=== PATIENT | female | born 1955 ===

== ENCOUNTER 2020-06-05 16:16 | Inpatient (IN) | payer OTHER ==
[2020-06-05] MEDS ORDERED: ONDANSETRON 4 MG/2 ML INJ ONE (16:28)
[2020-06-05] MEDS ORDERED: SODIUM CHLORIDE 0.9% 1000 ML 1,000 ML ONE (16:28)
[2020-06-05] MEDS ORDERED: SODIUM CHLORIDE 0.9% 1000 ML 1,000 ML IV ONE ×2 (16:31→16:32)
--- NOTE | 2020-06-05 16:33 | Emergency Department Report ---
ED General Adult HPI - General Chief complaint: Weakness Stated complaint: HIGH BLOOD SUGAR/NAUSEA VOMITING PUI?: No Time Seen by Provider: 06/05/20 16:25 Source: patient, EMS (Verbal report received from emergency medical services verbal report received from emergency medical services), RN notes reviewed Mode of arrival: Stretcher Limitations: Physical Limitation - History of Present Illness Initial comments: The patient was evaluated in the emergency department for symptoms described in the history of present illness. He/she was evaluated in the context of the global COVID-19 pandemic, which necessitated consideration that the patient might be at risk for infection with the virus that causes COVID-19. Institutional protocols and algorithms that pertain to the evaluation of patients at risk for COVID-19 are in a state of rapid change based on information released by regulatory bodies including the CDC and federal and state organizations. These policies and algorithms were followed during the patient's care in the emergency department. Please note that these policies, procedures and recommendations changed on a rapid basis. Patient is a 64-year-old female. She is not known to myself previously. She has a history of diabetes. She cannot recall the name of her primary care doctor. Presents to the ER via EMS with a complaint of abdominal cramping, nausea vomiting, malaise and weakness. Patient denies fever, positive dry cough, positive urinary retention, positive dry mouth. Patient indicates symptoms have been present for 1 day, constant, abdominal cramping is diffusely distributed, and symptoms do not have exacerbating or relieving factors that she is aware of. Patient speaks both Maltese and Azerbaijani, and this provider is conversant in Azerbaijani. -: Gradual, hour(s) Location: abdomen Consistency: constant Improves with: none Worsens with: none - Related Data Allergies Allergy/AdvReac Type Severity Reaction Status Date / Time sunflower seed Allergy Anaphylaxis Verified 06/05/20 16:53 ED Review of Systems ROS: Stated complaint: HIGH BLOOD SUGAR/NAUSEA VOMITING Other details as noted in HPI Constitutional: malaise, weakness Eyes: denies: eye discharge ENT: denies: congestion Respiratory: no symptoms reported Cardiovascular: denies: chest pain Gastrointestinal: abdominal pain, nausea Genitourinary: as per HPI, other (Urinary retention) Musculoskeletal: as per HPI Neurological: weakness ED Physical Exam - General Limitations: Physical Limitation General appearance: alert, anxious, in distress, obese - Head Head exam: Present: atraumatic, normocephalic - Eye Eye exam: Present: normal appearance, EOMI. Absent: nystagmus - ENT ENT exam: Present: normal exam, normal orophraynx, mucous membranes dry, normal external ear exam - Neck Neck exam: Present: normal inspection, full ROM. Absent: tenderness, meningismus - Respiratory Respiratory exam: Present: normal lung sounds bilaterally. Absent: respiratory distress, wheezes, rales, rhonchi, stridor, decreased breath sounds - Cardiovascular Cardiovascular Exam: Present: normal rhythm, tachycardia, normal heart sounds. Absent: systolic murmur, diastolic murmur, rubs, gallop - GI/Abdominal GI/Abdominal exam: Present: soft, tenderness, other (Mild diffuse abdominal tenderness). Absent: distended, guarding, rebound, rigid, pulsatile mass - Extremities Exam Extremities exam: Present: normal inspection, full ROM, other (2+ pulses noted in the bilateral upper and lower extremities. There is no palpable cord. negative Homans sign. Muscular compartments are soft. The pelvis is stable.). Absent: pedal edema, calf tenderness - Back Exam Back exam: Present: normal inspection. Absent: tenderness, CVA tenderness (R), CVA tenderness (L), paraspinal tenderness, vertebral tenderness - Neurological Exam Neurological exam: Present: alert, other (No facial droop. Tongue midline. Extraocular movements intact bilaterally. Facial sensation intact to light touch in V1, V2, V3 distribution bilaterally. 5 and a 5 strength in 4 extremities. Sensation intact to light touch in 4 extremities.) - Psychiatric Psychiatric exam: Present: anxious - Skin Skin exam: Present: warm, dry, intact, normal color. Absent: rash ED Course Vital Signs 06/05/20 06/05/20 16:35 17:41 Temperature 97.1 F L Pulse Rate 111 H Respiratory 18 18 Rate Blood Pressure 145/84 O2 Sat by Pulse 99 Oximetry - Reevaluation(s) Reevaluation #1: 06/05/20 17:38 Differential diagnosis, including but not limited to: Diabetic ketoacidosis, pneumonia, urinary tract infection, obstruction, obstructive uropathy, gastroparesis, dehydration, hyperosmolar state Assessment and plan: 64-year-old female with abdominal pain, nausea, vomiting and hyperglycemia. Patient found to have metabolic acidosis, hyperglycemia, pseudohyponatremia, lactic acidosis, and renal insufficiency. She endorsed inability to urinate. Ritchie catheter to be placed. X-ray the chest, CT scan of the abdomen pelvis obtained. Patient will be given fluids, pain medication, high-dose insulin. Reassess after data points have resulted. Anticipate admission for the aforementioned. Reevaluation #2: 06/05/20 18:02 CT scan, x-ray of the chest suggested right lower lobe pneumonia, question bacterial versus viral, and possible small bowel obstruction. Pain medication, antibiotics ordered. Nasogastric tube ordered. Discussed pertinent history, physical, pertinent laboratory studies, physical exam findings and CT scan findings with general surgeon on-call, Dr. Moya. He will follow in consultation. Hospital physician, Dr. Yao Nair to admit ED Medical Decision Making - Lab Data Result diagrams: 06/05/20 16:38 06/05/20 16:38 Vital Signs 06/05/20 16:35 Temperature 97.1 F L Pulse Rate 111 H Respiratory 18 Rate Blood Pressure 145/84 O2 Sat by Pulse 99 Oximetry Lab Results 06/05/20 06/05/20 06/05/20 Range/Units 16:38 16:38 16:38 WBC (4.5-11.0) K/mm3 RBC (3.65-5.03) M/mm3 Hgb (10.1-14.3) gm/dl Hct (30.3-42.9) % MCV (79-97) fl MCH (28-32) pg MCHC (30-34) % RDW (13.2-15.2) % Plt Count (140-440) K/mm3 Lymph % (Auto) (13.4-35.0) % Hall % (Auto) (0.0-7.3) % Eos % (Auto) (0.0-4.3) % Baso % (Auto) (0.0-1.8) % Lymph # (Auto) (1.2-5.4) K/mm3 Hall # (Auto) (0.0-0.8) K/mm3 Eos # (Auto) (0.0-0.4) K/mm3 Baso # (Auto) (0.0-0.1) K/mm3 Seg Neutrophils % (40.0-70.0) % Seg Neutrophils # (1.8-7.7) K/mm3 PT (12.2-14.9) Sec. INR (0.87-1.13) VBG pH 7.227 L (7.320-7.420) Sodium (137-145) mmol/L Potassium (3.6-5.0) mmol/L Chloride (98-107) mmol/L Carbon Dioxide (22-30) mmol/L Anion Gap mmol/L BUN (7-17) mg/dL Creatinine (0.6-1.2) mg/dL Estimated GFR ml/min BUN/Creatinine Ratio % Glucose (65-100) mg/dL Lactic Acid 2.60 H* (0.7-2.0) mmol/L Calcium (8.4-10.2) mg/dL Magnesium 2.00 (1.7-2.3) mg/dL Total Bilirubin (0.1-1.2) mg/dL Direct Bilirubin (0-0.2) mg/dL AST (5-40) units/L ALT (7-56) units/L Alkaline Phosphatase (35-129) units/L Total Creatine Kinase 437 H (30-135) units/L Total Protein (6.3-8.2) g/dL Albumin (3.9-5) g/dL Albumin/Globulin Ratio % Lipase (13-60) units/L 06/05/20 06/05/20 06/05/20 Range/Units 16:38 16:38 16:38 WBC 12.2 H (4.5-11.0) K/mm3 RBC 4.98 (3.65-5.03) M/mm3 Hgb 14.2 (10.1-14.3) gm/dl Hct 44.5 H (30.3-42.9) % MCV 89 (79-97) fl MCH 29 (28-32) pg MCHC 32 (30-34) % RDW 13.8 (13.2-15.2) % Plt Count 208 (140-440) K/mm3 Lymph % (Auto) 10.0 L (13.4-35.0) % Hall % (Auto) 4.1 (0.0-7.3) % Eos % (Auto) 0.2 (0.0-4.3) % Baso % (Auto) 0.5 (0.0-1.8) % Lymph # (Auto) 1.2 (1.2-5.4) K/mm3 Hall # (Auto) 0.5 (0.0-0.8) K/mm3 Eos # (Auto) 0.0 (0.0-0.4) K/mm3 Baso # (Auto) 0.1 (0.0-0.1) K/mm3 Seg Neutrophils % 85.2 H (40.0-70.0) % Seg Neutrophils # 10.4 H (1.8-7.7) K/mm3 PT 12.1 L (12.2-14.9) Sec. INR 0.91 (0.87-1.13) VBG pH (7.320-7.420) Sodium 129 L (137-145) mmol/L Potassium 4.7 (3.6-5.0) mmol/L Chloride 97.5 L (98-107) mmol/L Carbon Dioxide 18 L (22-30) mmol/L Anion Gap 18 mmol/L BUN 36 H (7-17) mg/dL Creatinine 1.7 H (0.6-1.2) mg/dL Estimated GFR 30 ml/min BUN/Creatinine Ratio 21 % Glucose 521 H* (65-100) mg/dL Lactic Acid (0.7-2.0) mmol/L Calcium 8.9 (8.4-10.2) mg/dL Magnesium (1.7-2.3) mg/dL Total Bilirubin 0.40 (0.1-1.2) mg/dL Direct Bilirubin < 0.2 (0-0.2) mg/dL AST 33 (5-40) units/L ALT 21 (7-56) units/L Alkaline Phosphatase 163 H (35-129) units/L Total Creatine Kinase (30-135) units/L Total Protein 7.5 (6.3-8.2) g/dL Albumin 4.0 (3.9-5) g/dL Albumin/Globulin Ratio 1.1 % Lipase 49 (13-60) units/L - EKG Data -: EKG Interpreted by Me Rate: tachycardia - EKG Data When compared to previous EKG there are: previous EKG unavailable 06/05/20 17:38 Sinus rhythm, tachycardia, 109 bpm. Left axis deviation, left anterior fascicular block. PVC. Abnormal EKG. Not a STEMI. - Radiology Data Radiology results: pending, report reviewed, image reviewed CT ABDOMEN AND PELVIS WITHOUT CONTRAST INDICATION / CLINICAL INFORMATION: acute abd pain n/v, urinary retention. TECHNIQUE: Axial CT images were obtained through the abdomen and pelvis without IV contrast. All CT scans at this location are performed using CT dose reduction for ALARA by means of automated exposure control. COMPARISON: None available. FINDINGS: LOWER CHEST: Groundglass and nodular opacities in the right lung base with mild groundglass opacity of the left lung base. LIVER: Deniz's configuration versus mild hepatomegaly, measuring 19.0 cm. No focal lesion. GALLBLADDER/BILIARY TREE: Cholecystectomy. PANCREAS: No significant abnormality SPLEEN: No significant abnormality ADRENALS: No significant abnormality KIDNEYS / URETER: Lower pole right renal cyst. No hydronephrosis. URINARY BLADDER: There is mild trabeculation of the bladder, which may be related to partial decompression. No significant wall thickening or perivesicular stranding. REPRODUCTIVE ORGANS: Uterus is absent. No significant adnexal abnormality. STOMACH / SMALL BOWEL: Borderline dilated fluid-filled small bowel demonstrated throughout the abdomen and pelvis. There is relatively focal narrowing of the distal small bowel (series 2 image 143). The terminal ileum is decompressed. No pneumatosis. COLON: The colon is unremarkable. The appendix is normal in caliber. LYMPH NODES: No significant adenopathy. VASCULATURE: Mild atherosclerotic calcification without acute abnormality. OTHER: No free air, free fluid, or focal fluid collection is identified. SKELETAL SYSTEM: No significant findings. IMPRESSION: 1. Fluid-f illed, borderline dilated small bowel with area of mild focal narrowing of the distal small bowel, favoring low-grade partial small bowel obstruction. 2. Mild groundglass and nodular opacities in the right greater than left lung bases, suspicious for atypical infectious or inflammatory process. 3. Mild trabeculation of the bladder, which is likely related to partial decompression. No significant wall thickening or perivesicular stranding. 4. Other findings as above. Signer Name: Dustin Jacobs MD Signed: 06/05/2020 4:36 PM CHEST 1 VIEW INDICATION: n/v weak COMPARISON: None FINDINGS: Support devices: None Heart: Normal Lungs/Pleura: There is an ill-defined area of parenchymal density in the right lower lung, worrisome for focal pneumonia or, less likely, abnormal mass. Left lung is clear. IMPRESSION: 1. Right lower lung disease, most likely focal pneumonia. Suggest follow-up to document clearing and exclude lung mass. Signer Name: Odilon Berkowitz MD Signed: 06/05/2020 4:33 PM Workstation Name: [id number] Critical Care Time: Yes Critical care time in (mins) excluding proc time.: 35 Critical care attestation.: If time is entered above; I have spent that time in minutes in the direct care of this critically ill patient, excluding procedure time. ED Disposition Clinical Impression: Hyperglycemia, Metabolic acidosis, Renal insufficiency, Urinary retention, Lactic acidosis, Acute abdominal pain, Suspected 2019 novel coronavirus infection, UTI (urinary tract infection) Disposition: 09 OP ADMIT IP TO THIS HOSP Is pt being admited?: Yes Does the pt Need Aspirin: No Condition: Serious Referrals: PRIMARY CARE, [Primary Care Provider] - 3-5 Days
[2020-06-05 17:08] LABS: Basophils # (Auto) 0.1 K/mm3 (0.0-0.1); Basophils % (Auto) 0.5 % (0.0-1.8); Eosinophils % (Auto) 0.2 % (0.0-4.3); Hematocrit 44.5 % (30.3-42.9); Hemoglobin 14.2 gm/dl (10.1-14.3); Lymphocytes # (Auto) 1.2 K/mm3 (1.2-5.4); Mean Corpuscular HGB Conc 32 % (30-34); Mean Corpuscular Volume 89 fl (79-97); Monocytes # (Auto) 0.5 K/mm3 (0.0-0.8); Monocytes % (Auto) 4.1 % (0.0-7.3); Platelet Count 208 K/mm3 (140-440); Red Blood Count 4.98 M/mm3 (3.65-5.03); Red Cell Distribution Width 13.8 % (13.2-15.2)
[2020-06-05 17:18] LABS: INR 0.91 (0.87-1.13)
[2020-06-05 17:32] LABS: Alanine Aminotransferase 21 units/L (7-56); BUN/Creatinine Ratio 21; Blood Urea Nitrogen 36 mg/dL (7-17); Calcium 8.9 mg/dL (8.4-10.2); Hemolysis Index 58
[2020-06-05 17:34] LABS: Bilirubin,Direct < 0.2 mg/dL (0-0.2)
[2020-06-05] MEDS ORDERED: INSULIN REGULAR, HUMAN 100 UNITS/1 ML IV ONE (17:35)
[2020-06-05] MEDS ORDERED: METOCLOPRAMIDE 10 MG/2 ML INJ IV ONE (17:36)
--- NOTE | 2020-06-05 17:37 | XRay Report ---
CHEST 1 VIEW INDICATION: n/v weak COMPARISON: None FINDINGS: Support devices: None Heart: Normal Lungs/Pleura: There is an ill-defined area of parenchymal density in the right lower lung, worrisome for focal pneumonia or, less likely, abnormal mass. Left lung is clear. IMPRESSION: 1. Right lower lung disease, most likely focal pneumonia. Suggest follow-up to document clearing and exclude lung mass. Signer Name: Odilon Berkowitz MD Signed: 06/05/2020 5:33 PM Workstation Name: [id number]
--- NOTE | 2020-06-05 17:41 | Cat Scan Report ---
CT ABDOMEN AND PELVIS WITHOUT CONTRAST INDICATION / CLINICAL INFORMATION: acute abd pain n/v, urinary retention. TECHNIQUE: Axial CT images were obtained through the abdomen and pelvis without IV contrast. All CT scans at this location are performed using CT dose reduction for ALARA by means of automated exposure control. COMPARISON: None available. FINDINGS: LOWER CHEST: Groundglass and nodular opacities in the right lung base with mild groundglass opacity o f the left lung base. LIVER: Deniz's configuration versus mild hepatomegaly, measuring 19.0 cm. No focal lesion. GALLBLADDER/BILIARY TREE: Cholecystectomy. PANCREAS: No significant abnormality SPLEEN: No significant abnormality ADRENALS: No significant abnormality KIDNEYS / URETER: Lower pole right renal cyst. No hydronephrosis. URINARY BLADDER: There is mild trabeculation of the bladder, which may be related to partial decompre ssion. No significant wall thickening or perivesicular stranding. REPRODUCTIVE ORGANS: Uterus is absent. No significant adnexal abnormality. STOMACH / SMALL BOWEL: Borderline dilated fluid-filled small bowel demonstrated throughout the abdome n and pelvis. There is relatively focal narrowing of the distal small bowel (series 2 image 143). The terminal ileum is decompressed. No pneumatosis. COLON: The colon is unremarkable. The appendix is normal in caliber. LYMPH NODES: No significant adenopathy. VASCULATURE: Mild atherosclerotic calcification without acute abnormality. OTHER: No free air, free fluid, or focal fluid collection is identified. SKELETAL SYSTEM: No significant findings. IMPRESSION: 1. Fluid-filled, borderline dilated small bowel with area of mild focal narrowing of the distal small bowel, favoring low-grade partial small bowel obstruction. 2. Mild groundglass and nodular opacities in the right greater than left lung bases, suspicious for a typical infectious or inflammatory process. 3. Mild trabeculation of the bladder, which is likely related to partial decompression. No significan t wall thickening or perivesicular stranding. 4. Other findings as above. Signer Name: Dustin Jacobs MD Signed: 06/05/2020 5:36 PM Workstation Name: [id number]
[2020-06-05] MEDS ORDERED: cefTRIAXone/NS 1 GM/50 ML 1 GM/50 ML BAG IV ONE (17:55)
[2020-06-05] MEDS ORDERED: AZITHROMYCIN/NS 500 MG/250 ML 500 MG/250 ML BAG IV ONE (17:55)
[2020-06-05] MEDS ORDERED: SODIUM CHLORIDE 0.9% 500 ML 500 ML IV ONE (17:56)
[2020-06-05] MEDS ORDERED: MORPHINE 4 MG/1 ML INJ IV ONE (18:01)
[2020-06-05 18:23] LABS: Bacteria,Urine 3+ /HPF (Negative); Bilirubin,Urine NEG (Negative); Blood,Urine SM (Negative); Color,Urine Yellow (Yellow); Mucus,Urine FEW /HPF; Urobilinogen,Urine < 2.0 mg/dL (<2.0)
[2020-06-05 18:24] LABS: Protein,Urine >500 mg/dL (Negative)
[2020-06-05] MEDS ORDERED: DEXTROSE 50% IN WATER (25GM) 50 ML SYRINGE IV PRN (18:34)
[2020-06-05] MEDS ORDERED: MORPHINE 2 MG/1 ML INJ IV PRN (18:34)
[2020-06-05] MEDS ORDERED: ACETAMINOPHEN 325 MG TAB PO PRN (18:34)
[2020-06-05] MEDS ORDERED: ONDANSETRON 4 MG/2 ML INJ IV PRN (18:34)
--- NOTE | 2020-06-05 18:47 | History and Physical Report ---
History of Present Illness Date of examination: 06/05/20 Date of admission: 06/05/2020 Chief complaint: Nausea and vomiting Abdominal pain Elevated blood glucose History of present illness: 64-year-old female with known history of diabetes mellitus presenting to the e mergency room today complaining of nausea and vomiting and associated abdominal pain. She has also been having generalized weakness and malaise. She denies any fever or chills, no chest pain or shortness of breath, no hematuria or dysuria, no headaches or dizziness. Denies diarrhea or constipation. Patient denies any sick contacts and no recent travel. Denies contact with anyone with COVID-19. She also indicates that her blood glucose has not been well controlled. Patient indicates that symptoms has been ongoing for the past 24 hours. Abdominal pain has been crampy and diffuse. No known relieving or exacerbating factor. Work-up in the emergency room reveals elevated lactic acid level, hyperglycemia, hyponatremia and elevated BUN and creatinine. CT of the abdomen and pelvis reveals: 1. Fluid-filled, borderline dilated small bowel with area of mild focal narrowing of the distal small bowel, favoring low-grade partial small bowel obstruction. 2. Mild groundglass and nodular opacities in the right greater than left lung bases, suspicious for atypical infectious or inflammatory process. Urinalysis also reveals UTI. Patient has been admitted for small bowel obstruction, pneumonia with possible COVID-19 and lactic acidosis. General surgeon Dr. Moya has been consulted by the ER physician for the bowel obstruction. Past History Past Medical History: diabetes Past Surgical History: No surgical history Social history: no significant social history Family history: no significant family history Medications and Allergies Allergies Allergy/AdvReac Type Severity Reaction Status Date / Time sunflower seed Allergy Anaphylaxis Verified 06/05/20 16:53 Active Meds: Active Medications Azithromycin (Zithromax/Ns) 500 mg in 250 mls @ 250 mls/hr IV ONCE ONE; Protocol Stop: 06/05/20 18:54 Review of Systems Constitutional: no fever, no chills Ears, nose, mouth and throat: no nasal congestion, no sore throat Respiratory: no cough, no shortness of breath Gastrointestinal: abdominal pain, nausea, vomiting, no diarrhea, no hematemesis, no coffee ground emesis, no melena Genitourinary Female: no flank pain, no dysuria, no hematuria Musculoskeletal: no neck pain, no low back pain Integumentary: no rash, no pruritis Neurological: no headaches, no change in speech Psychiatric: no anxiety, no depression Endocrine: no polyphagia, no polydipsia, no polyuria, no nocturia Exam - Constitutional Vitals: Temp Pulse Resp BP Pulse Ox 97.1 F L 110 H 16 119/65 97 06/05/20 16:35 06/05/20 18:37 06/05/20 18:37 06/05/20 18:37 06/05/20 18:37 General appearance: Present: no acute distress, well-nourished, other (Ill- looking) - EENT Eyes: Present: PERRL, EOM intact. Absent: scleral icterus ENT: hearing intact, clear oral mucosa, dentition normal - Neck Neck: Present: supple, normal ROM - Respiratory Respiratory effort: normal Respiratory: bilateral: diminished - Cardiovascular Rhythm: regular Heart Sounds: Present: S1 & S2. Absent: gallop, systolic murmur, diastolic mu rmur, rub - Extremities Extremities: no ischemia, pulses intact, pulses symmetrical, No edema, normal temperature, normal color, Full ROM Peripheral Pulses: within normal limits - Abdominal General gastrointestinal: Present: soft, tender (Mild epigastric tenderness, no rebound tenderness, no guarding), non-distended, normal bowel sounds. Absent: mass - Integumentary Integumentary: Present: clear, warm, dry. Absent: rash - Musculoskeletal Musculoskeletal: strength equal bilaterally - Psychiatric Psychiatric: appropriate mood/affect, intact judgment & insight, memory intact, cooperative - Neurologic Neurologic: CNII-XII intact, no focal deficits, moves all extremities Results - Labs CBC & Chem 7: 06/05/20 16:38 06/05/20 18:20 Labs: Abnormal lab results 06/05/20 06/05/20 06/05/20 Range/Units 16:38 16:38 16:38 WBC (4.5-11.0) K/mm3 Hct (30.3-42.9) % Lymph % (Auto) (13.4-35.0) % Seg Neutrophils % (40.0-70.0) % Seg Neutrophils # (1.8-7.7) K/mm3 PT (12.2-14.9) Sec. VBG pH 7.227 L (7.320-7.420) Sodium (137-145) mmol/L Chloride (98-107) mmol/L Carbon Dioxide (22-30) mmol/L BUN (7-17) mg/dL Creatinine (0.6-1.2) mg/dL Glucose (65-100) mg/dL POC Glucose (70-105) mg/dL Lactic Acid 2.60 H* (0.7-2.0) mmol/L Alkaline Phosphatase (35-129) units/L Total Creatine Kinase 437 H (30-135) units/L Urine WBC (Auto) (0.0-6.0) /HPF 06/05/20 06/05/20 06/05/20 Range/Units 16:38 16:38 16:38 WBC 12.2 H (4.5-11.0) K/mm3 Hct 44.5 H (30.3-42.9) % Lymph % (Auto) 10.0 L (13.4-35.0) % Seg Neutrophils % 85.2 H (40.0-70.0) % Seg Neutrophils # 10.4 H (1.8-7.7) K/mm3 PT 12.1 L (12.2-14.9) Sec. VBG pH (7.320-7.420) Sodium 129 L (137-145) mmol/L Chloride 97.5 L (98-107) mmol/L Carbon Dioxide 18 L (22-30) mmol/L BUN 36 H (7-17) mg/dL Creatinine 1.7 H (0.6-1.2) mg/dL Glucose 521 H* (65-100) mg/dL POC Glucose (70-105) mg/dL Lactic Acid (0.7-2.0) mmol/L Alkaline Phosphatase 163 H (35-129) units/L Total Creatine Kinase (30-135) units/L Urine WBC (Auto) (0.0-6.0) /HPF 06/05/20 06/05/20 Range/Units 17:27 17:48 WBC (4.5-11.0) K/mm3 Hct (30.3-42.9) % Lymph % (Auto) (13.4-35.0) % Seg Neutrophils % (40.0-70.0) % Seg Neutrophils # (1.8-7.7) K/mm3 PT (12.2-14.9) Sec. VBG pH (7.320-7.420) Sodium (137-145) mmol/L Chloride (98-107) mmol/L Carbon Dioxide (22-30) mmol/L BUN (7-17) mg/dL Creatinine (0.6-1.2) mg/dL Glucose (65-100) mg/dL POC Glucose 448 H (70-105) mg/dL Lactic Acid (0.7-2.0) mmol/L Alkaline Phosphatase (35-129) units/L Total Creatine Kinase (30-135) units/L Urine WBC (Auto) 42.0 H (0.0-6.0) /HPF Assessment and Plan - Patient Problems (1) Small bowel obstruction Current Visit: Yes Status: Acute Plan to address problem: Patient has been made n.p.o. and NG tube has also been placed. Consult placed to general surgeon -Dr. Moya for evaluation. (2) Hyperglycemia Current Visit: Yes Status: Acute Plan to address problem: We will monitor Accu-Cheks for good glycemic control. Will check hemoglobin A1c. Dietary consult placed. (3) Metabolic acidosis Current Visit: Yes Status: Acute Plan to address problem: Possibly secondary to the intractable nausea and vomiting with accompanying hypoglycemia. We will continue on IV fluid and monitor chemistry. (4) Renal insufficiency Current Visit: Yes Status: Acute Plan to address problem: Possibly secondary to volume loss. We will continue IV fluid hydration. Baseline creatinine unknown. We will place consult to nephrology for evaluation and recommendation. (5) Suspected 2019 novel coronavirus infection Current Visit: Yes Status: Acute Plan to address problem: Patient placed on isolation precautions. Consult placed to infectious disease for evaluation. We will await COVID-19 testing. (6) UTI (urinary tract infection) Current Visit: Yes Status: Acute Plan to address problem: We will continue on empiric IV antibiotics. We will await urine culture result. (7) DVT prophylaxis Current Visit: Yes Status: Acute Plan to address problem: Patient placed on sequential compression device. We will hold anticoagulation in view of possible surgical intervention-for small bowel obstruction. (8) Full code status Current Visit: Yes Status: Acute Plan to address problem: Patient is a full code.
[2020-06-05] MEDS ORDERED: AZITHROMYCIN/NS 500 MG/250 ML 500 MG/250 ML BAG IV SCH (19:00)
[2020-06-05 19:01] LABS: C-Reactive Protein 4.9 mg/dL (0.00-1.30)
--- NOTE | 2020-06-05 19:17 | XRay Report ---
ABDOMEN ONE VIEW INDICATION / CLINICAL INFORMATION: s/p ng tube placement. COMPARISON: None available. FINDINGS: A nasogastric tube is present with the tip superimposed over the expected position of the gastric ant rum Signer Name: Woo Milner MD FACR Signed: 06/05/2020 7:13 PM Workstation Name: [id number]
[2020-06-05] MEDS: INSULIN LISPRO 100 UNIT/ML SUB-Q SCH (22:27)
[2020-06-06] MEDS: cefTRIAXone/NS 2 GM/100 ML 2 GM/100 ML BAG IV SCH (05:00)
[2020-06-06 05:54] LABS: Basophils % (Auto) 0.1 % (0.0-1.8); Eosinophils # (Auto) 0.1 K/mm3 (0.0-0.4); Eosinophils % (Auto) 0.6 % (0.0-4.3); Hematocrit 34.1 % (30.3-42.9); Hemoglobin 11.5 gm/dl (10.1-14.3); Lymphocytes % (Auto) 9.4 % (13.4-35.0); Mean Corpuscular HGB Conc 34 % (30-34); Mean Corpuscular Volume 87 fl (79-97); Monocytes # (Auto) 0.8 K/mm3 (0.0-0.8); Monocytes % (Auto) 7.2 % (0.0-7.3); Platelet Count 179 K/mm3 (140-440); Red Blood Count 3.93 M/mm3 (3.65-5.03); Red Cell Distribution Width 13.9 % (13.2-15.2)
[2020-06-06 06:06] LABS: Calcium 7.7 mg/dL (8.4-10.2); INR 1.07 (0.87-1.13)
[2020-06-06] MEDS: SODIUM CHLORIDE 0.9% 1000 ML 1,000 ML IV SCH ×4 (06:23→21:33)
[2020-06-06] MEDS: INSULIN GLARGINE 100 UNITS/ML SUB-Q SCH ×2 (07:20→08:00)
--- NOTE | 2020-06-06 07:26 | Progress Note ---
Assessment and Plan Assessment and plan: (1) Small bowel obstruction Current Visit: Yes Status: Acute Plan to address problem: Patient has been made n.p.o. and NG tube has also been placed. We will follow general surgery recommendation (2) Hyperglycemia Current Visit: Yes Status: Acute Plan to address problem: We will monitor Accu-Cheks for good glycemic control. Will check hemoglobin A1c. Dietary consult placed. (3) Metabolic acidosis Current Visit: Yes Status: Acute Plan to address problem: Possibly secondary to the intractable nausea and vomiting with accompanying hypoglycemia. We will continue on IV fluid and monitor chemistry. (4) Renal insufficiency Current Visit: Yes Status: Acute Plan to address problem: Possibly secondary to volume loss. We will continue IV fluid hydration. Baseline creatinine unknown. We will place consult to nephrology for evaluation and recommendation. (5) Suspected 2019 novel coronavirus infection Current Visit: Yes Status: Acute Plan to address problem: Patient placed on isolation precautions. Consult placed to infectious disease for evaluation. We will await COVID-19 testing. (6) UTI (urinary tract infection) Current Visit: Yes Status: Acute Plan to address problem: We will continue on empiric IV antibiotics. We will await urine culture result. (7) DVT prophylaxis Current Visit: Yes Status: Acute Plan to address problem: Patient placed on sequential compression device. We will hold anticoagulation in view of possible surgical intervention-for small bowel obstruction. (8) Full code status Current Visit: Yes Status: Acute Plan to address problem: Patient is a full code. 06/06/2020 -Patient has NG tube in place, Dr. Moya consulted and follow recommendation for removal of NG tube. Minimal output from the NG tube, no abdominal pain. Continue with IV fluids. Chest x-ray ordered. -Patient's hemoglobin A1c is 13.2, I added Lantus 20 units every morning, 10 units at bedtime Humalog, continue sliding scale insulin. Monitor blood sugar and adjust insulin as needed. Recent blood sugar is 349. Metabolic acidosis resolved. -BUN/creatinine is improving -COVID-19 test is pending -Patient is on IV antibiotics for UTI, urine culture Disposition; per clinical Course History Interval history: Patient was seen and evaluated this morning Patient has NG tube in place, minimal dark output Patient said abdominal pain is getting better Hospitalist Physical - Physical exam Narrative exam: Not in cardiopulmonary distress. The patient appeared well nourished and normally developed. Vital signs as documented. Head exam is unremarkable. No scleral icterus . Neck is without jugular venous distension, thyromegaly, or carotid bruits. Lungs are clear to auscultation. Cardiac exam reveals regular rate and Rhythm. Abdominal exam reveals normal bowel sounds, nontender, no organomegaly. Extremities are nonedematous and both femoral and pedal pulses are normal. 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 No focal weakness. - Constitutional Vitals: Temp Pulse Resp BP Pulse Ox 99.0 F 108 H 22 126/60 92 06/06/20 04:46 06/06/20 04:46 06/06/20 04:46 06/06/20 04:46 06/06/20 04:46 General appearance: Present: no acute distress, well-nourished, other (Ill- looking) Results - Labs CBC & Chem 7: 06/06/20 04:26 06/06/20 04:26 Labs: Laboratory Last Values WBC 10.6 K/mm3 (4.5-11.0) 06/06/20 04:26 RBC 3.93 M/mm3 (3.65-5.03) 06/06/20 04:26 Hgb 11.5 gm/dl (10.1-14.3) 06/06/20 04:26 Hct 34.1 % (30.3-42.9) D 06/06/20 04:26 MCV 87 fl (79-97) 06/06/20 04:26 MCH 29 pg (28-32) 06/06/20 04:26 MCHC 34 % (30-34) 06/06/20 04:26 RDW 13.9 % (13.2-15.2) 06/06/20 04:26 Plt Count 179 K/mm3 (140-440) 06/06/20 04:26 Lymph % (Auto) 9.4 % (13.4-35.0) L 06/06/20 04:26 [place] % (Auto) 7.2 % (0.0-7.3) 06/06/20 04:26 Eos % (Auto) 0.6 % (0.0-4.3) 06/06/20 04:26 Baso % (Auto) 0.1 % (0.0-1.8) 06/06/20 04:26 Lymph # (Auto) 1.0 K/mm3 (1.2-5.4) L 06/06/20 04:26 [place] # (Auto) 0.8 K/mm3 (0.0-0.8) 06/06/20 04:26 Eos # (Auto) 0.1 K/mm3 (0.0-0.4) 06/06/20 04:26 Baso # (Auto) 0.0 K/mm3 (0.0-0.1) 06/06/20 04:26 Seg Neutrophils % 82.7 % (40.0-70.0) H 06/06/20 04:26 Seg Neutrophils # 8.8 K/mm3 (1.8-7.7) H 06/06/20 04:26 PT 13.7 Sec. (12.2-14.9) 06/06/20 04:26 INR 1.07 (0.87-1.13) 06/06/20 04:26 D-Dimer 1205.57 ng/mlDDU (0-234) H 06/05/20 18:20 VBG pH 7.227 (7.320-7.420) L 06/05/20 16:38 Sodium 139 mmol/L (137-145) D 06/06/20 04:26 Potassium 4.4 mmol/L (3.6-5.0) 06/06/20 04:26 Chloride 110.5 mmol/L (98-107) H 06/06/20 04:26 Carbon Dioxide 20 mmol/L (22-30) L 06/06/20 04:26 Anion Gap 13 mmol/L 06/06/20 04:26 BUN 35 mg/dL (7-17) H 06/06/20 04:26 Creatinine 1.3 mg/dL (0.6-1.2) H 06/06/20 04:26 Estimated GFR 42 ml/min 06/06/20 04:26 BUN/Creatinine Ratio 27 % 06/06/20 04:26 Glucose 340 mg/dL (65-100) H 06/06/20 04:26 POC Glucose 426 mg/dL (70-105) H 06/05/20 21:25 Hemoglobin A1c 13.4 % (4-6) H 06/05/20 16:38 Lactic Acid 2.60 mmol/L (0.7-2.0) H* 06/05/20 16:38 Calcium 7.7 mg/dL (8.4-10.2) L 06/06/20 04:26 Magnesium 2.00 mg/dL (1.7-2.3) 06/05/20 16:38 Ferritin 255.9 ng/mL (10.0-200.0) H 06/05/20 18:20 Total Bilirubin 0.40 mg/dL (0.1-1.2) 06/05/20 16:38 Direct Bilirubin < 0.2 mg/dL (0-0.2) 06/05/20 16:38 AST 33 units/L (5-40) 06/05/20 16:38 ALT 21 units/L (7-56) 06/05/20 16:38 Alkaline Phosphatase 163 units/L (35-129) H 06/05/20 16:38 Lactate Dehydrogenase 336 units/L (91-180) H 06/05/20 18:20 Total Creatine Kinase 437 units/L (30-135) H 06/05/20 16:38 C-Reactive Protein 4.90 mg/dL (0.00-1.30) H 06/05/20 18:20 Total Protein 7.5 g/dL (6.3-8.2) 06/05/20 16:38 Albumin 4.0 g/dL (3.9-5) 06/05/20 16:38 Albumin/Globulin Ratio 1.1 % 06/05/20 16:38 Lipase 49 units/L (13-60) 06/05/20 16:38 Urine Color Yellow (Yellow) 06/05/20 17:27 Urine Turbidity Cloudy (Clear) 06/05/20 17:27 Urine pH 5.0 (5.0-7.0) 06/05/20 17:27 Ur Specific [place] 1.016 (1.003-1.030) 06/05/20 17:27 Urine Protein >500 mg/dL (Negative) 06/05/20 17:27 Urine Glucose (UA) >=500 mg/dL (Negative) 06/05/20 17:27 Urine Ketones Neg mg/dL (Negative) 06/05/20 17:27 Urine Blood Sm (Negative) 06/05/20 17:27 Urine Nitrite Neg (Negative) 01/29/21 17:27 Urine Bilirubin Neg (Negative) 06/05/20 17:27 Urine Urobilinogen < 2.0 mg/dL (<2.0) 06/05/20 17:27 Ur Leukocyte Esterase Sm (Negative) 06/05/20 17:27 Urine WBC (Auto) 42.0 /HPF (0.0-6.0) H 06/05/20 17:27 Urine RBC (Auto) 5.0 /HPF (0.0-6.0) 06/05/20 17:27 U Epithel Cells (Auto) 1.0 /HPF (0-13.0) 06/05/20 17:27 Urine Bacteria (Auto) 3+ /HPF (Negative) 06/05/20 17:27 Urine WBC Clumps 2+ /HPF 06/05/20 17:27 Urine Mucus Few /HPF 06/05/20 17:27 Urine Yeast (Budding) 3+ /HPF 06/05/20 17:27 Microbiology: Microbiology 06/05/20 18:20 Peripheral/Venous Blood Culture - Preliminary Culture in Progress 06/05/20 18:31 Peripheral/Venous Blood Culture - Preliminary Culture in Progress Ritchie/IV: Voiding Method Indwelling Catheter IV Catheter Type [Right INT / Saline Lock Antecubital] Active Medications - Current Medications Current Medications: Generic Name Dose Route Start Last Admin Trade Name Freq PRN Reason Stop Dose Admin Acetaminophen 650 mg 06/05/20 18:34 Acetaminophen 325 Mg Tab PO Q4H PRN Pain MILD(1-3)/Fever >100.5/AHN Dextrose 50 ml 06/05/20 18:34 Dextrose 50% In Water (25gm) 50 Ml Syringe IV Q30MIN PRN Hypoglycemia Protocol Sodium Chloride 1,000 mls @ 150 mls/hr 06/05/20 18:45 06/06/20 06:23 Nacl 0.9% 1000 Ml IV 150 mls/hr DIRECT BRIAN Administration Ceftriaxone Sodium 2 gm in 100 mls @ 200 mls/hr 06/06/20 06:00 06/06/20 05:00 Rocephin/Ns 2 Gm/100 Ml IV 200 mls/hr Q24H BRIAN Administration Protocol Azithromycin 500 mg in 250 mls @ 250 mls/hr 06/05/20 19:00 06/05/20 19:53 Zithromax/Ns IV 250 mls/hr Q24H [facility] Administration Protocol Insulin Glargine 20 units 06/06/20 07:18 Insulin Glargine 100 Units/Ml SUB-Q QAMDIAB [facility] Insulin Human Lispro 0 unit 06/05/20 22:00 06/05/20 22:27 Insulin Lispro 100 Unit/Ml SUB-Q 8 unit ACHS [facility] Administration Protocol Insulin Human Lispro 10 unit 06/06/20 07:30 Insulin Lispro 100 Unit/Ml SUB-Q AC [facility] Morphine Sulfate 2 mg 06/05/20 18:34 Morphine 2 Mg/1 Ml Inj IV Q4H PRN Pain, Moderate (4-6) Ondansetron HCl 4 mg 06/05/20 18:34 Ondansetron 4 Mg/2 Ml Inj IV Q8H PRN Nausea And Vomiting Sodium Chloride 10 ml 06/05/20 22:00 06/05/20 22:27 Sodium Chloride 0.9% 10 Ml Flush Syringe IV 10 ml BID BRIAN Administration Sodium Chloride 10 ml 06/05/20 18:34 Sodium Chloride 0.9% 10 Ml Flush Syringe IV PRN PRN LINE FLUSH
[2020-06-06] MEDS: INSULIN LISPRO 100 UNIT/ML SUB-Q SCH ×7 (07:30→21:32)
--- NOTE | 2020-06-06 09:09 | Consultation ---
History of Present Illness - Reason for Consult Consult date: 06/06/20 acute renal failure - History of Present Illness The patient is a 64 year old female was admitted yesterday for worsening we akness and abdominal pain, CT was significant for partial small bowel obstruction, she was alsoted to have UTI. creatinine was elvated and renal consult was requested Past History Past Medical History: diabetes Past Surgical History: No surgical history Social history: no significant social history Family history: no significant family history Medications and Allergies Allergies Allergy/AdvReac Type Severity Reaction Status Date / Time sunflower seed Allergy Anaphylaxis Verified 06/05/20 16:53 Home Medications Medication Instructions Recorded Confirmed Last Taken Type No Known Home Medications [No 06/06/20 06/06/20 Unknown History Reported Home Medications] Active Meds: Active Medications Acetaminophen (Acetaminophen 325 Mg Tab) 650 mg PO Q4H PRN PRN Reason: Pain MILD(1-3)/Fever >100.5/AHN Dextrose (Dextrose 50% In Water (25gm) 50 Ml Syringe) 50 ml IV Q30MIN PRN; Protocol PRN Reason: Hypoglycemia Sodium Chloride (Nacl 0.9% 1000 Ml) 1,000 mls @ 150 mls/hr IV DIRECT BRIAN Last Admin: 06/06/20 06:23 Dose: 150 mls/hr Documented by: Ceftriaxone Sodium (Rocephin/Ns 2 Gm/100 Ml) 2 gm in 100 mls @ 200 mls/hr IV Q24H BRIAN; Protocol Last Admin: 06/06/20 05:00 Dose: 200 mls/hr Documented by: Azithromycin (Zithromax/Ns) 500 mg in 250 mls @ 250 mls/hr IV Q24H BRIAN; Protocol Stop: 06/09/20 19:59 Last Admin: 06/05/20 19:53 Dose: 250 mls/hr Documented by: Insulin Glargine (Insulin Glargine 100 Units/Ml) 20 units SUB-Q QAMDIAB BRIAN Insulin Human Lispro (Insulin Lispro 100 Unit/Ml) 0 unit SUB-Q ACHS BRIAN; Protocol Last Admin: 06/06/20 07:30 Dose: 6 unit Documented by: Insulin Human Lispro (Insulin Lispro 100 Unit/Ml) 10 unit SUB-Q AC BRIAN Last Admin: 06/06/20 07:30 Dose: 10 unit Documented by: Morphine Sulfate (Morphine 2 Mg/1 Ml Inj) 2 mg IV Q4H PRN PRN Reason: Pain, Moderate (4-6) Ondansetron HCl (Ondansetron 4 Mg/2 Ml Inj) 4 mg IV Q8H PRN PRN Reason: Nausea And Vomiting Sodium Chloride (Sodium Chloride 0.9% 10 Ml Flush Syringe) 10 ml IV BID BRIAN Last Admin: 06/05/20 22:27 Dose: 10 ml Documented by: Sodium Chloride (Sodium Chloride 0.9% 10 Ml Flush Syringe) 10 ml IV PRN PRN PRN Reason: LINE FLUSH Review of Systems All systems: negative Exam - Vital Signs Vital signs: Vital Signs Temp Pulse Resp BP Pulse Ox 97.1 F L 111 H 18 145/84 99 06/05/20 16:35 06/05/20 16:35 06/05/20 16:35 06/05/20 16:35 06/05/20 16:35 - General Appearance General appearance: well-developed, well-nourished EENT: mucous membranes dry Neck: Present: neck supple Respiratory: Clear to Ascultation Heart: regular, S1S2 Neurologic: no focal deficit, no asterixis Musculoskeletal: Present: other (no edema in BLE) Results - Lab Results 06/06/20 04:26 06/06/20 04:26 Most recent lab results Calcium 7.7 mg/dL (8.4-10.2) L 06/06/20 04:26 Magnesium 2.00 mg/dL (1.7-2.3) 06/05/20 16:38 Assessment and Plan (1) Small bowel obstruction (2) Hyperglycemia (3) Metabolic acidosis (4) Renal insufficiency (5) Suspected 2019 novel coronavirus infection (6) UTI (urinary tract infection) Started on IVF and creatinine is trending down no hydronephrosis on CT AP cont NS, no pulm edema on CXR renally dose meds strict I&O daily weights
--- NOTE | 2020-06-06 09:48 | XRay Report ---
ABDOMEN 1 VIEW INDICATION / CLINICAL INFORMATION: f/u SBO. COMPARISON: None available. FINDINGS: Nasogastric tube remains in place. The bowel gas pattern is nonspecific in appearance. No definite ev idence of obstruction on this exam. Signer Name: Woo Milner MD FACR Signed: 06/06/2020 9:43 AM Workstation Name: [id number]
--- NOTE | 2020-06-06 11:15 | Consultation ---
History of Present Illness Consult date: 06/06/20 Reason for consult: abdominal pain - History of present illness History of present illness: 64 yo diabetic female with one day h/o diffuse, crampy abdominal pain with nausea and vomiting. Last BM was 2 days ago. No melena, hematochezia or hematemesis. She has had a prior laparoscopic cholecystectomy. She is feeling better after 12 hours of NG suctioning. Past History Past Medical History: diabetes Past Surgical History: cholecystectomy Social history: no significant social history Family history: no significant family history Medications and Allergies Allergies Allergy/AdvReac Type Severity Reaction Status Date / Time sunflower seed Allergy Anaphylaxis Verified 06/05/20 16:53 Home Medications Medication Instructions Recorded Confirmed Last Taken Type No Known Home Medications [No 06/06/20 06/06/20 Unknown History Reported Home Medications] Active Meds: Active Medications Acetaminophen (Acetaminophen 325 Mg Tab) 650 mg PO Q4H PRN PRN Reason: Pain MILD(1-3)/Fever >100.5/AHN Dextrose (Dextrose 50% In Water (25gm) 50 Ml Syringe) 50 ml IV Q30MIN PRN; Protocol PRN Reason: Hypoglycemia Sodium Chloride (Nacl 0.9% 1000 Ml) 1,000 mls @ 150 mls/hr IV DIRECT BRIAN Last Admin: 06/06/20 06:23 Dose: 150 mls/hr Documented by: Ceftriaxone Sodium (Rocephin/Ns 2 Gm/100 Ml) 2 gm in 100 mls @ 200 mls/hr IV Q24H BRIAN; Protocol Last Admin: 06/06/20 05:00 Dose: 200 mls/hr Documented by: Azithromycin (Zithromax/Ns) 500 mg in 250 mls @ 250 mls/hr IV Q24H BRIAN; Protocol Stop: 06/09/20 19:59 Last Admin: 06/05/20 19:53 Dose: 250 mls/hr Documented by: Insulin Glargine (Insulin Glargine 100 Units/Ml) 20 units SUB-Q QAMDIAB BRIAN Last Admin: 06/06/20 08:00 Dose: Not Given Documented by: Insulin Human Lispro (Insulin Lispro 100 Unit/Ml) 0 unit SUB-Q ACHS BRIAN; Protocol Last Admin: 06/06/20 07:30 Dose: 6 unit Documented by: Insulin Human Lispro (Insulin Lispro 100 Unit/Ml) 10 unit SUB-Q AC [facility] Last Admin: 06/06/20 07:30 Dose: 10 unit Documented by: Morphine Sulfate (Morphine 2 Mg/1 Ml Inj) 2 mg IV Q4H PRN PRN Reason: Pain, Moderate (4-6) Ondansetron HCl (Ondansetron 4 Mg/2 Ml Inj) 4 mg IV Q8H PRN PRN Reason: Nausea And Vomiting Sodium Chloride (Sodium Chloride 0.9% 10 Ml Flush Syringe) 10 ml IV BID [facility] Last Admin: 06/06/20 10:05 Dose: 10 ml Documented by: Sodium Chloride (Sodium Chloride 0.9% 10 Ml Flush Syringe) 10 ml IV PRN PRN PRN Reason: LINE FLUSH Review of Systems All systems: negative (none) Exam Vital Signs Temp Pulse Resp BP Pulse Ox 97.1 F L 111 H 18 145/84 99 06/05/20 16:35 06/05/20 16:35 06/05/20 16:35 06/05/20 16:35 06/05/20 16:35 - General physical appearance Positive: well developed, well nourished, no distress - Eyes Positive: PERRL, normal occular movement - ENT Positive: normal pinna, normal nares, normal mucosa, no hearing loss, no congestion - Neck Positive: no masses, no bruits, trachea midline, no venous distension - Respiratory Positive: normal expansion, normal respiratory effort, clear to auscultation - Cardiovascular Rhythm: regular Heart Sounds: Present: S1 & S2. Absent: rub, click - Extremities Extremities: no ischemia, pulses symmetrical, No edema - Breasts Breasts: normal, no mass, no skin changes - Abdomen Abdomen: Present: soft, bowel sounds normal. Absent: tender, distended Hernia: none - Genitourinary Male Genitourinary: normal Female Genitourinary: normal - Integumentary no rash, no growths, no abnormal pigmentation - Neurologic Neurologic: alert and oriented to time, place and person, motor strength and sensation are grossly intact - Musculoskeletal normal gait, normal posture - Psychiatric Psychiatric: appropriate mood/affect, intact judgment & insight Results - Labs 06/06/20 04:26 06/06/20 04:26 Abnormal lab results 06/05/20 06/05/20 06/05/20 Range/Units 16:38 16:38 16:38 WBC (4.5-11.0) K/mm3 Hct (30.3-42.9) % Lymph % (Auto) (13.4-35.0) % Lymph # (Auto) (1.2-5.4) K/mm3 Seg Neutrophils % (40.0-70.0) % Seg Neutrophils # (1.8-7.7) K/mm3 PT (12.2-14.9) Sec. D-Dimer (0-234) ng/mlDDU VBG pH 7.227 L (7.320-7.420) Sodium (137-145) mmol/L Chloride (98-107) mmol/L Carbon Dioxide (22-30) mmol/L BUN (7-17) mg/dL Creatinine (0.6-1.2) mg/dL Glucose (65-100) mg/dL POC Glucose (70-105) mg/dL Hemoglobin A1c (4-6) % Lactic Acid 2.60 H* (0.7-2.0) mmol/L Calcium (8.4-10.2) mg/dL Ferritin (10.0-200.0) ng/mL Alkaline Phosphatase (35-129) units/L Lactate Dehydrogenase (91-180) units/L Total Creatine Kinase 437 H (30-135) units/L C-Reactive Protein (0.00-1.30) mg/dL Urine WBC (Auto) (0.0-6.0) /HPF 06/05/20 06/05/20 06/05/20 Range/Units 16:38 16:38 16:38 WBC 12.2 H (4.5-11.0) K/mm3 Hct 44.5 H (30.3-42.9) % Lymph % (Auto) 10.0 L (13.4-35.0) % Lymph # (Auto) (1.2-5.4) K/mm3 Seg Neutrophils % 85.2 H (40.0-70.0) % Seg Neutrophils # 10.4 H (1.8-7.7) K/mm3 PT 12.1 L (12.2-14.9) Sec. D-Dimer (0-234) ng/mlDDU VBG pH (7.320-7.420) Sodium 129 L (137-145) mmol/L Chloride 97.5 L (98-107) mmol/L Carbon Dioxide 18 L (22-30) mmol/L BUN 36 H (7-17) mg/dL Creatinine 1.7 H (0.6-1.2) mg/dL Glucose 521 H* (65-100) mg/dL POC Glucose (70-105) mg/dL Hemoglobin A1c (4-6) % Lactic Acid (0.7-2.0) mmol/L Calcium (8.4-10.2) mg/dL Ferritin (10.0-200.0) ng/mL Alkaline Phosphatase 163 H (35-129) units/L Lactate Dehydrogenase (91-180) units/L Total Creatine Kinase (30-135) units/L C-Reactive Protein (0.00-1.30) mg/dL Urine WBC (Auto) (0.0-6.0) /HPF 06/05/20 06/05/20 06/05/20 Range/Units 16:38 17:27 17:48 WBC (4.5-11.0) K/mm3 Hct (30.3-42.9) % Lymph % (Auto) (13.4-35.0) % Lymph # (Auto) (1.2-5.4) K/mm3 Seg Neutrophils % (40.0-70.0) % Seg Neutrophils # (1.8-7.7) K/mm3 PT (12.2-14.9) Sec. D-Dimer (0-234) ng/mlDDU VBG pH (7.320-7.420) Sodium (137-145) mmol/L Chloride (98-107) mmol/L Carbon Dioxide (22-30) mmol/L BUN (7-17) mg/dL Creatinine (0.6-1.2) mg/dL Glucose (65-100) mg/dL POC Glucose 448 H (70-105) mg/dL Hemoglobin A1c 13.4 H (4-6) % Lactic Acid (0.7-2.0) mmol/L Calcium (8.4-10.2) mg/dL Ferritin (10.0-200.0) ng/mL Alkaline Phosphatase (35-129) units/L Lactate Dehydrogenase (91-180) units/L Total Creatine Kinase (30-135) units/L C-Reactive Protein (0.00-1.30) mg/dL Urine WBC (Auto) 42.0 H (0.0-6.0) /HPF 06/05/20 06/05/20 06/05/20 Range/Units 18:20 18:20 18:20 WBC (4.5-11.0) K/mm3 Hct (30.3-42.9) % Lymph % (Auto) (13.4-35.0) % Lymph # (Auto) (1.2-5.4) K/mm3 Seg Neutrophils % (40.0-70.0) % Seg Neutrophils # (1.8-7.7) K/mm3 PT (12.2-14.9) Sec. D-Dimer 1205.57 H (0-234) ng/mlDDU VBG pH (7.320-7.420) Sodium (137-145) mmol/L Chloride (98-107) mmol/L Carbon Dioxide (22-30) mmol/L BUN (7-17) mg/dL Creatinine (0.6-1.2) mg/dL Glucose 516 H* (65-100) mg/dL POC Glucose (70-105) mg/dL Hemoglobin A1c (4-6) % Lactic Acid (0.7-2.0) mmol/L Calcium (8.4-10.2) mg/dL Ferritin 255.9 H (10.0-200.0) ng/mL Alkaline Phosphatase (35-129) units/L Lactate Dehydrogenase 336 H (91-180) units/L Total Creatine Kinase (30-135) units/L C-Reactive Protein 4.90 H (0.00-1.30) mg/dL Urine WBC (Auto) (0.0-6.0) /HPF 06/05/20 06/05/20 06/06/20 Range/Units 19:09 21:25 04:26 WBC (4.5-11.0) K/mm3 Hct (30.3-42.9) % Lymph % (Auto) 9.4 L (13.4-35.0) % Lymph # (Auto) 1.0 L (1.2-5.4) K/mm3 Seg Neutrophils % 82.7 H (40.0-70.0) % Seg Neutrophils # 8.8 H (1.8-7.7) K/mm3 PT (12.2-14.9) Sec. D-Dimer (0-234) ng/mlDDU VBG pH (7.320-7.420) Sodium (137-145) mmol/L Chloride (98-107) mmol/L Carbon Dioxide (22-30) mmol/L BUN (7-17) mg/dL Creatinine (0.6-1.2) mg/dL Glucose (65-100) mg/dL POC Glucose 397 H 426 H (70-105) mg/dL Hemoglobin A1c (4-6) % Lactic Acid (0.7-2.0) mmol/L Calcium (8.4-10.2) mg/dL Ferritin (10.0-200.0) ng/mL Alkaline Phosphatase (35-129) units/L Lactate Dehydrogenase (91-180) units/L Total Creatine Kinase (30-135) units/L C-Reactive Protein (0.00-1.30) mg/dL Urine WBC (Auto) (0.0-6.0) /HPF 06/06/20 Range/Units 04:26 WBC (4.5-11.0) K/mm3 Hct (30.3-42.9) % Lymph % (Auto) (13.4-35.0) % Lymph # (Auto) (1.2-5.4) K/mm3 Seg Neutrophils % (40.0-70.0) % Seg Neutrophils # (1.8-7.7) K/mm3 PT (12.2-14.9) Sec. D-Dimer (0-234) ng/mlDDU VBG pH (7.320-7.420) Sodium (137-145) mmol/L Chloride 110.5 H (98-107) mmol/L Carbon Dioxide 20 L (22-30) mmol/L BUN 35 H (7-17) mg/dL Creatinine 1.3 H (0.6-1.2) mg/dL Glucose 340 H (65-100) mg/dL POC Glucose (70-105) mg/dL Hemoglobin A1c (4-6) % Lactic Acid (0.7-2.0) mmol/L Calcium 7.7 L (8.4-10.2) mg/dL Ferritin (10.0-200.0) ng/mL Alkaline Phosphatase (35-129) units/L Lactate Dehydrogenase (91-180) units/L Total Creatine Kinase (30-135) units/L C-Reactive Protein (0.00-1.30) mg/dL Urine WBC (Auto) (0.0-6.0) /HPF Diabetes panel 06/05/20 06/05/20 06/05/20 Range/Units 16:38 16:38 18:20 Sodium 129 L (137-145) mmol/L Potassium 4.7 (3.6-5.0) mmol/L Chloride 97.5 L (98-107) mmol/L Carbon Dioxide 18 L (22-30) mmol/L BUN 36 H (7-17) mg/dL Creatinine 1.7 H (0.6-1.2) mg/dL Glucose 521 H* 516 H* (65-100) mg/dL Hemoglobin A1c 13.4 H (4-6) % Calcium 8.9 (8.4-10.2) mg/dL AST 33 (5-40) units/L ALT 21 (7-56) units/L Alkaline Phosphatase 163 H (35-129) units/L Total Protein 7.5 (6.3-8.2) g/dL Albumin 4.0 (3.9-5) g/dL 06/06/20 Range/Units 04:26 Sodium 139 D (137-145) mmol/L Potassium 4.4 (3.6-5.0) mmol/L Chloride 110.5 H (98-107) mmol/L Carbon Dioxide 20 L (22-30) mmol/L BUN 35 H (7-17) mg/dL Creatinine 1.3 H (0.6-1.2) mg/dL Glucose 340 H (65-100) mg/dL Hemoglobin A1c (4-6) % Calcium 7.7 L (8.4-10.2) mg/dL AST (5-40) units/L ALT (7-56) units/L Alkaline Phosphatase (35-129) units/L Total Protein (6.3-8.2) g/dL Albumin (3.9-5) g/dL Calcium panel 06/05/20 06/06/20 Range/Units 16:38 04:26 Calcium 8.9 7.7 L (8.4-10.2) mg/dL Albumin 4.0 (3.9-5) g/dL Pituitary panel 06/05/20 06/05/20 06/06/20 Range/Units 16:38 18:20 04:26 Sodium 129 L 139 D (137-145) mmol/L Potassium 4.7 4.4 (3.6-5.0) mmol/L Chloride 97.5 L 110.5 H (98-107) mmol/L Carbon Dioxide 18 L 20 L (22-30) mmol/L BUN 36 H 35 H (7-17) mg/dL Creatinine 1.7 H 1.3 H (0.6-1.2) mg/dL Glucose 521 H* 516 H* 340 H (65-100) mg/dL Calcium 8.9 7.7 L (8.4-10.2) mg/dL Adrenal panel 06/05/20 06/05/20 06/06/20 Range/Units 16:38 18:20 04:26 Sodium 129 L 139 D (137-145) mmol/L Potassium 4.7 4.4 (3.6-5.0) mmol/L Chloride 97.5 L 110.5 H (98-107) mmol/L Carbon Dioxide 18 L 20 L (22-30) mmol/L BUN 36 H 35 H (7-17) mg/dL Creatinine 1.7 H 1.3 H (0.6-1.2) mg/dL Glucose 521 H* 516 H* 340 H (65-100) mg/dL Calcium 8.9 7.7 L (8.4-10.2) mg/dL Total Bilirubin 0.40 (0.1-1.2) mg/dL AST 33 (5-40) units/L ALT 21 (7-56) units/L Alkaline Phosphatase 163 H (35-129) units/L Total Protein 7.5 (6.3-8.2) g/dL Albumin 4.0 (3.9-5) g/dL - Imaging CT scan - abdomen: report reviewed CT scan - pelvis: report reviewed Additional studies: Today's AXR was also reviewed. NG output was 1,000 ml yesterday./ Assessment and Plan - Patient Problems (1) Small bowel obstruction Current Visit: Yes Status: Acute Plan to address problem: 1) Continue NG suction 2) AXR in the am 3) Strict management of DM
[2020-06-06] MEDS ORDERED: REMDESIVIR 200 MG in SODIUM CHLORIDE 0.9% 250ML 250 ML IV ONE (13:28)
[2020-06-06] MEDS ORDERED: REMDESIVIR 100 MG VIAL IV ONE (13:30)
--- NOTE | 2020-06-06 13:31 | Consultation ---
History of Present Illness - Reason for Consult Consult date: 06/06/20 COVID-19 Requesting physician: JOHN GROSS - History of Present Illness 64-year-old female with diabetes mellitus admitted to the hospital with nausea, vomiting and abdominal pain. Upon evaluation in the ER, she was noted to have elevated lactate, hyperglycemia and acute kidney injury. CT abdomen and pelvis revealed low-grade partial small bowel obstruction. Patient tested positive for COVID-19. Infectious diseases was consulted for additional evaluation. She has been seen by general surgery and is being managed conservatively with NG suction. She is otherwise afebrile. She is saturating 92% on supplemental oxygen. Review of Systems: reviewed in the chart, unable to obtain, minimize risk of transmission Past History Past Medical History: diabetes Past Surgical History: cholecystectomy Social history: no significant social history Family history: no significant family history Medications and Allergies Allergies Allergy/AdvReac Type Severity Reaction Status Date / Time sunflower seed Allergy Anaphylaxis Verified 06/05/20 16:53 Home Medications Medication Instructions Recorded Confirmed Last Taken Type No Known Home Medications [No 06/06/20 06/06/20 Unknown History Reported Home Medications] Active Meds: Active Medications Acetaminophen (Acetaminophen 325 Mg Tab) 650 mg PO Q4H PRN PRN Reason: Pain MILD(1-3)/Fever >100.5/AHN Dexamethasone (Dexamethasone 4 Mg/Ml Vial) 6 mg IV DAILY BRIAN Stop: 06/16/20 13:59 Dextrose (Dextrose 50% In Water (25gm) 50 Ml Syringe) 50 ml IV Q30MIN PRN; Protocol PRN Reason: Hypoglycemia Sodium Chloride (Nacl 0.9% 1000 Ml) 1,000 mls @ 150 mls/hr IV DIRECT BRIAN Last Admin: 06/06/20 12:47 Dose: 150 mls/hr Documented by: Ceftriaxone Sodium (Rocephin/Ns 2 Gm/100 Ml) 2 gm in 100 mls @ 200 mls/hr IV Q24H BRIAN; Protocol Last Admin: 06/06/20 05:00 Dose: 200 mls/hr Documented by: REMDESIVIR 200 mg/ Sodium (Chloride) 250 mls @ 500 mls/hr IV ONCE ONE Stop: 06/06/20 13:57 REMDESIVIR 100 mg/ Sodium (Chloride) 250 mls @ 500 mls/hr IV Q24HR@2100 BRIAN Stop: 06/10/20 21:29 Insulin Glargine (Insulin Glargine 100 Units/Ml) 20 units SUB-Q QAMDIAB [facility] Last Admin: 06/06/20 08:00 Dose: Not Given Documented by: Insulin Human Lispro (Insulin Lispro 100 Unit/Ml) 0 unit SUB-Q ACHS [facility]; Protocol Last Admin: 06/06/20 11:30 Dose: 3 unit Documented by: Insulin Human Lispro (Insulin Lispro 100 Unit/Ml) 10 unit SUB-Q AC [facility] Last Admin: 06/06/20 11:30 Dose: 10 unit Documented by: Morphine Sulfate (Morphine 2 Mg/1 Ml Inj) 2 mg IV Q4H PRN PRN Reason: Pain, Moderate (4-6) Ondansetron HCl (Ondansetron 4 Mg/2 Ml Inj) 4 mg IV Q8H PRN PRN Reason: Nausea And Vomiting Sodium Chloride (Sodium Chloride 0.9% 10 Ml Flush Syringe) 10 ml IV BID [facility] Last Admin: 06/06/20 10:05 Dose: 10 ml Documented by: Sodium Chloride (Sodium Chloride 0.9% 10 Ml Flush Syringe) 10 ml IV PRN PRN PRN Reason: LINE FLUSH Sodium Chloride (Sodium Chloride 0.9% 50 Ml Ivpb) 50 ml IV Q24HR@2100 [facility] Stop: 06/10/20 21:01 Physical Examination - Physical Exam Narrative exam: Physical Exam (reviewed in chart to minimize risk of transmission) Constitutional: deferred Head, Ears, Nose: deferred Eyes: deferred Neck: deferred Oral: deferred Cardiovascular: deferred Respiratory: deferred GI: deferred Musculoskeletal: deferred Skin: deferred Hem/Lymphatic: deferred Psych: deferred Neurological: deferred - Constitutional Vitals: Vital Signs Temp Pulse Resp BP Pulse Ox 99.0 F 108 H 22 126/60 92 06/06/20 04:46 06/06/20 04:46 06/06/20 04:46 06/06/20 04:46 06/06/20 04:46 Temperature -Last 24 Hours Temperature 99.0 F Temperature 97.1 F Results - Labs CBC & Chem 7: 06/06/20 04:26 06/06/20 04:26 Labs: Abnormal lab results 06/05/20 06/05/20 06/05/20 Range/Units 16:38 16:38 16:38 WBC (4.5-11.0) K/mm3 Hct (30.3-42.9) % Lymph % (Auto) (13.4-35.0) % Lymph # (Auto) (1.2-5.4) K/mm3 Seg Neutrophils % (40.0-70.0) % Seg Neutrophils # (1.8-7.7) K/mm3 PT (12.2-14.9) Sec. D-Dimer (0-234) ng/mlDDU VBG pH 7.227 L (7.320-7.420) Sodium (137-145) mmol/L Chloride (98-107) mmol/L Carbon Dioxide (22-30) mmol/L BUN (7-17) mg/dL Creatinine (0.6-1.2) mg/dL Glucose (65-100) mg/dL POC Glucose (70-105) mg/dL Hemoglobin A1c (4-6) % Lactic Acid 2.60 H* (0.7-2.0) mmol/L Calcium (8.4-10.2) mg/dL Ferritin (10.0-200.0) ng/mL Alkaline Phosphatase (35-129) units/L Lactate Dehydrogenase (91-180) units/L Total Creatine Kinase 437 H (30-135) units/L C-Reactive Protein (0.00-1.30) mg/dL Urine WBC (Auto) (0.0-6.0) /HPF Coronavirus (PCR) (Negative) 06/05/20 06/05/20 06/05/20 Range/Units 16:38 16:38 16:38 WBC 12.2 H (4.5-11.0) K/mm3 Hct 44.5 H (30.3-42.9) % Lymph % (Auto) 10.0 L (13.4-35.0) % Lymph # (Auto) (1.2-5.4) K/mm3 Seg Neutrophils % 85.2 H (40.0-70.0) % Seg Neutrophils # 10.4 H (1.8-7.7) K/mm3 PT 12.1 L (12.2-14.9) Sec. D-Dimer (0-234) ng/mlDDU VBG pH (7.320-7.420) Sodium 129 L (137-145) mmol/L Chloride 97.5 L (98-107) mmol/L Carbon Dioxide 18 L (22-30) mmol/L BUN 36 H (7-17) mg/dL Creatinine 1.7 H (0.6-1.2) mg/dL Glucose 521 H* (65-100) mg/dL POC Glucose (70-105) mg/dL Hemoglobin A1c (4-6) % Lactic Acid (0.7-2.0) mmol/L Calcium (8.4-10.2) mg/dL Ferritin (10.0-200.0) ng/mL Alkaline Phosphatase 163 H (35-129) units/L Lactate Dehydrogenase (91-180) units/L Total Creatine Kinase (30-135) units/L C-Reactive Protein (0.00-1.30) mg/dL Urine WBC (Auto) (0.0-6.0) /HPF Coronavirus (PCR) (Negative) 06/05/20 06/05/20 06/05/20 Range/Units 16:38 17:27 17:48 WBC (4.5-11.0) K/mm3 Hct (30.3-42.9) % Lymph % (Auto) (13.4-35.0) % Lymph # (Auto) (1.2-5.4) K/mm3 Seg Neutrophils % (40.0-70.0) % Seg Neutrophils # (1.8-7.7) K/mm3 PT (12.2-14.9) Sec. D-Dimer (0-234) ng/mlDDU VBG pH (7.320-7.420) Sodium (137-145) mmol/L Chloride (98-107) mmol/L Carbon Dioxide (22-30) mmol/L BUN (7-17) mg/dL Creatinine (0.6-1.2) mg/dL Glucose (65-100) mg/dL POC Glucose 448 H (70-105) mg/dL Hemoglobin A1c 13.4 H (4-6) % Lactic Acid (0.7-2.0) mmol/L Calcium (8.4-10.2) mg/dL Ferritin (10.0-200.0) ng/mL Alkaline Phosphatase (35-129) units/L Lactate Dehydrogenase (91-180) units/L Total Creatine Kinase (30-135) units/L C-Reactive Protein (0.00-1.30) mg/dL Urine WBC (Auto) 42.0 H (0.0-6.0) /HPF Coronavirus (PCR) (Negative) 06/05/20 06/05/20 06/05/20 Range/Units 18:20 18:20 18:20 WBC (4.5-11.0) K/mm3 Hct (30.3-42.9) % Lymph % (Auto) (13.4-35.0) % Lymph # (Auto) (1.2-5.4) K/mm3 Seg Neutrophils % (40.0-70.0) % Seg Neutrophils # (1.8-7.7) K/mm3 PT (12.2-14.9) Sec. D-Dimer 1205.57 H (0-234) ng/mlDDU VBG pH (7.320-7.420) Sodium (137-145) mmol/L Chloride (98-107) mmol/L Carbon Dioxide (22-30) mmol/L BUN (7-17) mg/dL Creatinine (0.6-1.2) mg/dL Glucose 516 H* (65-100) mg/dL POC Glucose (70-105) mg/dL Hemoglobin A1c (4-6) % Lactic Acid (0.7-2.0) mmol/L Calcium (8.4-10.2) mg/dL Ferritin 255.9 H (10.0-200.0) ng/mL Alkaline Phosphatase (35-129) units/L Lactate Dehydrogenase 336 H (91-180) units/L Total Creatine Kinase (30-135) units/L C-Reactive Protein 4.90 H (0.00-1.30) mg/dL Urine WBC (Auto) (0.0-6.0) /HPF Coronavirus (PCR) (Negative) 06/05/20 06/05/20 06/06/20 Range/Units 19:09 21:25 04:26 WBC (4.5-11.0) K/mm3 Hct (30.3-42.9) % Lymph % (Auto) 9.4 L (13.4-35.0) % Lymph # (Auto) 1.0 L (1.2-5.4) K/mm3 Seg Neutrophils % 82.7 H (40.0-70.0) % Seg Neutrophils # 8.8 H (1.8-7.7) K/mm3 PT (12.2-14.9) Sec. D-Dimer (0-234) ng/mlDDU VBG pH (7.320-7.420) Sodium (137-145) mmol/L Chloride (98-107) mmol/L Carbon Dioxide (22-30) mmol/L BUN (7-17) mg/dL Creatinine (0.6-1.2) mg/dL Glucose (65-100) mg/dL POC Glucose 397 H 426 H (70-105) mg/dL Hemoglobin A1c (4-6) % Lactic Acid (0.7-2.0) mmol/L Calcium (8.4-10.2) mg/dL Ferritin (10.0-200.0) ng/mL Alkaline Phosphatase (35-129) units/L Lactate Dehydrogenase (91-180) units/L Total Creatine Kinase (30-135) units/L C-Reactive Protein (0.00-1.30) mg/dL Urine WBC (Auto) (0.0-6.0) /HPF Coronavirus (PCR) (Negative) 06/06/20 06/06/20 06/06/20 Range/Units 04:26 11:13 Unknown WBC (4.5-11.0) K/mm3 Hct (30.3-42.9) % Lymph % (Auto) (13.4-35.0) % Lymph # (Auto) (1.2-5.4) K/mm3 Seg Neutrophils % (40.0-70.0) % Seg Neutrophils # (1.8-7.7) K/mm3 PT (12.2-14.9) Sec. D-Dimer (0-234) ng/mlDDU VBG pH (7.320-7.420) Sodium (137-145) mmol/L Chloride 110.5 H (98-107) mmol/L Carbon Dioxide 20 L (22-30) mmol/L BUN 35 H (7-17) mg/dL Creatinine 1.3 H (0.6-1.2) mg/dL Glucose 340 H (65-100) mg/dL POC Glucose 217 H (70-105) mg/dL Hemoglobin A1c (4-6) % Lactic Acid (0.7-2.0) mmol/L Calcium 7.7 L (8.4-10.2) mg/dL Ferritin (10.0-200.0) ng/mL Alkaline Phosphatase (35-129) units/L Lactate Dehydrogenase (91-180) units/L Total Creatine Kinase (30-135) units/L C-Reactive Protein (0.00-1.30) mg/dL Urine WBC (Auto) (0.0-6.0) /HPF Coronavirus (PCR) Positive A (Negative) - Imaging and Cardiology Chest x-ray: report reviewed, image reviewed CT scan - abdomen: report reviewed, image reviewed (patchy airspace disease) Assessment and Plan Cultures: SARS CoV2 PCR: Positive 06/05/2020 blood culture: No growth thus far A/P: 64/F with DM admitted with: #Bilateral pneumonia: Secondary to COVID-19. #Acute hypoxic respiratory failure: On supplemental oxygen, saturating 92% on 3 L by nasal cannula. #DM, uncontrolled #Partial SBO: On NG suction. General surgery following. #Acute kidney injury: Creatinine improving #Possible UTI Recs: -IV/PO Dexamethasone 6 mg daily x 10 days -IV remdesivir for 5 days -Continue empiric ceftriaxone for 3 days -prophylactic anticoagulation based on d-dimer per hospital protocol -trend ferritin, LDH, d-dimer, CRP every 2-3 days for risk stratification and to assess disease progression Jessica Silva MD, FACP [facility] ([facility] O: [phone] F: [phone]
[2020-06-06] MEDS: dexAMETHasone 4 MG/ML VIAL IV SCH (14:00)
[2020-06-06] MEDS: SODIUM CHLORIDE 0.9% 50 ML IVPB IV SCH ×2 (15:05→21:31)
[2020-06-07] MEDS: cefTRIAXone/NS 2 GM/100 ML 2 GM/100 ML BAG IV SCH (05:07)
[2020-06-07 06:54] LABS: Alanine Aminotransferase 12 units/L (7-56); Albumin 2.9 g/dL (3.9-5); BUN/Creatinine Ratio 32; Blood Urea Nitrogen 32 mg/dL (7-17); Calcium 8.2 mg/dL (8.4-10.2); Hemolysis Index 37
--- NOTE | 2020-06-07 07:42 | Progress Note ---
Assessment and Plan Assessment and plan: (1) Small bowel obstruction Current Visit: Yes Status: Acute Plan to address problem: Patient has been made n.p.o. and NG tube has also been placed. We will follow general surgery recommendation (2) Hyperglycemia Current Visit: Yes Status: Acute Plan to address problem: We will monitor Accu-Cheks for good glycemic control. Will check hemoglobin A1c. Dietary consult placed. (3) Metabolic acidosis Current Visit: Yes Status: Acute Plan to address problem: Possibly secondary to the intractable nausea and vomiting with accompanying hypoglycemia. We will continue on IV fluid and monitor chemistry. (4) Renal insufficiency Current Visit: Yes Status: Acute Plan to address problem: Possibly secondary to volume loss. We will continue IV fluid hydration. Baseline creatinine unknown. We will place consult to nephrology for evaluation and recommendation. (5) Suspected 2019 novel coronavirus infection Current Visit: Yes Status: Acute Plan to address problem: Patient placed on isolation precautions. Consult placed to infectious disease for evaluation. We will await COVID-19 testing. (6) UTI (urinary tract infection) Current Visit: Yes Status: Acute Plan to address problem: We will continue on empiric IV antibiotics. We will await urine culture result. (7) DVT prophylaxis Current Visit: Yes Status: Acute Plan to address problem: Patient placed on sequential compression device. We will hold anticoagulation in view of possible surgical intervention-for small bowel obstruction. (8) Full code status Current Visit: Yes Status: Acute Plan to address problem: Patient is a full code. 06/06/2020 -Patient has NG tube in place, Dr. Moya consulted and follow recommendation for removal of NG tube. Minimal output from the NG tube, no abdominal pain. Continue with IV fluids. Chest x-ray ordered. -Patient's hemoglobin A1c is 13.2, I added Lantus 20 units every morning, 10 units at bedtime Humalog, continue sliding scale insulin. Monitor blood sugar and adjust insulin as needed. Recent blood sugar is 349. Metabolic acidosis resolved. -BUN/creatinine is improving -COVID-19 test is pending -Patient is on IV antibiotics for UTI, urine culture Disposition; per clinical Course 06/07/2020 -Patient has NG tube in place, Dr. Moya consulted and follow recommendation for removal of NG tube. Minimal output from the NG tube, no abdominal pain. Continue with IV fluids. Discussed with Dr. Moya and his stated he will repe at [facility] today and if there is improvement he will take out the NG tube -Patient's hemoglobin A1c is 13.2, blood sugar is uncontrolled and I increased Lantus to 30 units and Humalog AC to 12 units. -BUN/creatinine is improving -COVID-19 test is positive; ID consulted and put the patient on Decadron and remdesivir. Inflammatory markers ordered we will follow -Patient is on IV antibiotics for UTI, urine culture Disposition; per clinical Course Management plan was discussed with her Sister Asia over the phone. [phone]. History Interval history: Patient was seen and evaluated this morning Patient has NG tube in place, minimal output Patient said abdominal pain is getting better Hospitalist Physical - Physical exam Narrative exam: Not in cardiopulmonary distress. The patient appeared well nourished and normally developed. Vital signs as documented. Head exam is unremarkable. No scleral icterus . Neck is without jugular venous distension, thyromegaly, or carotid bruits. Lungs are clear to auscultation. Cardiac exam reveals regular rate and Rhythm. Abdominal exam reveals normal bowel sounds, nontender, no organomegaly. Extremities are nonedematous and both femoral and pedal pulses are normal. WAREHOUSE SPECIALIST: Alert and oriented 3. No focal weakness. - Constitutional Vitals: Temp Pulse Resp BP Pulse Ox 99.3 F 109 H 20 158/89 94 06/07/20 04:40 06/07/20 04:40 06/07/20 04:40 06/07/20 04:40 06/07/20 04:40 General appearance: Present: no acute distress, well-nourished, other (Ill- looking) Results - Labs CBC & Chem 7: 06/06/20 04:26 06/07/20 04:18 Labs: Laboratory Last Values WBC 10.6 K/mm3 (4.5-11.0) 06/06/20 04:26 RBC 3.93 M/mm3 (3.65-5.03) 06/06/20 04:26 Hgb 11.5 gm/dl (10.1-14.3) 06/06/20 04:26 Hct 34.1 % (30.3-42.9) D 06/06/20 04:26 MCV 87 fl (79-97) 06/06/20 04:26 MCH 29 pg (28-32) 06/06/20 04:26 MCHC 34 % (30-34) 06/06/20 04:26 RDW 13.9 % (13.2-15.2) 06/06/20 04:26 Plt Count 179 K/mm3 (140-440) 06/06/20 04:26 Lymph % (Auto) 9.4 % (13.4-35.0) L 06/06/20 04:26 Person % (Auto) 7.2 % (0.0-7.3) 06/06/20 04:26 Eos % (Auto) 0.6 % (0.0-4.3) 06/06/20 04:26 Baso % (Auto) 0.1 % (0.0-1.8) 06/06/20 04:26 Lymph # (Auto) 1.0 K/mm3 (1.2-5.4) L 06/06/20 04:26 Person # (Auto) 0.8 K/mm3 (0.0-0.8) 06/06/20 04:26 Eos # (Auto) 0.1 K/mm3 (0.0-0.4) 06/06/20 04:26 Baso # (Auto) 0.0 K/mm3 (0.0-0.1) 06/06/20 04:26 Seg Neutrophils % 82.7 % (40.0-70.0) H 06/06/20 04:26 Seg Neutrophils # 8.8 K/mm3 (1.8-7.7) H 06/06/20 04:26 PT 13.7 Sec. (12.2-14.9) 06/06/20 04:26 INR 1.07 (0.87-1.13) 06/06/20 04:26 D-Dimer 1205.57 ng/mlDDU (0-234) H 06/05/20 18:20 VBG pH 7.227 (7.320-7.420) L 06/05/20 16:38 Sodium 144 mmol/L (137-145) 06/07/20 04:18 Potassium 4.6 mmol/L (3.6-5.0) 06/07/20 04:18 Chloride 115.8 mmol/L (98-107) H 06/07/20 04:18 Carbon Dioxide 15 mmol/L (22-30) L 06/07/20 04:18 Anion Gap 18 mmol/L 06/07/20 04:18 BUN 32 mg/dL (7-17) H 06/07/20 04:18 Creatinine 1.0 mg/dL (0.6-1.2) 06/07/20 04:18 Estimated GFR 56 ml/min 06/07/20 04:18 BUN/Creatinine Ratio 32 % 06/07/20 04:18 Glucose 242 mg/dL (65-100) H 06/07/20 04:18 POC Glucose 255 mg/dL (70-105) H 06/06/20 21:21 Hemoglobin A1c 13.4 % (4-6) H 06/05/20 16:38 Lactic Acid 2.60 mmol/L (0.7-2.0) H* 06/05/20 16:38 Calcium 8.2 mg/dL (8.4-10.2) L 06/07/20 04:18 Magnesium 2.00 mg/dL (1.7-2.3) 06/05/20 16:38 Ferritin 255.9 ng/mL (10.0-200.0) H 06/05/20 18:20 Total Bilirubin < 0.20 mg/dL (0.1-1.2) 06/07/20 04:18 Direct Bilirubin < 0.2 mg/dL (0-0.2) 06/05/20 16:38 AST 19 units/L (5-40) 06/07/20 04:18 ALT 12 units/L (7-56) 06/07/20 04:18 Alkaline Phosphatase 109 units/L (35-129) 06/07/20 04:18 Lactate Dehydrogenase 336 units/L (91-180) H 06/05/20 18:20 Total Creatine Kinase 437 units/L (30-135) H 06/05/20 16:38 C-Reactive Protein 4.90 mg/dL (0.00-1.30) H 06/05/20 18:20 Total Protein 6.5 g/dL (6.3-8.2) 06/07/20 04:18 Albumin 2.9 g/dL (3.9-5) L 06/07/20 04:18 Albumin/Globulin Ratio 0.8 % 06/07/20 04:18 Lipase 49 units/L (13-60) 06/05/20 16:38 Procalcitonin 0.30 ng/mL (<0.15) 06/05/20 18:20 Urine Color Yellow (Yellow) 06/05/20 17:27 Urine Turbidity Cloudy (Clear) 06/05/20 17:27 Urine pH 5.0 (5.0-7.0) 06/05/20 17:27 Ur Specific [place] 1.016 (1.003-1.030) 06/05/20 17:27 Urine Protein >500 mg/dL (Negative) 06/05/20 17:27 Urine Glucose (UA) >=500 mg/dL (Negative) 06/05/20 17:27 Urine Ketones Neg mg/dL (Negative) 06/05/20 17:27 Urine Blood Sm (Negative) 06/05/20 17:27 Urine Nitrite Neg (Negative) 06/05/20 17:27 Urine Bilirubin Neg (Negative) 06/05/20 17:27 Urine Urobilinogen < 2.0 mg/dL (<2.0) 06/05/20 17:27 Ur Leukocyte Esterase Sm (Negative) 06/05/20 17:27 Urine WBC (Auto) 42.0 /HPF (0.0-6.0) H 06/05/20 17:27 Urine RBC (Auto) 5.0 /HPF (0.0-6.0) 06/05/20 17:27 U Epithel Cells (Auto) 1.0 /HPF (0-13.0) 06/05/20 17:27 Urine Bacteria (Auto) 3+ /HPF (Negative) 06/05/20 17:27 Urine WBC Clumps 2+ /HPF 06/05/20 17:27 Urine Mucus Few /HPF 06/05/20 17:27 Urine Yeast (Budding) 3+ /HPF 06/05/20 17:27 Coronavirus (PCR) Positive (Negative) A 06/06/20 Unknown Microbiology: Microbiology 06/05/20 18:20 Peripheral/Venous Blood Culture - Preliminary NO GROWTH AFTER 24 HOURS 06/05/20 18:31 Peripheral/Venous Blood Culture - Preliminary NO GROWTH AFTER 24 HOURS Ritchie/IV: Voiding Method Indwelling Catheter IV Catheter Type [Right INT / Saline Lock Antecubital] Active Medications - Current Medications Current Medications: Generic Name Dose Route Start Last Admin Trade Name Freq PRN Reason Stop Dose Admin Acetaminophen 650 mg 06/05/20 18:34 Acetaminophen 325 Mg Tab PO Q4H PRN Pain MILD(1-3)/Fever >100.5/AHN Dexamethasone 6 mg 06/06/20 14:00 06/06/20 14:00 Dexamethasone 4 Mg/Ml Vial IV 06/16/20 13:59 6 mg DAILY BRIAN Administration Dextrose 50 ml 06/05/20 18:34 Dextrose 50% In Water (25gm) 50 Ml Syringe IV Q30MIN PRN Hypoglycemia Protocol Sodium Chloride 1,000 mls @ 150 mls/hr 06/05/20 18:45 06/06/20 21:33 Nacl 0.9% 1000 Ml IV 150 mls/hr DIRECT BRIAN Administration Ceftriaxone Sodium 2 gm in 100 mls @ 200 mls/hr 06/06/20 06:00 06/07/20 05:07 Rocephin/Ns 2 Gm/100 Ml IV 200 mls/hr Q24H BRIAN Administration Protocol REMDESIVIR 100 mg/ Sodium 250 mls @ 500 mls/hr 06/07/20 21:00 Chloride IV 06/10/20 21:29 Q24HR@2100 [facility] Insulin Glargine 30 units 06/07/20 07:38 Insulin Glargine 100 Units/Ml SUB-Q QAMDIAB [facility] Insulin Human Lispro 0 unit 06/05/20 22:00 06/06/20 21:32 Insulin Lispro 100 Unit/Ml SUB-Q 3 unit ACHS BRIAN Administration Protocol Insulin Human Lispro 12 unit 06/07/20 07:39 Insulin Lispro 100 Unit/Ml SUB-Q AC [facility] Morphine Sulfate 2 mg 06/05/20 18:34 Morphine 2 Mg/1 Ml Inj IV Q4H PRN Pain, Moderate (4-6) Ondansetron HCl 4 mg 06/05/20 18:34 Ondansetron 4 Mg/2 Ml Inj IV Q8H PRN Nausea And Vomiting Sodium Chloride 10 ml 06/05/20 22:00 06/06/20 21:32 Sodium Chloride 0.9% 10 Ml Flush Syringe IV 10 ml BID BRIAN Administration Sodium Chloride 10 ml 06/05/20 18:34 Sodium Chloride 0.9% 10 Ml Flush Syringe IV PRN PRN LINE FLUSH Sodium Chloride 50 ml 06/06/20 21:00 06/06/20 21:31 Sodium Chloride 0.9% 50 Ml Ivpb IV 06/10/20 21:01 Not Given Q24HR@2100 [facility] Nutrition/Malnutrition Assess - Dietary Evaluation Nutrition/Malnutrition Findings: Nutrition Notes Start: 06/06/20 11:21 Freq: Status: Active Protocol: Document 06/06/20 11:22 LM (Rec: 06/06/20 11:34 LM [id number]) Nutrition Notes Need for Assessment generated from: MD Order,Education Initial or Follow up Assessment Current Diagnosis Small Bowel Obstruction Other Pertinent Diagnosis Suspected COVID-19, UTI, Abdominal pain, renal insufficiency Current Diet NPO Labs/Tests BUN 35 Cr 1.3 BG 340 Pertinent Medications Humalog NS at 150ml/hr Height 5 ft Weight 78 kg [place] Body Weight (kg) 45.45 BMI 33.5 Weight Status Obese Subjective/Other Information MD consult for DM diet education. Pt is on contact precaution for COVID-19 and speaks Burkinan. Spoke with pt' s daughter over the phone and sent education materials to daughter. Daughter states pt has not had DM education in the past. Pt has NGT to LIS. Burn Absent Trauma Absent GI Symptoms Other Current % PO Negligible Minimum of two criteria No physical signs of malnutrition #2 Nutrition Diagnosis Food and nutrition-related knowledge deficit Etiology No prior DM diet education As Evidenced by Signs and Symptoms BG 340 #1 Nutrition Diagnosis Inadequate oral intake Etiology SBO As Evidenced by Signs and Symptoms Pt NPO Is patient on ventilator? No Is Patient Ambulatory and/or Out of Bed No REE-([facility]-confined to bed) [phone] Calculation Used for Recommendations [facility] Additional Notes Protein: 50-74g (0.8-1.2g/kg using AdjBW of 62 kg) Fluid: 1ml/kcal or per MD Nutrition Intervention Change Diet Order: Diet advancement when medically feasible Teaching Recipient Family Learning Readiness Fair Teaching Methods Handout Education Handouts Provided Carbohydrate Counting for People with DM Barriers to Learning Cognitive/Verbal,Language RD phone number provided Yes Patient aware of follow up options Yes Goal #1 Diet advancement Anticipated Discharge Needs: Unable to determine at this time Follow-Up By: 06/09/20 Additional Comments F/U for diet advancement, POC, BG
[2020-06-07] MEDS: INSULIN LISPRO 100 UNIT/ML SUB-Q SCH ×7 (08:20→21:27)
--- NOTE | 2020-06-07 08:54 | Progress Note ---
Assessment and Plan (1) Small bowel obstruction (2) Hyperglycemia (3) Metabolic acidosis (4) Renal insufficiency (5) Suspected 2019 novel coronavirus infection (6) UTI (urinary tract infection) ANDRE resolved no hydronephrosis on CT AP cont NS, no pulm edema on CXR renally dose meds strict I&O daily weights will sign off. Please reconsult if needed Subjective Date of service: 06/07/20 Principal diagnosis: ANDRE Interval history: more comfortable this AM Objective - Vital Signs Vital signs: Vital Signs - 12hr 06/06/20 06/07/20 21:48 04:40 Temperature 98.9 F 99.3 F Pulse Rate 111 H 109 H Respiratory 16 20 Rate Blood Pressure 160/84 158/89 O2 Sat by Pulse 93 94 Oximetry - Lab 06/06/20 04:26 06/07/20 04:18 Most recent lab results Calcium 8.2 mg/dL (8.4-10.2) L 06/07/20 04:18 Magnesium 2.00 mg/dL (1.7-2.3) 06/05/20 16:38 Medications & Allergies - Medications Allergies/Adverse Reactions: Allergies sunflower seed Allergy (Verified 06/05/20 16:53) Anaphylaxis Home Medications: Home Medications Medication Instructions Recorded Confirmed Last Taken Type No Known Home Medications [No 06/06/20 06/06/20 Unknown History Reported Home Medications] Active Medications: Generic Name Dose Route Start Last Admin Trade Name Freq PRN Reason Stop Dose Admin Acetaminophen 650 mg 06/05/20 18:34 Acetaminophen 325 Mg Tab PO Q4H PRN Pain MILD(1-3)/Fever >100.5/AHN Dexamethasone 6 mg 06/06/20 14:00 06/06/20 14:00 Dexamethasone 4 Mg/Ml Vial IV 06/16/20 13:59 6 mg DAILY BRIAN Administration Dextrose 50 ml 06/05/20 18:34 Dextrose 50% In Water (25gm) 50 Ml Syringe IV Q30MIN PRN Hypoglycemia Protocol Sodium Chloride 1,000 mls @ 150 mls/hr 06/05/20 18:45 06/06/20 21:33 Nacl 0.9% 1000 Ml IV 150 mls/hr DIRECT BRIAN Administration Ceftriaxone Sodium 2 gm in 100 mls @ 200 mls/hr 06/06/20 06:00 06/07/20 05:07 Rocephin/Ns 2 Gm/100 Ml IV 200 mls/hr Q24H [facility] Administration Protocol REMDESIVIR 100 mg/ Sodium 250 mls @ 500 mls/hr 06/07/20 21:00 Chloride IV 06/10/20 21:29 Q24HR@2100 [facility] Insulin Glargine 30 units 06/07/20 08:00 Insulin Glargine 100 Units/Ml SUB-Q QAMDIAB [facility] Insulin Human Lispro 0 unit 06/05/20 22:00 06/07/20 08:20 Insulin Lispro 100 Unit/Ml SUB-Q 3 unit ACHS [facility] Administration Protocol Insulin Human Lispro 12 unit 06/07/20 07:39 Insulin Lispro 100 Unit/Ml SUB-Q AC [facility] Morphine Sulfate 2 mg 06/05/20 18:34 Morphine 2 Mg/1 Ml Inj IV Q4H PRN Pain, Moderate (4-6) Ondansetron HCl 4 mg 06/05/20 18:34 Ondansetron 4 Mg/2 Ml Inj IV Q8H PRN Nausea And Vomiting Sodium Chloride 10 ml 06/05/20 22:00 06/06/20 21:32 Sodium Chloride 0.9% 10 Ml Flush Syringe IV 10 ml BID BRIAN Administration Sodium Chloride 10 ml 06/05/20 18:34 Sodium Chloride 0.9% 10 Ml Flush Syringe IV PRN PRN LINE FLUSH Sodium Chloride 50 ml 06/06/20 21:00 06/06/20 21:31 Sodium Chloride 0.9% 50 Ml Ivpb IV 06/10/20 21:01 Not Given Q24HR@2100 [facility]
--- NOTE | 2020-06-07 08:56 | XRay Report ---
ABDOMEN 1 VIEW INDICATION / CLINICAL INFORMATION: PSBO. COMPARISON: 06/06/2020. FINDINGS: TUBES / LINES: Unchanged. BOWEL GAS PATTERN: No significant abnormality. FREE AIR / EXTRALUMINAL GAS: None seen. ADDITIONAL FINDINGS: No significant additional findings. IMPRESSION: 1. No significant abnormality. Nonobstructive bowel gas pattern. Signer Name: Tobi Milner MD Signed: 06/07/2020 8:52 AM Workstation Name: [id number]
[2020-06-07] MEDS: INSULIN GLARGINE 100 UNITS/ML SUB-Q SCH (10:38)
[2020-06-07] MEDS: dexAMETHasone 4 MG/ML VIAL IV SCH (10:57)
[2020-06-07] MEDS: ENOXAPARIN 40 MG/0.4 ML INJ SUB-Q SCH ×2 (15:01→21:27)
--- NOTE | 2020-06-07 16:05 | Cat Scan Report ---
CT angio chest INDICATION / CLINICAL INFORMATION: covid, elevated d-dimer. TECHNIQUE: Axial CT images were obtained after injection of 100 cc of Omnipaque 350 IV contrast using CTA protoc ol. 3 plane MIP / 3D reconstructions were produced. All CT scans at this location are performed using CT dose reduction for ALARA by means of automated exposure control. COMPARISON: None available. FINDINGS: Following the injection of intravenous contrast, no filling defects are seen in the main pulmonary ar teries or their branches. Patchy peripheral airspace disease is seen in both lower lungs. No enlarged mediastinal or hilar lymph nodes are identified. No significant skeletal abnormality is seen. IMPRESSION: 1. No evidence of pulmonary embolus 2. Patchy peripheral airspace disease in both lower lungs consistent with atypical or viral pneumonia Signer Name: Woo Milner MD FACR Signed: 06/07/2020 4:01 PM Workstation Name: [id number]
--- NOTE | 2020-06-07 17:18 | Progress Note ---
Assessment and Plan - Patient Problems (1) Small bowel obstruction Current Visit: Yes Status: Acute Plan to address problem: 1) DC NG 2) Diabetic CLD 3) AXR in the am Subjective Date of service: 06/07/20 Patient Reports: Positive: no new complaints, feels better, flatus Objective - Abdomen PM_46_EXABD1 4, PM_46_EXABD1 6, PM_46_EXABD1 8 Hernia: none - Labs 06/06/20 04:26 06/07/20 04:18 Diabetes panel 06/07/20 Range/Units 04:18 Sodium 144 (137-145) mmol/L Potassium 4.6 (3.6-5.0) mmol/L Chloride 115.8 H (98-107) mmol/L Carbon Dioxide 15 L (22-30) mmol/L BUN 32 H (7-17) mg/dL Creatinine 1.0 (0.6-1.2) mg/dL Glucose 242 H (65-100) mg/dL Calcium 8.2 L (8.4-10.2) mg/dL AST 19 (5-40) units/L ALT 12 (7-56) units/L Alkaline Phosphatase 109 (35-129) units/L Total Protein 6.5 (6.3-8.2) g/dL Albumin 2.9 L (3.9-5) g/dL Calcium panel 06/07/20 Range/Units 04:18 Calcium 8.2 L (8.4-10.2) mg/dL Albumin 2.9 L (3.9-5) g/dL Pituitary panel 06/07/20 Range/Units 04:18 Sodium 144 (137-145) mmol/L Potassium 4.6 (3.6-5.0) mmol/L Chloride 115.8 H (98-107) mmol/L Carbon Dioxide 15 L (22-30) mmol/L BUN 32 H (7-17) mg/dL Creatinine 1.0 (0.6-1.2) mg/dL Glucose 242 H (65-100) mg/dL Calcium 8.2 L (8.4-10.2) mg/dL Adrenal panel 06/07/20 Range/Units 04:18 Sodium 144 (137-145) mmol/L Potassium 4.6 (3.6-5.0) mmol/L Chloride 115.8 H (98-107) mmol/L Carbon Dioxide 15 L (22-30) mmol/L BUN 32 H (7-17) mg/dL Creatinine 1.0 (0.6-1.2) mg/dL Glucose 242 H (65-100) mg/dL Calcium 8.2 L (8.4-10.2) mg/dL Total Bilirubin < 0.20 (0.1-1.2) mg/dL AST 19 (5-40) units/L ALT 12 (7-56) units/L Alkaline Phosphatase 109 (35-129) units/L Total Protein 6.5 (6.3-8.2) g/dL Albumin 2.9 L (3.9-5) g/dL - Imaging Additional Studies: AXR of today reviewed. NG output 50 ml/24 h
--- NOTE | 2020-06-07 19:19 | XRay Report ---
ABDOMEN 3 VIEW(S) INDICATION / CLINICAL INFORMATION: sbo. COMPARISON: None available. FINDINGS: TUBES / LINES: Esophagogastric tube tip and sidehole project over the left upper quadrant of the abdo men. BOWEL GAS PATTERN: No significant abnormality. FREE AIR / EXTRALUMINAL GAS: None seen. ADDITIONAL FINDINGS: No significant additional findings. CHEST: Visualized chest shows no significant abnormality. IMPRESSION: 1. No significant abnormality. Signer Name: Tobi Milner MD Signed: 06/07/2020 7:15 PM Workstation Name: [id number]
[2020-06-07] MEDS: SODIUM CHLORIDE 0.9% 1000 ML 1,000 ML IV SCH (21:27)
[2020-06-07] MEDS: REMDESIVIR 100 MG in SODIUM CHLORIDE 0.9% 250ML 250 ML IV SCH (21:27)
[2020-06-07] MEDS: SODIUM CHLORIDE 0.9% 50 ML IVPB IV SCH (21:28)
[2020-06-07] MEDS: hydrALAZINE 20 MG/1 ML INJ IV PRN (21:28)
[2020-06-08 05:37] LABS: Alanine Aminotransferase 10 units/L (7-56); BUN/Creatinine Ratio 33; Blood Urea Nitrogen 30 mg/dL (7-17); Calcium 8.6 mg/dL (8.4-10.2); Hemolysis Index 2
[2020-06-08] MEDS: INSULIN LISPRO 100 UNIT/ML SUB-Q SCH ×7 (08:05→21:54)
[2020-06-08] MEDS: ENOXAPARIN 40 MG/0.4 ML INJ SUB-Q SCH ×2 (11:06→21:53)
[2020-06-08] MEDS: dexAMETHasone 4 MG/ML VIAL IV SCH (11:06)
[2020-06-08] MEDS: INSULIN GLARGINE 100 UNITS/ML SUB-Q SCH (11:06)
--- NOTE | 2020-06-08 11:43 | XRay Report ---
ABDOMEN 1 VIEW INDICATION / CLINICAL INFORMATION: SBO. COMPARISON: 06/07/2020 FINDINGS: TUBES / LINES: Enteric catheter has been removed. BOWEL GAS PATTERN: Bowel gas pattern remains nonspecific with relative paucity of small bowel gas. No evidence to suggest new or worsening obstruction. FREE AIR / EXTRALUMINAL GAS: None. ADDITIONAL FINDINGS: No significant additional findings. IMPRESSION: Interval removal of enteric catheter. Otherwise stable radiographic appearance of the abdomen with no nspecific bowel gas pattern. Signer Name: Dustin Jacobs MD Signed: 06/08/2020 11:39 AM Workstation Name: [id number]
--- NOTE | 2020-06-08 12:02 | Progress Note ---
Assessment and Plan Assessment and plan: (1) Small bowel obstruction Current Visit: Yes Status: Acute Plan to address problem: Status post NG tube placement. NG tube removed yesterday Abdominal x-ray this morning shows no SBO Patient is on clear liquid diet-plan to advance to full diet today Surgery following (2) Hyperglycemia Current Visit: Yes Status: Acute Plan to address problem: Hemoglobin A1c 13 Continue Lantus and lispro as ordered Adjust insulin as indicated (3) Metabolic acidosis Current Visit: Yes Status: Acute Plan to address problem: Improved (4) Renal insufficiency Current Visit: Yes Status: Acute Plan to address problem: Possibly secondary to volume loss. We will continue IV fluid hydration. Baseline creatinine unknown. We will place consult to nephrology for evaluation and recommendation. (5) COVID-19 pneumonia Current Visit: Yes Status: Acute Plan to address problem: Continue dexamethasone and remdesivir ID on board (6) UTI (urinary tract infection) Current Visit: Yes Status: Acute Plan to address problem: We will continue on empiric IV antibiotics. We will await urine culture result. (7) DVT prophylaxis Current Visit: Yes Status: Acute Plan to address problem: Patient placed on sequential compression device. We will hold anticoagulation in view of possible surgical intervention-for small bowel obstruction. (8) Full code status Current Visit: Yes Status: Acute Plan to address problem: Patient is a full code. Hospital course 06/06/2020 -Patient has NG tube in place, Dr. Moya consulted and follow recommendation for removal of NG tube. Minimal output from the NG tube, no abdominal pain. Continue with IV fluids. Chest x-ray ordered. -Patient's hemoglobin A1c is 13.2, I added Lantus 20 units every morning, 10 units at bedtime Humalog, continue sliding scale insulin. Monitor blood sugar and adjust insulin as needed. Recent blood sugar is 349. Metabolic acidosis resolved. -BUN/creatinine is improving -COVID-19 test is pending -Patient is on IV antibiotics for UTI, urine culture Disposition; per clinical Course 06/07/2020 -Patient has NG tube in place, Dr. Moya consulted and follow recommendation for removal of NG tube. Minimal output from the NG tube, no abdominal pain. Continue with IV fluids. Discussed with Dr. Moya and his stated he will repeat KUB today and if there is improvement he will take out the NG tube -Patient's hemoglobin A1c is 13.2, blood sugar is uncontrolled and I increased Lantus to 30 units and Humalog AC to 12 units. -BUN/creatinine is improving -COVID-19 test is positive; ID consulted and put the patient on Decadron and remdesivir. Inflammatory markers ordered we will follow -Patient is on IV antibiotics for UTI, urine culture Disposition; per clinical Course Management plan was discussed with her Sister Asia over the phone. [phone]. 06/08/2020. NG tube discontinued. Abdominal xray ordered to reevaluate SBO. Now on clear liquid diet. Surgery on board On dexamethasone and remdesivir Labs reviewed-blood glucose better. Adjusted Lantus Renal function improving History Interval history: No acute events noted overnight Hospitalist Physical - Physical exam Narrative exam: VITAL SIGNS: Reviewed. GENERAL: Awake HEAD: No signs of head trauma. EYES: Pupils are equal. Extraocular motions intact. MOUTH: Oropharynx is normal. NECK: No adenopathy, no JVD. CHEST: Chest with diminished breath sounds bilaterally. No wheezes, rales, or rhonchi. CARDIAC: normal S1 and S2, without murmurs, gallops, or rubs. ABDOMEN: Soft, non tender and non distended. No rebound or guarding, and no masses palpated. Bowel Sounds normal. MUSCULOSKELETAL: No edema NEUROLOGIC EXAM: Alert and oriented x3. No focal neurologic deficits SKIN: No obvious lesions - Constitutional Vitals: Temp Pulse Resp BP Pulse Ox 97.2 F L 90 16 149/73 94 06/08/20 04:13 06/08/20 04:13 06/08/20 04:13 06/08/20 04:13 06/08/20 04:13 Results - Labs CBC & Chem 7: 06/06/20 04:26 06/08/20 04:46 Labs: Laboratory Last Values WBC 10.6 K/mm3 (4.5-11.0) 06/06/20 04:26 RBC 3.93 M/mm3 (3.65-5.03) 06/06/20 04:26 Hgb 11.5 gm/dl (10.1-14.3) 06/06/20 04:26 Hct 34.1 % (30.3-42.9) D 06/06/20 04:26 MCV 87 fl (79-97) 06/06/20 04:26 MCH 29 pg (28-32) 06/06/20 04:26 MCHC 34 % (30-34) 06/06/20 04:26 RDW 13.9 % (13.2-15.2) 06/06/20 04:26 Plt Count 179 K/mm3 (140-440) 06/06/20 04:26 Lymph % (Auto) 9.4 % (13.4-35.0) L 06/06/20 04:26 [place] % (Auto) 7.2 % (0.0-7.3) 06/06/20 04:26 Eos % (Auto) 0.6 % (0.0-4.3) 06/06/20 04:26 Baso % (Auto) 0.1 % (0.0-1.8) 06/06/20 04:26 Lymph # (Auto) 1.0 K/mm3 (1.2-5.4) L 06/06/20 04:26 [place] # (Auto) 0.8 K/mm3 (0.0-0.8) 06/06/20 04:26 Eos # (Auto) 0.1 K/mm3 (0.0-0.4) 06/06/20 04:26 Baso # (Auto) 0.0 K/mm3 (0.0-0.1) 06/06/20 04:26 Seg Neutrophils % 82.7 % (40.0-70.0) H 06/06/20 04:26 Seg Neutrophils # 8.8 K/mm3 (1.8-7.7) H 06/06/20 04:26 PT 13.7 Sec. (12.2-14.9) 06/06/20 04:26 INR 1.07 (0.87-1.13) 06/06/20 04:26 D-Dimer 2017.03 ng/mlDDU (0-234) H 06/07/20 09:30 VBG pH 7.227 (7.320-7.420) L 06/05/20 16:38 Sodium 146 mmol/L (137-145) H 06/08/20 04:46 Potassium 3.7 mmol/L (3.6-5.0) 06/08/20 04:46 Chloride 115.4 mmol/L (98-107) H 06/08/20 04:46 Carbon Dioxide 18 mmol/L (22-30) L 06/08/20 04:46 Anion Gap 16 mmol/L 06/08/20 04:46 BUN 30 mg/dL (7-17) H 06/08/20 04:46 Creatinine 0.9 mg/dL (0.6-1.2) 06/08/20 04:46 Estimated GFR > 60 ml/min 06/08/20 04:46 BUN/Creatinine Ratio 33 % 06/08/20 04:46 Glucose 120 mg/dL (65-100) H 06/08/20 04:46 POC Glucose 106 mg/dL (70-105) H 06/08/20 08:22 Hemoglobin A1c 13.4 % (4-6) H 06/05/20 16:38 Lactic Acid 2.60 mmol/L (0.7-2.0) H* 06/05/20 16:38 Calcium 8.6 mg/dL (8.4-10.2) 06/08/20 04:46 Magnesium 2.00 mg/dL (1.7-2.3) 06/05/20 16:38 Ferritin 215.0 ng/mL (10.0-200.0) H 06/07/20 09:30 Total Bilirubin < 0.20 mg/dL (0.1-1.2) 06/08/20 04:46 Direct Bilirubin < 0.2 mg/dL (0-0.2) 06/05/20 16:38 AST 14 units/L (5-40) 06/08/20 04:46 ALT 10 units/L (7-56) 06/08/20 04:46 Alkaline Phosphatase 101 units/L (35-129) 06/08/20 04:46 Lactate Dehydrogenase 336 units/L (91-180) H 06/05/20 18:20 Total Creatine Kinase 437 units/L (30-135) H 06/05/20 16:38 C-Reactive Protein 4.90 mg/dL (0.00-1.30) H 06/05/20 18:20 Total Protein 6.3 g/dL (6.3-8.2) 06/08/20 04:46 Albumin 3.0 g/dL (3.9-5) L 06/08/20 04:46 Albumin/Globulin Ratio 0.9 % 06/08/20 04:46 Lipase 49 units/L (13-60) 06/05/20 16:38 Procalcitonin 1.50 ng/mL (<0.15) 06/07/20 09:30 Urine Color Yellow (Yellow) 06/05/20 17:27 Urine Turbidity Cloudy (Clear) 06/05/20 17:27 Urine pH 5.0 (5.0-7.0) 06/05/20 17:27 Ur Specific [place] 1.016 (1.003-1.030) 06/05/20 17:27 Urine Protein >500 mg/dL (Negative) 06/05/20 17:27 Urine Glucose (UA) >=500 mg/dL (Negative) 06/05/20 17: Urine Ketones Neg mg/dL (Negative) 06/05/20 17:27 Urine Blood Sm (Negative) 06/05/20 17:27 Urine Nitrite Neg (Negative) 06/05/20 17:27 Urine Bilirubin Neg (Negative) 06/05/20 17:27 Urine Urobilinogen < 2.0 mg/dL (<2.0) 06/05/20 17:27 Ur Leukocyte Esterase Sm (Negative) 06/05/20 17:27 Urine WBC (Auto) 42.0 /HPF (0.0-6.0) H 06/05/20 17:27 Urine RBC (Auto) 5.0 /HPF (0.0-6.0) 06/05/20 17:27 U Epithel Cells (Auto) 1.0 /HPF (0-13.0) 06/05/20 17:27 Urine Bacteria (Auto) 3+ /HPF (Negative) 06/05/20 17:27 Urine WBC Clumps 2+ /HPF 06/05/20 17:27 Urine Mucus Few /HPF 06/05/20 17:27 Urine Yeast (Budding) 3+ /HPF 06/05/20 17:27 Coronavirus (PCR) Positive (Negative) A 06/06/20 Unknown Microbiology: Microbiology 06/05/20 18:20 Peripheral/Venous Blood Culture - Preliminary NO GROWTH AFTER 48 HOURS 06/05/20 18:31 Peripheral/Venous Blood Culture - Preliminary NO GROWTH AFTER 48 HOURS 06/05/20 17:27 Urine,Catheterized - Indwelling Catheter Urine Culture - Preliminary Ritchie/IV: Voiding Method Toilet IV Catheter Type [Right INT / Saline Lock Antecubital] Active Medications - Current Medications Current Medications: Generic Name Dose Route Start Last Admin Trade Name Freq PRN Reason Stop Dose Admin Acetaminophen 650 mg 06/05/20 18:34 Acetaminophen 325 Mg Tab PO Q4H PRN Pain MILD(1-3)/Fever >100.5/AHN Dexamethasone 6 mg 06/06/20 14:00 06/08/20 11:06 Dexamethasone 4 Mg/Ml Vial IV 06/15/20 10:01 6 mg DAILY BRIAN Administration Dextrose 50 ml 06/05/20 18:34 Dextrose 50% In Water (25gm) 50 Ml Syringe IV Q30MIN PRN Hypoglycemia Protocol Enoxaparin Sodium 40 mg 06/07/20 12:00 06/08/20 11:06 Enoxaparin 40 Mg/0.4 Ml Inj SUB-Q 40 mg BID BRIAN Administration Protocol Hydralazine HCl 10 mg 06/07/20 21:14 06/07/20 21:28 Hydralazine 20 Mg/1 Ml Inj IV 10 mg Q6HR PRN Administration Blood Pressure Sodium Chloride 1,000 mls @ 150 mls/hr 06/05/20 18:45 06/07/20 21:27 Nacl 0.9% 1000 Ml IV 150 mls/hr DIRECT BRIAN Administration REMDESIVIR 100 mg/ Sodium 250 mls @ 500 mls/hr 06/07/20 21:00 06/07/20 21:27 Chloride IV 06/10/20 21:29 500 mls/hr Q24HR@2100 BRIAN Administration Insulin Glargine 30 units 06/07/20 08:00 06/08/20 11:06 Insulin Glargine 100 Units/Ml SUB-Q 30 units QAMDIAB BRIAN Administration Insulin Human Lispro 0 unit 06/05/20 22:00 06/08/20 08:05 Insulin Lispro 100 Unit/Ml SUB-Q Not Given ACHS [facility] Protocol Insulin Human Lispro 12 unit 06/07/20 07:39 06/08/20 08:05 Insulin Lispro 100 Unit/Ml SUB-Q Not Given AC [facility] Morphine Sulfate 2 mg 06/05/20 18:34 Morphine 2 Mg/1 Ml Inj IV Q4H PRN Pain, Moderate (4-6) Ondansetron HCl 4 mg 06/05/20 18:34 Ondansetron 4 Mg/2 Ml Inj IV Q8H PRN Nausea And Vomiting Sodium Chloride 10 ml 06/05/20 22:00 06/08/20 11:12 Sodium Chloride 0.9% 10 Ml Flush Syringe IV 10 ml BID BRIAN Administration Sodium Chloride 10 ml 06/05/20 18:34 Sodium Chloride 0.9% 10 Ml Flush Syringe IV PRN PRN LINE FLUSH Sodium Chloride 50 ml 06/06/20 21:00 06/07/20 21:28 Sodium Chloride 0.9% 50 Ml Ivpb IV 06/10/20 21:01 Not Given Q24HR@2100 [facility] Nutrition/Malnutrition Assess - Dietary Evaluation Nutrition/Malnutrition Findings: Nutrition Notes Start: 06/06/20 11:21 Freq: Status: Active Protocol: Document 06/06/20 11:22 LM (Rec: 06/06/20 11:34 LM [id number]) Nutrition Notes Need for Assessment generated from: MD Order,Education Initial or Follow up Assessment Current Diagnosis Small Bowel Obstruction Other Pertinent Diagnosis Suspected COVID-19, UTI, Abdominal pain, renal insufficiency Current Diet NPO Labs/Tests BUN 35 Cr 1.3 BG 340 Pertinent Medications Humalog NS at 150ml/hr Height 5 ft Weight 78 kg [place] Body Weight (kg) 45.45 BMI 33.5 Weight Status Obese Subjective/Other Information MD consult for DM diet education. Pt is on contact precaution for COVID-19 and speaks Dutch. Spoke with pt' s daughter over the phone and sent education materials to daughter. Daughter states pt has not had DM education in the past. Pt has NGT to LIS. Burn Absent Trauma Absent GI Symptoms Other Current % PO Negligible Minimum of two criteria No physical signs of malnutrition #2 Nutrition Diagnosis Food and nutrition-related knowledge deficit Etiology No prior DM diet education As Evidenced by Signs and Symptoms BG 340 #1 Nutrition Diagnosis Inadequate oral intake Etiology SBO As Evidenced by Signs and Symptoms Pt NPO Is patient on ventilator? No Is Patient Ambulatory and/or Out of Bed No [facility] [phone] Calculation Used for Recommendations [facility] Additional Notes Protein: 50-74g (0.8-1.2g/kg using AdjBW of 62 kg) Fluid: 1ml/kcal or per MD Nutrition Intervention Change Diet Order: Diet advancement when medically feasible Teaching Recipient Family Learning Readiness Fair Teaching Methods Handout Education Handouts Provided Carbohydrate Counting for People with DM Barriers to Learning Cognitive/Verbal,Language RD phone number provided Yes Patient aware of follow up options Yes Goal #1 Diet advancement Anticipated Discharge Needs: Unable to determine at this time Follow-Up By: 06/09/20 Additional Comments F/U for diet advancement, POC, BG
--- NOTE | 2020-06-08 13:03 | Progress Note ---
Assessment and Plan Cultures: SARS CoV2 PCR: Positive 06/05/2020 blood culture: No growth thus far A/P: 64/F with DM admitted with: #Bilateral pneumonia: Secondary to COVID-19. #Acute hypoxic respiratory failure: On supplemental oxygen, saturating 92% on 3 L by nasal cannula. #DM, uncontrolled #Partial SBO: On NG suction. General surgery following. #Acute kidney injury: Creatinine improving #Possible UTI Recs: -continue IV/PO Dexamethasone 6 mg daily x 10 days -continue IV remdesivir, D3 -abx completed -prophylactic anticoagulation based on d-dimer per hospital protocol -trend ferritin, LDH, d-dimer, CRP every 2-3 days for risk stratification and to assess disease progression -get ambulatory sats in AM, if stable on room air, can discontinue Remdesivir early Jessica Silva MD, FACP [facility], [facility] ([facility] O: [phone] F: [phone] Subjective Date of service: 06/08/20 Principal diagnosis: ANDRE Interval history: No fever. Remains on oxygen per RN note. Objective - Exam Narrative Exam: Physical Exam (reviewed in chart to minimize risk of transmission) Constitutional: deferred Head, Ears, Nose: deferred Eyes: deferred Neck: deferred Oral: deferred Cardiovascular: deferred Respiratory: deferred GI: deferred Musculoskeletal: deferred Skin: deferred Hem/Lymphatic: deferred Psych: deferred Neurological: deferred - Constitutional Vitals: Vital Signs Temp Pulse Resp BP Pulse Ox 99.8 F H 90 20 156/70 96 06/08/20 10:50 06/08/20 10:50 06/08/20 10:50 06/08/20 10:50 06/08/20 10:50 Temperature -Last 24 Hours Temperature 99.8 F Temperature 97.2 F Temperature 98.4 F Temperature 97.7 F - Labs CBC & Chem 7: 06/06/20 04:26 06/08/20 04:46 Labs: Abnormal lab results 06/07/20 06/07/20 06/07/20 Range/Units 07:47 11:32 16:00 Sodium (137-145) mmol/L Chloride (98-107) mmol/L Carbon Dioxide (22-30) mmol/L BUN (7-17) mg/dL Glucose (65-100) mg/dL POC Glucose 227 H 182 H 280 H (70-105) mg/dL Albumin (3.9-5) g/dL 06/07/20 06/08/20 06/08/20 Range/Units 21:03 04:46 08:22 Sodium 146 H (137-145) mmol/L Chloride 115.4 H (98-107) mmol/L Carbon Dioxide 18 L (22-30) mmol/L BUN 30 H (7-17) mg/dL Glucose 120 H (65-100) mg/dL POC Glucose 225 H 106 H (70-105) mg/dL Albumin 3.0 L (3.9-5) g/dL 06/08/20 Range/Units 12:04 Sodium (137-145) mmol/L Chloride (98-107) mmol/L Carbon Dioxide (22-30) mmol/L BUN (7-17) mg/dL Glucose (65-100) mg/dL POC Glucose 174 H (70-105) mg/dL Albumin (3.9-5) g/dL
--- NOTE | 2020-06-08 13:48 | Progress Note ---
Assessment and Plan - Patient Problems (1) Small bowel obstruction Current Visit: Yes Status: Acute Plan to address problem: 1) FLD 2) AXR in the am. If okay, pt can be discharged from my perspective. Subjective Date of service: 06/08/20 Patient Reports: Positive: no new complaints, feels better, tolerating liquids well, flatus Objective Vital Signs - 12hr 06/08/20 06/08/20 04:13 10:50 Temperature 97.2 F L 99.8 F H Pulse Rate 90 90 Respiratory 16 20 Rate Blood Pressure 149/73 156/70 O2 Sat by Pulse 94 96 Oximetry - Abdomen PM_46_EXABD1 4, PM_46_EXABD1 6, PM_46_EXABD1 8 Hernia: none - Labs 06/06/20 04:26 06/08/20 04:46 Diabetes panel 06/08/20 Range/Units 04:46 Sodium 146 H (137-145) mmol/L Potassium 3.7 (3.6-5.0) mmol/L Chloride 115.4 H (98-107) mmol/L Carbon Dioxide 18 L (22-30) mmol/L BUN 30 H (7-17) mg/dL Creatinine 0.9 (0.6-1.2) mg/dL Glucose 120 H (65-100) mg/dL Calcium 8.6 (8.4-10.2) mg/dL AST 14 (5-40) units/L ALT 10 (7-56) units/L Alkaline Phosphatase 101 (35-129) units/L Total Protein 6.3 (6.3-8.2) g/dL Albumin 3.0 L (3.9-5) g/dL Calcium panel 06/08/20 Range/Units 04:46 Calcium 8.6 (8.4-10.2) mg/dL Albumin 3.0 L (3.9-5) g/dL Pituitary panel 06/08/20 Range/Units 04:46 Sodium 146 H (137-145) mmol/L Potassium 3.7 (3.6-5.0) mmol/L Chloride 115.4 H (98-107) mmol/L Carbon Dioxide 18 L (22-30) mmol/L BUN 30 H (7-17) mg/dL Creatinine 0.9 (0.6-1.2) mg/dL Glucose 120 H (65-100) mg/dL Calcium 8.6 (8.4-10.2) mg/dL Adrenal panel 06/08/20 Range/Units 04:46 Sodium 146 H (137-145) mmol/L Potassium 3.7 (3.6-5.0) mmol/L Chloride 115.4 H (98-107) mmol/L Carbon Dioxide 18 L (22-30) mmol/L BUN 30 H (7-17) mg/dL Creatinine 0.9 (0.6-1.2) mg/dL Glucose 120 H (65-100) mg/dL Calcium 8.6 (8.4-10.2) mg/dL Total Bilirubin < 0.20 (0.1-1.2) mg/dL AST 14 (5-40) units/L ALT 10 (7-56) units/L Alkaline Phosphatase 101 (35-129) units/L Total Protein 6.3 (6.3-8.2) g/dL Albumin 3.0 L (3.9-5) g/dL - Imaging Additional Studies: AXR with NSBGP.
--- NOTE | 2020-06-08 19:40 | Vascular Lab Report ---
DUPLEX DOPPLER LOWER EXTREMITY VEINS, BILATERAL INDICATION / CLINICAL INFORMATION: elevated d-dimer, covid infection. TECHNIQUE: Duplex doppler imaging was performed through the veins of both lower extremities using venous reina addis and other maneuvers. COMPARISON: None available. FINDINGS: RIGHT COMMON FEMORAL VEIN: Negative. RIGHT FEMORAL VEIN: Negative. RIGHT POPLITEAL VEIN: Negative. RIGHT CALF VEINS: Negative. LEFT COMMON FEMORAL VEIN: Negative. LEFT FEMORAL VEIN: Negative. LEFT POPLITEAL VEIN: Negative. LEFT CALF VEINS: Negative. ADDITIONAL FINDINGS: None. IMPRESSION: 1. No sonographic evidence for DVT in either lower extremity. Signer Name: Santiago Raya MD Signed: 06/08/2020 7:35 PM Workstation Name: [id number]
[2020-06-08] MEDS: REMDESIVIR 100 MG in SODIUM CHLORIDE 0.9% 250ML 250 ML IV SCH (21:53)
[2020-06-08] MEDS: SODIUM CHLORIDE 0.9% 50 ML IVPB IV SCH (21:53)
[2020-06-09] MEDS: SODIUM CHLORIDE 0.9% 1000 ML 1,000 ML IV SCH ×2 (00:51→09:07)
[2020-06-09] MEDS: hydrALAZINE 20 MG/1 ML INJ IV PRN (06:04)
[2020-06-09 06:29] LABS: Alanine Aminotransferase 10 units/L (7-56); Albumin 3.1 g/dL (3.9-5); Blood Urea Nitrogen 18 mg/dL (7-17); Calcium 8.4 mg/dL (8.4-10.2); Hemolysis Index 4
[2020-06-09 06:41] LABS: BUN/Creatinine Ratio 26
[2020-06-09] MEDS: INSULIN LISPRO 100 UNIT/ML SUB-Q SCH ×7 (09:02→22:08)
[2020-06-09] MEDS: ENOXAPARIN 40 MG/0.4 ML INJ SUB-Q SCH ×2 (09:06→21:28)
[2020-06-09] MEDS: INSULIN GLARGINE 100 UNITS/ML SUB-Q SCH (09:06)
[2020-06-09] MEDS: dexAMETHasone 4 MG/ML VIAL IV SCH (09:06)
--- NOTE | 2020-06-09 09:36 | XRay Report ---
ABDOMEN 2 VIEWS INDICATION / CLINICAL INFORMATION: sbo. COMPARISON: None available. FINDINGS: BOWEL: No dilated bowel. FREE AIR / EXTRALUMINAL GAS: None seen. CALCIFICATIONS: No significant abnormal calcifications. ADDITIONAL FINDINGS: Previous cholecystectomy LUNGS: Visualized lungs show no significant abnormality. SKELETAL STRUCTURES: No significant abnormality. IMPRESSION: 1. No significant abnormality. Signer Name: Craig Parker MD Signed: 06/09/2020 9:31 AM Workstation Name: [id number]
[2020-06-09] MEDS ORDERED: POTASSIUM CHLORIDE ER 20 MEQ TAB PO NR ×2 (10:30→15:00)
--- NOTE | 2020-06-09 13:56 | Progress Note ---
Assessment and Plan Cultures: SARS CoV2 PCR: Positive 06/05/2020 blood culture: No growth thus far A/P: 64/F with DM admitted with: #Bilateral pneumonia: Secondary to COVID-19. #Acute hypoxic respiratory failure: weaned to room air. #DM, uncontrolled #Partial SBO: conservatively managed. General surgery following. #Acute kidney injury: Creatinine improved #Possible UTI Recs: -continue IV/PO Dexamethasone 6 mg daily x 10 days -weaned to room air, Remdesivir stopped -abx completed -ambulatory sats and discharge planning Jessica Silva MD, FACP [facility] O: [phone] F: [phone] Subjective Date of service: 06/09/20 Principal diagnosis: ANDRE Interval history: Low-grade temperature. Weaned to room air. Objective - Exam Narrative Exam: Physical Exam (reviewed in chart to minimize risk of transmission) Constitutional: deferred Head, Ears, Nose: deferred Eyes: deferred Neck: deferred Oral: deferred Cardiovascular: deferred Respiratory: deferred GI: deferred Musculoskeletal: deferred Skin: deferred Hem/Lymphatic: deferred Psych: deferred Neurological: deferred - Constitutional Vitals: Vital Signs Temp Pulse Resp BP Pulse Ox 98.4 F 77 20 194/90 93 06/09/20 05:25 06/09/20 05:25 06/09/20 05:25 06/09/20 05:25 06/09/20 05:25 Temperature -Last 24 Hours Temperature 98.4 F Temperature 99.1 F Temperature 99.4 F - Labs CBC & Chem 7: 06/06/20 04:26 06/09/20 04:59 Labs: Abnormal lab results 06/08/20 06/08/20 06/09/20 Range/Units 16:30 21:41 04:59 Potassium 3.4 L (3.6-5.0) mmol/L Chloride 111.2 H (98-107) mmol/L BUN 18 H (7-17) mg/dL Glucose 134 H (65-100) mg/dL POC Glucose 253 H 182 H (70-105) mg/dL Total Protein 5.7 L (6.3-8.2) g/dL Albumin 3.1 L (3.9-5) g/dL 06/09/20 06/09/20 Range/Units 07:35 12:04 Potassium (3.6-5.0) mmol/L Chloride (98-107) mmol/L BUN (7-17) mg/dL Glucose (65-100) mg/dL POC Glucose 111 H 219 H (70-105) mg/dL Total Protein (6.3-8.2) g/dL Albumin (3.9-5) g/dL
--- NOTE | 2020-06-09 15:00 | Progress Note ---
Assessment and Plan -- Small bowel obstruction Status post NG tube placement. NG tube now removed repeat Abdominal x-ray shows no SBO Patient advanced to full liquid diet Surgery following -- Hyperglycemia Hemoglobin A1c 13 Continue Lantus and lispro as ordered Adjust insulin as indicated -- Metabolic acidosis, Improved -- ANDRE, vasomotor nephropathy Possibly secondary to volume loss. We will continue IV fluid hydration. Baseline creatinine unknown. consulted to nephrology for evaluation and recommendation. -- COVID-19 pneumonia Continue dexamethasone and s/p remdesivir x2 dose ID on board -- UTI (urinary tract infection) We will continue on empiric IV antibiotics. We will await urine culture result. -- DVT prophylaxis Patient placed on sequential compression device. We will hold anticoagulation in view of possible surgical intervention-for small bowel obstruction. -- Full code status Hospital course 06/06/2020 -Patient has NG tube in place, Dr. Moya consulted and follow recommendation for removal of NG tube. Minimal output from the NG tube, no abdominal pain. Continue with IV fluids. Chest x-ray ordered. -Patient's hemoglobin A1c is 13.2, I added Lantus 20 units every morning, 10 units at bedtime Humalog, continue sliding scale insulin. Monitor blood sugar and adjust insulin as needed. Recent blood sugar is 349. Metabolic acidosis resolved. -BUN/creatinine is improving -COVID-19 test is pending -Patient is on IV antibiotics for UTI, urine culture Disposition; per clinical Course 06/07/2020 -Patient has NG tube in place, Dr. Moya consulted and follow recommendation for removal of NG tube. Minimal output from the NG tube, no abdominal pain. Continue with IV fluids. Discussed with Dr. Moya and his stated he will repeat KUB today and if there is improvement he will take out the NG tube -Patient's hemoglobin A1c is 13.2, blood sugar is uncontrolled and I increased Lantus to 30 units and Humalog AC to 12 units. -BUN/creatinine is improving -COVID-19 test is positive; ID consulted and put the patient on Decadron and remdesivir. Inflammatory markers ordered we will follow -Patient is on IV antibiotics for UTI, urine culture Disposition; per clinical Course Management plan was discussed with her Sister Asia over the phone. [phone]. 06/08/2020. NG tube discontinued. Abdominal xray ordered to reevaluate SBO. Now on clear liquid diet. Surgery on board On dexamethasone and remdesivir Labs reviewed-blood glucose better. Adjusted Lantus Renal function improving 06/09/2020: Patient tolerating full liquid diet, remains on RA. Stopped remdesivir today. Cont to follow inflammatory markers. if inflammatory markers are stable and tolerates advance diet possible d/c tomorrow. Assess for home O2 requirement Subjective Date of service: 06/09/20 Principal diagnosis: ANDRE Interval history: Patient seen and examined. Medical records and medication list reviewed. No acute event overnight noted by the RN. Patient denies any chest pain or difficulty breathing. Patient is tolerating full liquid diet. Discussed plan of care at bedside with patient. Objective - Exam Narrative Exam: Limited physical exam due to COVID-19 pandemic to minimize transmission of the disease and to preserve PPE. Vital reviewed and stable. GENERAL: well-developed well-nourished female lying on bed appeared to be in no discomfort. HEENT: Normocephalic. Atraumatic. NECK: Supple. CHEST/LUNGS: breathing nonlabored. HEART/CARDIOVASCULAR: HR stable per recorded vitals ABDOMEN: Visibly not distended SKIN: There is no rash NEURO: No focal motor deficit. Follows command. MUSCULOSKELETAL: No joint effusion EXTRIMITY: No swelling, no cyanosis or clubbing. PSYCH: Cooperative. - Constitutional Vitals: Vital Signs - 12hr 06/09/20 06/09/20 05:25 12:01 Temperature 98.4 F 99.8 F H Pulse Rate 77 87 Respiratory 20 22 Rate Blood Pressure 194/90 161/72 O2 Sat by Pulse 93 97 Oximetry - Labs CBC & Chem 7: 06/06/20 04:26 06/09/20 04:59 Labs: Abnormal lab results 06/08/20 06/08/20 06/09/20 Range/Units 16:30 21:41 04:59 Potassium 3.4 L (3.6-5.0) mmol/L Chloride 111.2 H (98-107) mmol/L BUN 18 H (7-17) mg/dL Glucose 134 H (65-100) mg/dL POC Glucose 253 H 182 H (70-105) mg/dL Total Protein 5.7 L (6.3-8.2) g/dL Albumin 3.1 L (3.9-5) g/dL 06/09/20 06/09/20 Range/Units 07:35 12:04 Potassium (3.6-5.0) mmol/L Chloride (98-107) mmol/L BUN (7-17) mg/dL Glucose (65-100) mg/dL POC Glucose 111 H 219 H (70-105) mg/dL Total Protein (6.3-8.2) g/dL Albumin (3.9-5) g/dL
[2020-06-09] MEDS: PANTOPRAZOLE 20 MG TAB PO SCH (21:28)
[2020-06-09] MEDS: SODIUM CHLORIDE 0.9% 50 ML IVPB IV SCH (22:09)
[2020-06-10] MEDS: INSULIN LISPRO 100 UNIT/ML SUB-Q SCH ×4 (07:52→12:34)
[2020-06-10] MEDS: PANTOPRAZOLE 20 MG TAB PO SCH (08:09)
--- NOTE | 2020-06-10 08:46 | Progress Note ---
Assessment and Plan - Patient Problems (1) Small bowel obstruction Current Visit: Yes Status: Acute Plan to address problem: 1) SBO resolved. 2) Regular diet 3) Can be discharged from my perspective. Subjective Date of service: 06/10/20 Patient Reports: Positive: no new complaints, flatus Objective Vital Signs - 12hr 06/09/20 06/09/20 06/10/20 21:52 22:00 05:16 Temperature 98.7 F 98.3 F Pulse Rate 90 75 Pulse Rate [ 90 Right Radial] Respiratory 20 20 16 Rate Blood Pressure 145/115 164/71 O2 Sat by Pulse 91 91 97 Oximetry - Abdomen PM_46_EXABD1 4, PM_46_EXABD1 6, PM_46_EXABD1 8 Hernia: none - Labs 06/06/20 04:26 06/09/20 04:59
[2020-06-10] MEDS: ENOXAPARIN 40 MG/0.4 ML INJ SUB-Q SCH (09:29)
[2020-06-10] MEDS: dexAMETHasone 4 MG/ML VIAL IV SCH (09:29)
[2020-06-10] MEDS: INSULIN GLARGINE 100 UNITS/ML SUB-Q SCH (09:35)
[2020-06-10] MEDS ORDERED: DEXAMETHASONE 4 MG TAB PO SCH (10:00)
[2020-06-10] MEDS ORDERED: METOPROLOL TARTRATE 25 MG TAB PO SCH (12:26)
--- NOTE | 2020-06-10 12:29 | Discharge Summary ---
Providers - Providers Date of Admission: 06/06/20 08:09 Date of discharge: 06/10/20 Attending physician: HAI ADAIR 06/05/20 17:55 Consult to Physician [CONS] Urgent Comment: Consulting Provider: SADA MOYA Physician Instructions: Reason For Exam: sbo 06/05/20 18:34 Consult to Dietitian/Nutrition [CONS] Routine Physician Instructions: Reason For Exam: Reason for Consult: Diet education 06/05/20 18:41 Consult to Physician [CONS] Routine Comment: Consulting Provider: BIJU SÁNCHEZ Physician Instructions: Reason For Exam: Pneumonia- R/O COVID -19 06/05/20 18:53 Consult to Physician [CONS] Routine Comment: Consulting Provider: IVONNE SINGER Physician Instructions: Reason For Exam: Renal insufficiency Primary care physician: [employer] Hospitalization Condition: Serious Pertinent studies: CT abdomen pelvis CTA chest Chest x-rays Abdominal x-rays Lower extremity venous Doppler Hospital course: Hospital course 06/06/2020 -Patient has NG tube in place, Dr. Moya consulted and follow recommendation for removal of NG tube. Minimal output from the NG tube, no abdominal pain. Continue with IV fluids. Chest x-ray ordered. -Patient's hemoglobin A1c is 13.2, I added Lantus 20 units every morning, 10 units at bedtime Humalog, continue sliding scale insulin. Monitor blood sugar and adjust insulin as needed. Recent blood sugar is 349. Metabolic acidosis resolved. -BUN/creatinine is improving -COVID-19 test is pending -Patient is on IV antibiotics for UTI, urine culture Disposition; per clinical Course 06/07/2020 -Patient has NG tube in place, Dr. Moya consulted and follow recommendation for removal of NG tube. Minimal output from the NG tube, no abdominal pain. Continue with IV fluids. Discussed with Dr. Moya and his stated he will repeat KUB today and if there is improvement he will take out the NG tube -Patient's hemoglobin A1c is 13.2, blood sugar is uncontrolled and I increased Lantus to 30 units and Humalog AC to 12 units. -BUN/creatinine is improving -COVID-19 test is positive; ID consulted and put the patient on Decadron and remdesivir. Inflammatory markers ordered we will follow -Patient is on IV antibiotics for UTI, urine culture Disposition; per clinical Course Management plan was discussed with her Sister Aisa over the phone. [phone]. 06/08/2020. NG tube discontinued. Abdominal xray ordered to reevaluate SBO. Now on clear liquid diet. Surgery on board On dexamethasone and remdesivir Labs reviewed-blood glucose better. Adjusted Lantus Renal function improving 06/09/2020: Patient tolerating full liquid diet, remains on RA. Stopped remdesivir today. Cont to follow inflammatory markers. if inflammatory markers are stable and tolerates advance diet possible d/c tomorrow. Assess for home O2 requirement 06/09: Patient placed on consistent carb diet and she tolerated well. Maintains oxygenation in room air. Plan to DC home if ambulatory O2 sat normal. Discharge diagnosis: -- Small bowel obstruction Status post NG tube placement. NG tube now removed repeat Abdominal x-ray shows no SBO Patient advanced to full liquid diet Surgery following -- Hyperglycemia Hemoglobin A1c 13 Continue Lantus and lispro as ordered Adjust insulin as indicated -- Metabolic acidosis, Improved -- ANDRE, vasomotor nephropathy Possibly secondary to volume loss. We will continue IV fluid hydration. Baseline creatinine unknown. consulted to nephrology for evaluation and recommendation. -- COVID-19 pneumonia Continue dexamethasone and s/p remdesivir x2 dose ID on board --Elevated D-dimer, due to COVID-19 infection CTA showed no PE and lower extremity venous Doppler showed no DVT patient was placed on prophylactic Anticoagulation -- UTI (urinary tract infection) Urine culture grew group B Streptococcus Treated with Rocephin for 3 days --HTN, placed on metoprolol 12.5 BID -- DVT prophylaxis Patient placed on sequential compression device. We will hold anticoagulation in view of possible surgical intervention-for small bowel obstruction. -- Full code status Disposition: DC-01 TO HOME OR SELFCARE Time spent for discharge: 34 minutes Core Measure Documentation - Palliative Care Palliative Care/ Comfort Measures: Not Applicable - Core Measures Any of the following diagnoses?: none Exam - Physical Exam Narrative exam: Limited physical exam due to COVID-19 pandemic to minimize transmission of the disease and to preserve PPE. Vital reviewed and stable. GENERAL: well-developed well-nourished female lying on bed appeared to be in no discomfort. HEENT: Normocephalic. Atraumatic. NECK: Supple. CHEST/LUNGS: breathing nonlabored. HEART/CARDIOVASCULAR: HR stable per recorded vitals ABDOMEN: Visibly not distended SKIN: There is no rash NEURO: No focal motor deficit. Follows command. MUSCULOSKELETAL: No joint effusion EXTRIMITY: No swelling, no cyanosis or clubbing. PSYCH: Cooperative. - Constitutional Vitals: Temp Pulse Resp BP Pulse Ox 98.3 F 75 16 164/71 97 06/10/20 05:16 06/10/20 05:16 06/10/20 05:16 06/10/20 05:16 06/10/20 05:16 Plan Activity: advance as tolerated Weight Bearing Status: Weight Bear as Tolerated Diet: diabetic Special Instructions: record blood sugar diary (Before meals and bedtime) Additional Instructions: Please quarantine yourself total 10 days from the onset of your COVID-19 infection Follow up with: PRIMARY CARE, [Primary Care Provider] - 3-5 Days WOO CLARK MD [Staff Physician] - 7 Days Prescriptions: dexAMETHasone [Decadron] 6 mg PO DAILY #5 tablet Apixaban [Eliquis] 5 mg PO Q12HR #14 tablet Lispro Insulin [HumaLOG] 12 unit SUB-Q AC #1 vial Lispro Insulin [HumaLOG] 0 unit SUB-Q ACHS #1 vial Insulin Glargine [Lantus VIAL] 30 units SUB-Q QAMDIAB #1 vial Metoprolol [Lopressor TAB] 12.5 mg PO BID #30 tablet Ascorbic Acid [Vitamin C] 1,000 mg PO BID #14 tablet Cholecalciferol (Vitamin D3) [Vitamin D3] 5,000 unit PO DAILY #7 tablet Zinc Sulfate 220 mg PO BID #14 capsule
[2020-06-10 12:35] VITALS: BP 154/84
[2020-06-10] MEDS ORDERED: CHOLECALCIFEROL (VIT D3) 5,000 UNIT TAB PO SCH (14:00)
[2020-06-10 14:27] LABS: C-Reactive Protein 0.8 mg/dL (0.00-1.30)
[2020-06-10] MEDS ORDERED: ZINC SULFATE 220 MG CAP PO SCH (22:00)
[2020-06-10] MEDS ORDERED: APIXABAN 5 MG TAB PO SCH (22:00)
[2020-06-10] MEDS ORDERED: ASCORBIC ACID 500 MG TAB PO SCH (22:00)
== END 2020-06-10 17:30 | disposition home or self-care (01) | DRG 177 ==
LOC: ED 16:16 → 3A 18:03 → OBSVTOIN 06-06 08:09
PROVIDERS: ADMIT Internal Medicine Geriatric Medicine; ATTEND Internal Medicine
PROC: 0D9670Z Drainage of Stomach with Drainage Device, Via Natural or Artificial Opening (ICD-10-PCS; principal; 2020-06-06)
DX: U07.1 COVID-19 (principal); N17.0 Acute kidney failure with tubular necrosis; J96.01 Acute respiratory failure with hypoxia; J12.82 Pneumonia due to coronavirus disease 2019; K56.600 Partial intestinal obstruction, unspecified as to cause; E87.2 Acidosis; N39.0 Urinary tract infection, site not specified; R33.9 Retention of urine, unspecified; B95.1 Streptococcus, group B, as the cause of diseases classified elsewhere; I10 Essential (primary) hypertension; E11.65 Type 2 diabetes mellitus with hyperglycemia; Z90.49 Acquired absence of other specified parts of digestive tract; Z79.899 Other long term (current) drug therapy; Z91.018 Allergy to other foods
CPT/HCPCS: 36415; 71045; 71275; 74018; 74019; 74176; 80048; 80053; 80076; 81001; 82140; 82550; 82728; 82805; 82947; 82962; 83036; 83615; 83690; 83735; 84145; 85025; 85379; 85610; 86140; 87040; 87086; 93970; 96365; 96366; 96375; 96376; G0378; J0360; J0456; J0696; J1100; J1650; J1815; J2270; J2405; J2765; J7030; J7040; J8540; Q9967; U0003

== ENCOUNTER 2020-10-29 17:43 | Inpatient (IN) | payer OTHER, SELFPAY ==
[2020-10-29] MEDS ORDERED: SODIUM CHLORIDE 0.9% 1000 ML IV SOLN IV ONE (18:03)
[2020-10-29] MEDS ORDERED: ACETAMINOPHEN 500 MG TAB PO ONE (18:04)
--- NOTE | 2020-10-29 18:05 | Event Note ---
ED Screening Note ED Screening Note: 64 yo comes to er with chills for 4 days she has had covid immunization x 2 she is diabetic / obese/htn swiss speaking family not present in triage no cough denies abd pain denies back pain This initial assessment/diagnostic orders/clinical plan/treatment(s) is/are subject to change based on patients health status, clinical progression and re- assessment by fellow clinical providers in the ED. Further treatment and workup at subsequent clinical providers discretion. Patient/guardian urged not to elope from the ED as their condition may be serious if not clinically assessed and managed. Initial orders include: code sepsis
[2020-10-29 18:17] LABS: Hematocrit 31.4 % (30.3-42.9); Hemoglobin 10.8 gm/dl (10.1-14.3); Mean Corpuscular HGB Conc 34 % (30-34); Mean Corpuscular Volume 84 fl (79-97); Platelet Count 156 K/mm3 (140-440); Red Blood Count 3.74 M/mm3 (3.65-5.03); Red Cell Distribution Width 14.5 % (13.2-15.2)
--- NOTE | 2020-10-29 18:29 | XRay Report ---
CHEST 2 VIEWS INDICATION / CLINICAL INFORMATION: Fever, chills for 4 days. COMPARISON: One view of the chest from 06/05/2020. FINDINGS: SUPPORT DEVICES: None. HEART / MEDIASTINUM: No significant abnormality. LUNGS / PLEURA: No significant pulmonary abnormality. No significant pleural effusion. No pneumothora x. ADDITIONAL FINDINGS: No significant additional findings. IMPRESSION: 1. No acute abnormality of the chest. Signer Name: Kevan Clarke MD Signed: 10/29/2020 6:25 PM Workstation Name: [id number]
[2020-10-29 18:50] LABS: Alanine Aminotransferase 14 units/L (7-56); Albumin 3.1 g/dL (3.9-5); BUN/Creatinine Ratio 32; Blood Urea Nitrogen 63 mg/dL (7-17); Calcium 8.1 mg/dL (8.4-10.2); Hemolysis Index 5
--- NOTE | 2020-10-29 20:07 | Emergency Department Report ---
HPI - General Chief Complaint: Fever Time Seen by Provider: 10/29/20 18:03 - HPI HPI: 64-year-old female with history of hypertension and DM 2 on insulin presents complaining of 4 days of fever and chills. The patient states that for the past 4 days she has had chills and subjective fever but is not measured her temperature. For the first 2 days of this she stated that she was having generalized abdominal pain with nausea/vomiting and diarrhea, but for the past 2 days she has felt nauseated but without any vomiting and without diarrhea. Other than that she has had had some lightheadedness/dizziness today which prompted her to come into the emergency department. She reports that she is vaccinated against the novel coronavirus and received her second dose of the vaccine on October 16. She denies any headache, vision change, neck pain/stiffness , chest pain, cough, back pain, abdominal pain, dysuria, focal weakness, sensory changes, or any other complaints at this time. ED Past Medical Hx - Past Medical History Previous Medical History?: Yes Hx Hypertension: Yes Hx Diabetes: Yes - Surgical History Past Surgical History?: Yes Hx Cholecystectomy: Yes Additional Surgical History: bladder - Social History Smoking Status: Never Smoker - Medications Home Medications: Home Medications Medication Instructions Recorded Confirmed Last Taken Type Apixaban [Eliquis] 5 mg PO Q12HR #14 tablet 06/10/20 Unknown Rx Ascorbic Acid [Vitamin C] 1,000 mg PO BID #14 tablet 06/10/20 Unknown Rx Cholecalciferol (Vitamin D3) 5,000 unit PO DAILY #7 tablet 06/10/20 Unknown Rx [Vitamin D3] Insulin Glargine [Lantus VIAL] 30 units SUB-Q QAMDIAB #1 vial 06/10/20 Unknown Rx Lispro Insulin [HumaLOG] 0 unit SUB-Q ACHS #1 vial 06/10/20 Unknown Rx Lispro Insulin [HumaLOG] 12 unit SUB-Q AC #1 vial 06/10/20 Unknown Rx Metoprolol [Lopressor TAB] 12.5 mg PO BID #30 tablet 06/10/20 Unknown Rx Zinc Sulfate 220 mg PO BID #14 capsule 06/10/20 Unknown Rx dexAMETHasone [Decadron] 6 mg PO DAILY #5 tablet 06/10/20 Unknown Rx ED Review of Systems ROS: Stated complaint: SHAKING/COLD Other details as noted in HPI Constitutional: chills, fever Eyes: denies: eye pain, vision change ENT: denies: throat pain, congestion Respiratory: denies: cough, shortness of breath Cardiovascular: denies: chest pain, palpitations Gastrointestinal: abdominal pain (prior buyt not now), nausea. denies: vomiting Genitourinary: denies: dysuria, frequency Musculoskeletal: denies: back pain, myalgia Skin: denies: rash Neurological: denies: headache, weakness, numbness, paresthesias Physical Exam - Physical Exam Vital Signs: Vital Signs 10/29/20 10/29/20 18:02 19:47 Temperature 103.1 F H Pulse Rate 144 H 112 H Respiratory 20 20 Rate Blood Pressure 128/74 O2 Sat by Pulse 95 98 Oximetry Physical Exam: GENERAL: Well developed and well nourished. No acute distress HEENT: Normocephalic. No obvious signs of trauma. Very dry mucous membranes. EYES: Extraocular movements are intact. Pupils are equal round and reactive to light bilaterally NECK: Supple. Trachea is midline. Full painless ROM is intact LUNGS: Nonlabored breathing. Equal chest rise bilaterally. Clear to auscultation bilaterally. HEART/CARDIOVASCULAR: Tachycardic but with regular rhythm. No murmurs or rubs. VASCULAR: 2+ peripheral pulses. ABDOMEN: Abdomen is slightly distended but soft and nontender. There is no guarding or rebound. SKIN: Skin is warm and dry NEURO: Patient is awake, alert, and oriented. registered nurse obstetrics II-XII grossly intact. No focal deficits. Normal motor and sensory exam throughout. Normal speech. MUSCULOSKELETAL: No obvious deformities. No significant tenderness. Normal ROM throughout. BACK/SPINE: No costovertebral angle tenderness. ED Course Vital Signs 10/29/20 10/29/20 18:02 19:47 Temperature 103.1 F H Pulse Rate 144 H 112 H Respiratory 20 20 Rate Blood Pressure 128/74 O2 Sat by Pulse 95 98 Oximetry ED Medical Decision Making - Lab Data Result diagrams: 10/29/20 18:07 10/29/20 18:07 Lab Results 10/29/20 10/29/20 10/29/20 Range/Units 18:02 18:07 18:07 WBC 7.2 (4.5-11.0) K/mm3 RBC 3.74 (3.65-5.03) M/mm3 Hgb 10.8 (10.1-14.3) gm/dl Hct 31.4 (30.3-42.9) % MCV 84 (79-97) fl MCH 29 (28-32) pg MCHC 34 (30-34) % RDW 14.5 (13.2-15.2) % Plt Count 156 (140-440) K/mm3 Add Manual Diff Complete Total Counted 100 Seg Neutrophils % Customer Service Technician Seg Neuts % (Manual) 90.0 H (40.0-70.0) % Band Neutrophils % 5.0 % Lymphocytes % (Manual) 2.0 L (13.4-35.0) % Monocytes % (Manual) 3.0 (0.0-7.3) % Nucleated RBC % Not Reportable Seg Neutrophils # Man 6.5 (1.8-7.7) K/mm3 Band Neutrophils # 0.4 K/mm3 Lymphocytes # (Manual) 0.1 L (1.2-5.4) K/mm3 Abs React Lymphs (Man) 0.0 K/mm3 Monocytes # (Manual) 0.2 (0.0-0.8) K/mm3 Eosinophils # (Manual) 0.0 (0.0-0.4) K/mm3 Basophils # (Manual) 0.0 (0.0-0.1) K/mm3 Metamyelocytes # 0.0 K/mm3 Myelocytes # 0.0 K/mm3 Promyelocytes # 0.0 K/mm3 Blast Cells # 0.0 K/mm3 WBC Morphology Not Reportable Hypersegmented Neuts Not Reportable Hyposegmented Neuts Not Reportable Hypogranular Neuts Not Reportable Smudge Cells Not Reportable Toxic Granulation Not Reportable Toxic Vacuolation Not Reportable Dohle Bodies Not Reportable Pelger-Huet Anomaly Not Reportable Steffi Rods Not Reportable Platelet Estimate Consistent w auto Clumped Platelets Rare Plt Clumps, EDTA Not Reportable Large Platelets Not Reportable Giant Platelets Not Reportable Platelet Satelliting Not Reportable Plt Morphology Comment Not Reportable RBC Morphology Normal Dimorphic RBCs Not Reportable Polychromasia Not Reportable Hypochromasia Not Reportable Poikilocytosis Not Reportable Anisocytosis Not Reportable Microcytosis Not Reportable Macrocytosis Not Reportable Spherocytes Not Reportable Pappenheimer Bodies Not Reportable Sickle Cells Not Reportable Target Cells Not Reportable Tear Drop Cells Not Reportable Ovalocytes Not Reportable Helmet Cells Not Reportable Currie-Philip Bodies Not Reportable [place] Rings Not Reportable [place] Cells Not Reportable Bite Cells Not Reportable Crenated Cell Not Reportable Elliptocytes Not Reportable Acanthocytes (Spur) Not Reportable Rouleaux Not Reportable Hemoglobin C Crystals Not Reportable Schistocytes Not Reportable Malaria parasites Not Reportable Guy Bodies Not Reportable Hem Pathologist Commnt No VBG pH (7.320-7.420) Sodium (137-145) mmol/L Potassium (3.6-5.0) mmol/L Chloride (98-107) mmol/L Carbon Dioxide (22-30) mmol/L Anion Gap mmol/L BUN (7-17) mg/dL Creatinine (0.6-1.2) mg/dL Estimated GFR ml/min BUN/Creatinine Ratio % Glucose (65-100) mg/dL POC Glucose 230 H (70-105) mg/dL Ketones Quantitative (Negative) Lactic Acid (0.7-2.0) mmol/L Calcium (8.4-10.2) mg/dL Total Bilirubin (0.1-1.2) mg/dL AST (5-40) units/L ALT (7-56) units/L Alkaline Phosphatase (35-129) units/L Troponin T < 0.010 (0.00-0.029) ng/mL Total Protein (6.3-8.2) g/dL Albumin (3.9-5) g/dL Albumin/Globulin Ratio % 10/29/20 10/29/20 10/29/20 Range/Units 18:07 18:07 18:07 WBC (4.5-11.0) K/mm3 RBC (3.65-5.03) M/mm3 Hgb (10.1-14.3) gm/dl Hct (30.3-42.9) % MCV (79-97) fl MCH (28-32) pg MCHC (30-34) % RDW (13.2-15.2) % Plt Count (140-440) K/mm3 Add Manual Diff Total Counted Seg Neutrophils % Seg Neuts % (Manual) (40.0-70.0) % Band Neutrophils % % Lymphocytes % (Manual) (13.4-35.0) % Monocytes % (Manual) (0.0-7.3) % Nucleated RBC % Seg Neutrophils # Man (1.8-7.7) K/mm3 Band Neutrophils # K/mm3 Lymphocytes # (Manual) (1.2-5.4) K/mm3 Abs React Lymphs (Man) K/mm3 Monocytes # (Manual) (0.0-0.8) K/mm3 Eosinophils # (Manual) (0.0-0.4) K/mm3 Basophils # (Manual) (0.0-0.1) K/mm3 Metamyelocytes # K/mm3 Myelocytes # K/mm3 Promyelocytes # K/mm3 Blast Cells # K/mm3 WBC Morphology Hypersegmented Neuts Hyposegmented Neuts Hypogranular Neuts Smudge Cells Toxic Granulation Toxic Vacuolation Dohle Bodies Pelger-Huet Anomaly Steffi Rods Platelet Estimate Clumped Platelets Plt Clumps, EDTA Large Platelets Giant Platelets Platelet Satelliting Plt Morphology Comment RBC Morphology Dimorphic RBCs Polychromasia Hypochromasia Poikilocytosis Anisocytosis Microcytosis Macrocytosis Spherocytes Pappenheimer Bodies Sickle Cells Target Cells Tear Drop Cells Ovalocytes Helmet Cells Currie-Philip Bodies [place] Rings Reji Cells Bite Cells Crenated Cell Elliptocytes Acanthocytes (Spur) Rouleaux Hemoglobin C Crystals Schistocytes Malaria parasites Guy Bodies Hem Pathologist Commnt VBG pH (7.320-7.420) Sodium 127 L (137-145) mmol/L Potassium 4.6 (3.6-5.0) mmol/L Chloride 95.4 L (98-107) mmol/L Carbon Dioxide 17 L (22-30) mmol/L Anion Gap 19 mmol/L BUN 63 H (7-17) mg/dL Creatinine 2.0 H (0.6-1.2) mg/dL Estimated GFR 25 ml/min BUN/Creatinine Ratio 32 % Glucose 240 H (65-100) mg/dL POC Glucose (70-105) mg/dL Ketones Quantitative Negative (Negative) Lactic Acid 2.00 (0.7-2.0) mmol/L Calcium 8.1 L (8.4-10.2) mg/dL Total Bilirubin 0.40 (0.1-1.2) mg/dL AST 20 (5-40) units/L ALT 14 (7-56) units/L Alkaline Phosphatase 183 H (35-129) units/L Troponin T < 0.010 (0.00-0.029) ng/mL Total Protein 6.6 (6.3-8.2) g/dL Albumin 3.1 L (3.9-5) g/dL Albumin/Globulin Ratio 0.9 % 10/29/20 10/29/20 Range/Units 18:07 20:54 WBC (4.5-11.0) K/mm3 RBC (3.65-5.03) M/mm3 Hgb (10.1-14.3) gm/dl Hct (30.3-42.9) % MCV (79-97) fl MCH (28-32) pg MCHC (30-34) % RDW (13.2-15.2) % Plt Count (140-440) K/mm3 Add Manual Diff Total Counted Seg Neutrophils % Seg Neuts % (Manual) (40.0-70.0) % Band Neutrophils % % Lymphocytes % (Manual) (13.4-35.0) % Monocytes % (Manual) (0.0-7.3) % Nucleated RBC % Seg Neutrophils # Man (1.8-7.7) K/mm3 Band Neutrophils # K/mm3 Lymphocytes # (Manual) (1.2-5.4) K/mm3 Abs React Lymphs (Man) K/mm3 Monocytes # (Manual) (0.0-0.8) K/mm3 Eosinophils # (Manual) (0.0-0.4) K/mm3 Basophils # (Manual) (0.0-0.1) K/mm3 Metamyelocytes # K/mm3 Myelocytes # K/mm3 Promyelocytes # K/mm3 Blast Cells # K/mm3 WBC Morphology Hypersegmented Neuts Hyposegmented Neuts Hypogranular Neuts Smudge Cells Toxic Granulation Toxic Vacuolation Dohle Bodies Pelger-Huet Anomaly Steffi Rods Platelet Estimate Clumped Platelets Plt Clumps, EDTA Large Platelets Giant Platelets Platelet Satelliting Plt Morphology Comment RBC Morphology Dimorphic RBCs Polychromasia Hypochromasia Poikilocytosis Anisocytosis Microcytosis Macrocytosis Spherocytes Pappenheimer Bodies Sickle Cells Target Cells Tear Drop Cells Ovalocytes Helmet Cells Currie-Philip Bodies [place] Rings [place] Cells Bite Cells Crenated Cell Elliptocytes Acanthocytes (Spur) Rouleaux Hemoglobin C Crystals Schistocytes Malaria parasites Guy Bodies Hem Pathologist Commnt VBG pH 7.405 (7.320-7.420) Sodium (137-145) mmol/L Potassium (3.6-5.0) mmol/L Chloride (98-107) mmol/L Carbon Dioxide (22-30) mmol/L Anion Gap mmol/L BUN (7-17) mg/dL Creatinine (0.6-1.2) mg/dL Estimated GFR ml/min BUN/Creatinine Ratio % Glucose (65-100) mg/dL POC Glucose (70-105) mg/dL Ketones Quantitative (Negative) Lactic Acid 1.50 (0.7-2.0) mmol/L Calcium (8.4-10.2) mg/dL Total Bilirubin (0.1-1.2) mg/dL AST (5-40) units/L ALT (7-56) units/L Alkaline Phosphatase (35-129) units/L Troponin T (0.00-0.029) ng/mL Total Protein (6.3-8.2) g/dL Albumin (3.9-5) g/dL Albumin/Globulin Ratio % - EKG Data -: EKG Interpreted by Wy - EKG Data 10/29/20 21:55 Sinus tachycardia. Normal axis. Normal intervals. Occasional PVCs. No significant ST segment or T wave abnormalities. - Radiology Data CHEST 2 VIEWS INDICATION / CLINICAL INFORMATION: Fever, chills for 4 days. COMPARISON: One view of the chest from 06/05/2020. FINDINGS: SUPPORT DEVICES: None. HEART / MEDIASTINUM: No significant abnormality. LUNGS / PLEURA: No significant pulmonary abnormality. No significant pleural effusion. No pneumothorax. ADDITIONAL FINDINGS: No significant additional findings. IMPRESSION: 1. No acute abnormality of the chest. Signer Name: Kevan Clarke MD Signed: 10/29/2020 5:25 PM Workstation Name: [email or web address] NUCLEAR MEDICINE PERFUSION LUNG SCAN INDICATION / CLINICAL INFORMATION: elevated d-dimer. TECHNIQUE: 5.0 mCi of Tc-99m MAA were given by IV. COMPARIS ON: Chest radiograph from the same date. FINDINGS: PERFUSION: No significant perfusion defects. ADDITIONAL FINDINGS: None. IMPRESSION: 1. Low probability for pulmonary embolism. Signer Name: Tobi Milner MD Signed: 10/29/2020 9:06 PM Workstation Name: [id number] CT CHEST, ABDOMEN, AND PELVIS WITHOUT CONTRAST INDICATION: Sepsis, decreased urinary output. TECHNIQUE: Axial CT images were obtained through the chest, abdomen, and pelvis without contrast. All CT scans at this location are performed using CT dose reduction for ALARA by means of automated exposure control. COMPARISON: One view of the chest performed earlier today. Abdominal radiographs from 06/09/2020. CTA chest from 06/07/2020. FINDINGS: HEART: No significant abnormality. THORACIC AORTA AND ARTERIES: The aorta is normal in caliber with mild atherosclerosis seen along the aorta and great vessels. No other significant abnormality. MEDIASTINUM and VINOD: The esophagus is mildly dilated and contains previously ingested contents along the distal half of its course. No mass or lymphadenopathy. No other significant abnormality. LUNGS: No suspicious nodule, mass or consolidation. PLEURA: No significant pleural effusi on. No pneumothorax. LIVER: No significant abnormality. GALLBLADDER: Surgically absent. BILE DUCTS: No significant abnormality. PANCREAS: No significant abnormality. SPLEEN: No significant abnormality. ADRENALS: No significant abnormality. RIGHT KIDNEY and URETER: A probable right lower renal pole cyst measures 1.5 cm on image 49 of series 3. There is nonspecific moderate right perinephric fat stranding. No other significant abnormality. LEFT KIDNEY and URETER: There is nonspecific mild left perinephric fat stranding without other significant abnormalities. STOMACH and SMALL BOWEL: No significant abnormality. COLON: No significant abnormality. APPENDIX: No significant abnormality. PERITONEUM: No free fluid. No free air. No fluid collection. LYMPH NODES: No significant adenopathy. ABDOMINAL AORTA and ARTERIES: The aorta is normal in caliber with moderate generalized atherosclerosis. IVC and VEINS: No significant abnormality. URINARY BLADDER: No significant abnormality. REPRODUCTIVE ORGANS: Prior hysterectomy. No significant adnexal abnormality. ADDITIONAL FINDINGS: None. BONES: No acute findings. There are mild degenerative changes throughout the spine. IMPRESSION: 1. No acute abnormality of the chest, abdomen or pelvis. 2. Abnormal appearance of the esophagus as above could represent gastroesophageal reflux. 3. Nonspecific bilateral perinephric fat stranding could be due to renal insufficiency. Please correlate with the clinical findings. 4. Additional findings as above. Signer Name: Kevan Clarke MD Signed: 10/29/2020 8:08 PM Workstation Name: [id number] - Medical Decision Making 64-year-old female presents complaining of 4 days of fever/chills. No other symptoms for the past 2 days other than generalized nausea and lightheadedness/dizziness without room spinning. First 2 days consisted of the patient having generalized abdominal pain and vomiting/diarrhea. On initial assessment, the patient is noted to be febrile with a temperature of 103.1. She is severely tachycardic with a heart rate of 144. On physical examination she has very dry mucous membranes. Lungs are clear to auscultation. The abdomen is slightly distended but soft and nontender. She has a nonfocal neurologic exam and is ANO x4. Full sepsis order set was initiated with labs/cultures, chest x- ray, EKG. I will give 30 mL/kg of normal saline as well as broad-spectrum cefepime/vancomycin. Labs have partially resulted and reveal no significant leukocytosis or anemia. BMP reveals several abnormalities including ANDRE with creatinine of 2.0 and BUN of 63 as well as sodium of 127. CT of the chest/abdomen/pelvis reveals no significant abnormalities within the chest and the only finding identified within the abdomen pelvis is bilateral perinephric fat stranding which could represent pyelonephritis. Urinalysis is still pending. Nonetheless, given her hyponatremia and ANDRE she will need to be admitted for further management. Urinalysis has resulted in reveals findings consistent with urinary tract infection/pyelonephritis. Patient is already been covered with the appropriate antibiotics. I spoke with Dr. Nair who accepts the patient for admission and will assume care. The patient's vital signs have remained stable. Critical Care Time: Yes (35 mins) Critical care time in (mins) excluding proc time.: 35 Critical care attestation.: If time is entered above; I have spent that time in minutes in the direct care of this critically ill patient, excluding procedure time. Critical care time was spent in the evaluation/assessment and management of sepsis, hyponatremia, and acute renal insufficiency requiring initiation of broad-spectrum IV antibiotics and IV fluids as well as close observation and frequent reassessment. ED Disposition Clinical Impression: Sepsis, ANDRE (acute kidney injury), Pyelonephritis, Hyponatremia, Diabetes mellitus Disposition: OP ADMIT IP TO THIS HOSP Is pt being admited?: Yes Condition: Serious
[2020-10-29 20:18] LABS: Total Cells Counted 100
[2020-10-29 20:19] LABS: Band Neutrophils # (Manual) 0.4 K/mm3; Platelet Clumps Rare; Platelet Estimate Consistent w Auto; RBC Morphology Normal
[2020-10-29] MEDS ORDERED: VANCOMYCIN 1,500 MG in SODIUM CHLORIDE 0.9% 500 ML 500 ML IV ONE (20:30)
[2020-10-29] MEDS ORDERED: SODIUM CHLORIDE 0.9% 1000 ML 1,000 ML ONE ×2 (20:39→22:02)
[2020-10-29] MEDS: CEFEPIME/NS 2 GM/100 ML 2 GM/100 ML BAG IV SCH (20:50)
[2020-10-29] MEDS: ACETAMINOPHEN 325 MG TAB PO PRN (20:52)
--- NOTE | 2020-10-29 21:12 | Cat Scan Report ---
CT CHEST, ABDOMEN, AND PELVIS WITHOUT CONTRAST INDICATION: Sepsis, decreased urinary output. TECHNIQUE: Axial CT images were obtained through the chest, abdomen, and pelvis without contrast. All CT scans a t this location are performed using CT dose reduction for ALARA by means of automated exposure contro l. COMPARISON: One view of the chest performed earlier today. Abdominal radiographs from 06/09/2020. CTA chest from . FINDINGS: HEART: No significant abnormality. THORACIC AORTA AND ARTERIES: The aorta is normal in caliber with mild atherosclerosis seen along the aorta and great vessels. No other significant abnormality. MEDIASTINUM and VINOD: The esophagus is mildly dilated and contains previously ingested contents along the distal half of its course. No mass or lymphadenopathy. No other significant abnormality. LUNGS: No suspicious nodule, mass or consolidation. PLEURA: No significant pleural effusion. No pneumothorax. LIVER: No significant abnormality. GALLBLADDER: Surgically absent. BILE DUCTS: No significant abnormality. PANCREAS: No significant abnormality. SPLEEN: No significant abnormality. ADRENALS: No significant abnormality. RIGHT KIDNEY and URETER: A probable right lower renal pole cyst measures 1.5 cm on image 49 of series 3. There is nonspecific moderate right perinephric fat stranding. No other significant abnormality. LEFT KIDNEY and URETER: There is nonspecific mild left perinephric fat stranding without other signif icant abnormalities. STOMACH and SMALL BOWEL: No significant abnormality. COLON: No significant abnormality. APPENDIX: No significant abnormality. PERITONEUM: No free fluid. No free air. No fluid collection. LYMPH NODES: No significant adenopathy. ABDOMINAL AORTA and ARTERIES: The aorta is normal in caliber with moderate generalized atherosclerosi s. IVC and VEINS: No significant abnormality. URINARY BLADDER: No significant abnormality. REPRODUCTIVE ORGANS: Prior hysterectomy. No significant adnexal abnormality. ADDITIONAL FINDINGS: None. BONES: No acute findings. There are mild degenerative changes throughout the spine. IMPRESSION: 1. No acute abnormality of the chest, abdomen or pelvis. 2. Abnormal appearance of the esophagus as above could represent gastroesophageal reflux. 3. Nonspecific bilateral perinephric fat stranding could be due to renal insufficiency. Please correl ate with the clinical findings. 4. Additional findings as above. Signer Name: Kevan Clarke MD Signed: 10/29/2020 9:08 PM Workstation Name: [id number]
--- NOTE | 2020-10-29 22:11 | Nuclear Medicine Report ---
NUCLEAR MEDICINE PERFUSION LUNG SCAN INDICATION / CLINICAL INFORMATION: elevated d-dimer. TECHNIQUE: 5.0 mCi of Tc-99m MAA were given by IV. COMPARISON: Chest radiograph from the same date. FINDINGS: PERFUSION: No significant perfusion defects. ADDITIONAL FINDINGS: None. IMPRESSION: 1. Low probability for pulmonary embolism. Signer Name: Tobi Milner MD Signed: 10/29/2020 10:06 PM Workstation Name: [id number]
[2020-10-29] MEDS ORDERED: MORPHINE 2 MG/1 ML INJ IV PRN (22:22)
[2020-10-29] MEDS ORDERED: ONDANSETRON 4 MG/2 ML INJ IV PRN (22:22)
[2020-10-29] MEDS ORDERED: MAGNESIUM HYDROXIDE (MOM) ORAL LIQD UDC PO PRN (22:22)
[2020-10-29] MEDS ORDERED: DEXTROSE 50% IN WATER (25GM) 50 ML SYRINGE IV PRN (22:22)
--- NOTE | 2020-10-29 22:33 | History and Physical Report ---
History of Present Illness Date of examination: 10/29/20 Date of admission: 10/29/20 21:46 Chief complaint: Fever & Chills Nausea ,Vomiting and Diarrhea. History of present illness: 64-year-old female with known history of hypertension and diabetes mellitus presenting to the emergency room today complaining of fever and chills which has been ongoing for the past 4 days. She also has been having some abdominal discomfort especially in the lower abdomen over the past 2 days. She has been having nausea and vomiting but denies any diarrhea. She denies any hematuria or dysuria. No chest pain or shortness of breath, no headache or dizziness. Denies any diaphoresis. Patient denies any sick contacts and no recent travel. Denies any contact with anyone with COVID-19. Upon arrival in the emergency room, patient was found to be tachycardic with heart rate in the 140s, temperature of 103.1 F. Work-up in the emergency room reveals urinary tract infection and hyponatremia. Patient is being admitted with UTI and hyponatremia. Past History Past Medical History: diabetes, hypertension Past Surgical History: Other (Bladder surgery) Social history: no significant social history Family history: no significant family history Medications and Allergies Allergies Allergy/AdvReac Type Severity Reaction Status Date / Time sunflower seed Allergy Anaphylaxis Verified 06/05/20 16:53 Home Medications Medication Instructions Recorded Confirmed Last Taken Type Apixaban [Eliquis] 5 mg PO Q12HR #14 tablet 06/10/20 Unknown Rx Ascorbic Acid [Vitamin C] 1,000 mg PO BID #14 tablet 06/10/20 Unknown Rx Cholecalciferol (Vitamin D3) 5,000 unit PO DAILY #7 tablet 06/10/20 Unknown Rx [Vitamin D3] Insulin Glargine [Lantus VIAL] 30 units SUB-Q QAMDIAB #1 vial 06/10/20 Unknown Rx Lispro Insulin [HumaLOG] 0 unit SUB-Q ACHS #1 vial 06/10/20 Unknown Rx Lispro Insulin [HumaLOG] 12 unit SUB-Q AC #1 vial 06/10/20 Unknown Rx Metoprolol [Lopressor TAB] 12.5 mg PO BID #30 tablet 06/10/20 Unknown Rx Zinc Sulfate 220 mg PO BID #14 capsule 06/10/20 Unknown Rx dexAMETHasone [Decadron] 6 mg PO DAILY #5 tablet 06/10/20 Unknown Rx Active Meds: Active Medications Acetaminophen (Acetaminophen 325 Mg Tab) 650 mg PO Q6H PRN PRN Reason: Pain, Mild (1-3) Last Admin: 10/29/20 20:52 Dose: 650 mg Documented by: Dextrose (Dextrose 50% In Water (25gm) 50 Ml Syringe) 50 ml IV Q30MIN PRN; Protocol PRN Reason: Hypoglycemia Cefepime HCl (Cefepime/Ns 2 Gm/100 Ml) 2 gm in 100 mls @ 200 mls/hr IV Q12H BRIAN; Protocol Last Admin: 10/29/20 20:50 Dose: 200 mls/hr Documented by: Sodium Chloride (Nacl 0.9% 1000 Ml) 1,000 mls @ 125 mls/hr IV DIRECT BRIAN Insulin Human Lispro (Insulin Lispro 100 Unit/Ml) 0 unit SUB-Q ACHS BRIAN; Protocol Magnesium Hydroxide (Magnesium Hydroxide (Mom) Oral Liqd Udc) 30 ml PO Q4H PRN PRN Reason: Constipation Morphine Sulfate (Morphine 2 Mg/1 Ml Inj) 2 mg IV Q4H PRN PRN Reason: Pain, Moderate (4-6) Ondansetron HCl (Ondansetron 4 Mg/2 Ml Inj) 4 mg IV Q8H PRN PRN Reason: Nausea And Vomiting Sodium Chloride (Sodium Chloride 0.9% 10 Ml Flush Syringe) 10 ml IV BID BRIAN Sodium Chloride (Sodium Chloride 0.9% 10 Ml Flush Syringe) 10 ml IV PRN PRN PRN Reason: LINE FLUSH Review of Systems Constitutional: fever, chills Ears, nose, mouth and throat: no nasal congestion, no sore throat Cardiovascular: no chest pain, no palpitations Respiratory: no cough, no shortness of breath Gastrointestinal: nausea, vomiting, diarrhea, no abdominal pain Genitourinary Female: no dysuria, no hematuria Musculoskeletal: no neck pain, no low back pain Integumentary: no rash, no pruritis Neurological: no headaches, no confusion Psychiatric: no anxiety, no depression Endocrine: no polyuria, no nocturia Exam - Constitutional Vitals: Temp Pulse Resp BP Pulse Ox 103.1 F H 112 H 20 128/74 98 10/29/20 18:02 10/29/20 19:47 10/29/20 19:47 10/29/20 18:02 10/29/20 19:47 General appearance: Present: no acute distress, well-nourished - EENT Eyes: Present: PERRL, EOM intact. Absent: scleral icterus ENT: hearing intact, clear oral mucosa, dentition normal - Neck Neck: Present: supple, normal ROM - Respiratory Respiratory effort: normal Respiratory: bilateral: CTA - Cardiovascular Rhythm: regular Heart Sounds: Present: S1 & S2. Absent: gallop, systolic murmur, diastolic murmur, rub, click - Extremities Extremities: no ischemia, pulses intact, pulses symmetrical, No edema, normal temperature, normal color, Full ROM Peripheral Pulses: within normal limits - Abdominal General gastrointestinal: Present: soft, non-tender, non-distended, normal bowel sounds. Absent: mass - Integumentary Integumentary: Present: clear, warm, dry, normal turgor. Absent: rash - Musculoskeletal Musculoskeletal: strength equal bilaterally - Psychiatric Psychiatric: appropriate mood/affect, intact judgment & insight, memory intact, cooperative - Neurologic Neurologic: CNII-XII intact, no focal deficits, moves all extremities HEART Score - HEART Score Troponin: Troponin T < 0.010 ng/mL (0.00-0.029) 10/29/20 18:07 Troponin T < 0.010 ng/mL (0.00-0.029) 10/29/20 18:07 Results - Labs CBC & Chem 7: 10/29/20 18:07 10/29/20 18:07 Labs: Abnormal lab results 10/29/20 10/29/20 10/29/20 Range/Units 18:02 18:07 18:07 Seg Neuts % (Manual) 90.0 H (40.0-70.0) % Lymphocytes % (Manual) 2.0 L (13.4-35.0) % Lymphocytes # (Manual) 0.1 L (1.2-5.4) K/mm3 Sodium 127 L (137-145) mmol/L Chloride 95.4 L (98-107) mmol/L Carbon Dioxide 17 L (22-30) mmol/L BUN 63 H (7-17) mg/dL Creatinine 2.0 H (0.6-1.2) mg/dL Glucose 240 H (65-100) mg/dL POC Glucose 230 H (70-105) mg/dL Calcium 8.1 L (8.4-10.2) mg/dL Alkaline Phosphatase 183 H (35-129) units/L Albumin 3.1 L (3.9-5) g/dL Assessment and Plan - Patient Problems (1) UTI (urinary tract infection) Current Visit: No Status: Acute Plan to address problem: Patient placed on empiric IV antibiotics. We will await urine culture results. (2) Sepsis Current Visit: Yes Status: Acute Plan to address problem: Possibly secondary to the UTI. Continue on IV fluid and antibiotics. (3) Hypertension Current Visit: Yes Status: Acute Plan to address problem: We will resume routine home medications once reconciled and monitor vital signs closely. (4) Diabetes mellitus Current Visit: Yes Status: Acute Plan to address problem: We will monitor Accu-Cheks. (5) DVT prophylaxis Current Visit: No Status: Acute Plan to address problem: Patient placed on subcutaneous heparin. (6) Full code status Current Visit: No Status: Acute Plan to address problem: Patient is a full code.
[2020-10-29] MEDS ORDERED: VANCOMYCIN PHARMACY TO DOSE IV SCH (23:00)
[2020-10-30 01:00] LABS: Bacteria,Urine 1+ /HPF (Negative); Bilirubin,Urine NEG (Negative); Blood,Urine MOD (Negative); Color,Urine Yellow (Yellow); Mucus,Urine FEW /HPF; Protein,Urine >500 mg/dL (Negative); Urobilinogen,Urine < 2.0 mg/dL (<2.0)
[2020-10-30] MEDS: CEFEPIME/NS 2 GM/100 ML 2 GM/100 ML BAG IV SCH (06:04)
[2020-10-30] MEDS: SODIUM CHLORIDE 0.9% 1000 ML 1,000 ML IV SCH ×2 (06:04→22:29)
[2020-10-30 06:54] LABS: Basophils % (Auto) 0.1 % (0.0-1.8); Eosinophils % (Auto) 0.3 % (0.0-4.3); Hematocrit 30.1 % (30.3-42.9); Hemoglobin 9.8 gm/dl (10.1-14.3); Lymphocytes # (Auto) 1.2 K/mm3 (1.2-5.4); Lymphocytes % (Auto) 10.7 % (13.4-35.0); Mean Corpuscular HGB Conc 32 % (30-34); Mean Corpuscular Volume 84 fl (79-97); Monocytes # (Auto) 0.7 K/mm3 (0.0-0.8); Platelet Count 179 K/mm3 (140-440); Red Cell Distribution Width 14.6 % (13.2-15.2)
[2020-10-30 07:04] LABS: INR 0.99 (0.87-1.13)
[2020-10-30 07:12] LABS: Calcium 8.2 mg/dL (8.4-10.2)
[2020-10-30] MEDS: INSULIN LISPRO 100 UNIT/ML SUB-Q SCH ×4 (09:05→22:26)
--- NOTE | 2020-10-30 10:00 | Progress Note ---
Assessment and Plan Assessment and plan: -- UTI (urinary tract infection) Current Visit: No Status: Acute Patient placed on empiric IV antibiotics. We will await urine culture results. --Sepsis secondary to UTI Current Visit: Yes Status: Acute Fever, leukocytosis, tachycardia, UTI possibly secondary to the UTI. Continue on IV fluid and antibiotics. --Acute versus acute on chronic kidney disease; Current Visit: Yes Status: Acute Vasomotor nephropathy, closely monitor renal function Avoid nephrotoxins, nephrology consulted Gentle hydration --Hypertension Current Visit: Yes Status: Acute We will resume home medications once reconciled and monitor vital signs closely. --Hyperglycemia/diabetes mellitus --Current Visit: Yes Status: Acute We will monitor Accu-Cheks. --DVT prophylaxis Current Visit: No Status: Acute Patient placed on subcutaneous heparin. --Obesity; BMI 33.3 Current Visit: No Status: Acute. Patient needs weight reduction Diet modification exercise as tolerated and weight reduction When medically stable -- Full code status Patient is a full code. We will closely monitor patient and adjust management as needed Plan of care reviewed with the patient and her nurse nurse Follow nephrology evaluation recommendations Brief history; Admitted with fever chills, noted to be in sepsis secondary to UTI On antibiotics, follow cultures, ID nephrology following Possible discharge in 1 to 2 days if stable History Interval history: I have seen and examined the patient at the bedside Chart and medications reviewed Sepsis secondary to UTI vital signs noted Febrile mild distress Hospitalist Physical - Constitutional Vitals: Temp Pulse Resp BP Pulse Ox 97.6 F 90 18 130/67 99 10/30/20 04:54 10/30/20 04:54 10/30/20 04:54 10/30/20 04:54 10/30/20 04:54 General appearance: Present: no acute distress, well-nourished - EENT Eyes: Present: PERRL, scleral icterus - Neck Neck: Present: supple, normal ROM - Respiratory Respiratory: bilateral: CTA, rales, negative: diminished, rhonchi - Cardiovascular Rhythm: regular Heart Sounds: Present: S1 & S2 - Extremities Extremities: no ischemia, No edema - Abdominal General gastrointestinal: soft, non-tender, non-distended, normal bowel sounds - Integumentary Integumentary: Present: clear, warm - Psychiatric Psychiatric: appropriate mood/affect - Neurologic Neurologic: moves all extremities HEART Score - HEART Score Troponin: Troponin T < 0.010 ng/mL (0.00-0.029) 10/29/20 18:07 Troponin T < 0.010 ng/mL (0.00-0.029) 10/29/20 18:07 Results - Labs CBC & Chem 7: 10/30/20 05:19 10/30/20 05:19 Labs: Laboratory Last Values WBC 11.1 K/mm3 (4.5-11.0) H 10/30/20 05:19 RBC 3.60 M/mm3 (3.65-5.03) L 10/30/20 05:19 Hgb 9.8 gm/dl (10.1-14.3) L 10/30/20 05:19 Hct 30.1 % (30.3-42.9) L 10/30/20 05:19 MCV 84 fl (79-97) 10/30/20 05:19 MCH 27 pg (28-32) L 10/30/20 05:19 MCHC 32 % (30-34) 10/30/20 05:19 RDW 14.6 % (13.2-15.2) 10/30/20 05:19 Plt Count 179 K/mm3 (140-440) 10/30/20 05:19 Lymph % (Auto) 10.7 % (13.4-35.0) L 10/30/20 05:19 Lewis % (Auto) 6.0 % (0.0-7.3) 10/30/20 05:19 Eos % (Auto) 0.3 % (0.0-4.3) 10/30/20 05:19 Baso % (Auto) 0.1 % (0.0-1.8) 10/30/20 05:19 Lymph # (Auto) 1.2 K/mm3 (1.2-5.4) 10/30/20 05:19 Lewis # (Auto) 0.7 K/mm3 (0.0-0.8) 10/30/20 05:19 Eos # (Auto) 0.0 K/mm3 (0.0-0.4) 10/30/20 05:19 Baso # (Auto) 0.0 K/mm3 (0.0-0.1) 10/30/20 05:19 Add Manual Diff Complete 10/29/20 18:07 Total Counted 100 10/29/20 18:07 Seg Neutrophils % 82.9 % (40.0-70.0) H 10/30/20 05:19 Seg Neuts % (Manual) 90.0 % (40.0-70.0) H 10/29/20 18:07 Band Neutrophils % 5.0 % 10/29/20 18:07 Lymphocytes % (Manual) 2.0 % (13.4-35.0) L 10/29/20 18:07 Monocytes % (Manual) 3.0 % (0.0-7.3) 10/29/20 18:07 Nucleated RBC % Not Reportable 10/29/20 18:07 Seg Neutrophils # 9.2 K/mm3 (1.8-7.7) H 10/30/20 05:19 Seg Neutrophils # Man 6.5 K/mm3 (1.8-7.7) 10/29/20 18:07 Band Neutrophils # 0.4 K/mm3 10/29/20 18:07 Lymphocytes # (Manual) 0.1 K/mm3 (1.2-5.4) L 10/29/20 18:07 Abs React Lymphs (Man) 0.0 K/mm3 10/29/20 18:07 Monocytes # (Manual) 0.2 K/mm3 (0.0-0.8) 10/29/20 18:07 Eosinophils # (Manual) 0.0 K/mm3 (0.0-0.4) 10/29/20 18:07 Basophils # (Manual) 0.0 K/mm3 (0.0-0.1) 10/29/20 18:07 Metamyelocytes # 0.0 K/mm3 10/29/20 18:07 Myelocytes # 0.0 K/mm3 10/29/20 18:07 Promyelocytes # 0.0 K/mm3 10/29/20 18:07 Blast Cells # 0.0 K/mm3 10/29/20 18:07 WBC Morphology Not Reportable 10/29/20 18:07 Hypersegmented Neuts Not Reportable 10/29/20 18:07 Hyposegmented Neuts Not Reportable 10/29/20 18:07 Hypogranular Neuts Not Reportable 10/29/20 18:07 Smudge Cells Not Reportable 10/29/20 18:07 Toxic Granulation Not Reportable 10/29/20 18:07 Toxic Vacuolation Not Reportable 10/29/20 18:07 Dohle Bodies Not Reportable 10/29/20 18:07 Pelger-Huet Anomaly Not Reportable 10/29/20 18:07 Steffi Rods Not Reportable 10/29/20 18:07 Platelet Estimate Consistent w auto 10/29/20 18:07 Clumped Platelets Rare 10/29/20 18:07 Plt Clumps, EDTA Not Reportable 10/29/20 18:07 Large Platelets Not Reportable 10/29/20 18:07 Giant Platelets Not Reportable 10/29/20 18:07 Platelet Satelliting Not Reportable 10/29/20 18:07 Plt Morphology Comment Not Reportable 10/29/20 18:07 RBC Morphology Normal 10/29/20 18:07 Dimorphic RBCs Not Reportable 10/29/20 18:07 Polychromasia Not Reportable 10/29/20 18:07 Hypochromasia Not Reportable 10/29/20 18:07 Poikilocytosis Not Reportable 10/29/20 18:07 Anisocytosis Not Reportable 10/29/20 18:07 Microcytosis Not Reportable 10/29/20 18:07 Macrocytosis Not Reportable 10/29/20 18:07 Spherocytes Not Reportable 10/29/20 18:07 Pappenheimer Bodies Not Reportable 10/29/20 18:07 Sickle Cells Not Reportable 10/29/20 18:07 Target Cells Not Reportable 10/29/20 18:07 Tear Drop Cells Not Reportable 10/29/20 18:07 Ovalocytes Not Reportable 10/29/20 18:07 Helmet Cells Not Reportable 10/29/20 18:07 [place] Bodies Not Reportable 10/29/20 18:07 [place] Rings Not Reportable 10/29/20 18:07 [place] Cells Not Reportable 10/29/20 18:07 Bite Cells Not Reportable 10/29/20 18:07 Crenated Cell Not Reportable 10/29/20 18:07 Elliptocytes Not Reportable 10/29/20 18:07 Acanthocytes (Spur) Not Reportable 10/29/20 18:07 Rouleaux Not Reportable 10/29/20 18:07 Hemoglobin C Crystals Not Reportable 10/29/20 18:07 Schistocytes Not Reportable 10/29/20 18:07 Malaria parasites Not Reportable 10/29/20 18:07 Guy Bodies Not Reportable 10/29/20 18:07 Hem Pathologist Commnt No 10/29/20 18:07 PT 13.7 Sec. (12.2-14.9) 10/30/20 05:19 INR 0.99 (0.87-1.13) 10/30/20 05:19 VBG pH 7.405 (7.320-7.420) 10/29/20 18:07 Sodium 134 mmol/L (137-145) L D 10/30/20 05:19 Potassium 4.1 mmol/L (3.6-5.0) 10/30/20 05:19 Chloride 99.9 mmol/L (98-107) 10/30/20 05:19 Carbon Dioxide 19 mmol/L (22-30) L 10/30/20 05:19 Anion Gap 19 mmol/L 10/30/20 05:19 BUN 63 mg/dL (7-17) H 10/30/20 05:19 Creatinine 2.1 mg/dL (0.6-1.2) H 10/30/20 05:19 Estimated GFR 24 ml/min 10/30/20 05:19 BUN/Creatinine Ratio 30 % 10/30/20 05:19 Glucose 216 mg/dL (65-100) H 10/30/20 05:19 POC Glucose 207 mg/dL (70-105) H 10/30/20 09:04 Ketones Quantitative Negative (Negative) 10/29/20 18:07 Lactic Acid 1.50 mmol/L (0.7-2.0) 10/29/20 20:54 Calcium 8.2 mg/dL (8.4-10.2) L 10/30/20 05:19 Total Bilirubin 0.40 mg/dL (0.1-1.2) 10/29/20 18:07 AST 20 units/L (5-40) 10/29/20 18:07 ALT 14 units/L (7-56) 10/29/20 18:07 Alkaline Phosphatase 183 units/L (35-129) H 10/29/20 18:07 Troponin T < 0.010 ng/mL (0.00-0.029) 10/29/20 18:07 Troponin T < 0.010 ng/mL (0.00-0.029) 10/29/20 18:07 Total Protein 6.6 g/dL (6.3-8.2) 10/29/20 18:07 Albumin 3.1 g/dL (3.9-5) L 10/29/20 18:07 Albumin/Globulin Ratio 0.9 % 10/29/20 18:07 Urine Color Yellow (Yellow) 10/30/20 Unknown Urine Turbidity Slightly-cloudy (Clear) 10/30/20 Unknown Urine pH 7.0 (5.0-7.0) 10/30/20 Unknown Ur Specific [place] 1.011 (1.003-1.030) 10/30/20 Unknown Urine Protein >500 mg/dL (Negative) 10/30/20 Unknown Urine Glucose (UA) 150 mg/dL (Negative) 10/30/20 Unknown Urine Ketones Neg mg/dL (Negative) 10/30/20 Unknown Urine Blood Mod (Negative) 10/30/20 Unknown Urine Nitrite Neg (Negative) 10/30/20 Unknown Urine Bilirubin Neg (Negative) 10/30/20 Unknown Urine Urobilinogen < 2.0 mg/dL (<2.0) 10/30/20 Unknown Ur Leukocyte Esterase Lg (Negative) 10/30/20 Unknown Urine WBC (Auto) 145.0 /HPF (0.0-6.0) H 10/30/20 Unknown Urine RBC (Auto) 17.0 /HPF (0.0-6.0) 10/30/20 Unknown U Epithel Cells (Auto) 12.0 /HPF (0-13.0) 10/30/20 Unknown Urine Bacteria (Auto) 1+ /HPF (Negative) 10/30/20 Unknown Ur Transition Epith Cell 3 /HPF 10/30/20 Unknown Urine Mucus Few /HPF 10/30/20 Unknown Microbiology: Microbiology 10/29/20 18:12 Peripheral/Venous Blood Culture - Preliminary Culture in Progress 10/29/20 18:07 Peripheral/Venous Blood Culture - Preliminary Culture in Progress Ritchie/IV: Voiding Method Toilet Active Medications - Current Medications Current Medications: Generic Name Dose Route Start Last Admin Trade Name Freq PRN Reason Stop Dose Admin Acetaminophen 650 mg 10/29/20 18:16 10/29/20 20:52 Acetaminophen 325 Mg Tab PO 650 mg Q6H PRN Administration Pain, Mild (1-3) Dextrose 50 ml 10/29/20 22:22 Dextrose 50% In Water (25gm) 50 Ml Syringe IV Q30MIN PRN Hypoglycemia Protocol Sodium Chloride 1,000 mls @ 125 mls/hr 10/29/20 22:30 10/30/20 06:04 Nacl 0.9% 1000 Ml IV 125 mls/hr DIRECT BRIAN Administration Cefepime HCl 2 gm in 100 mls @ 200 mls/hr 10/31/20 08:00 Cefepime/Ns 2 Gm/100 Ml IV Q24H BRIAN Protocol Insulin Human Lispro 0 unit 10/30/20 07:30 10/30/20 09:05 Insulin Lispro 100 Unit/Ml SUB-Q 3 unit ACHS BRIAN Administration Protocol Magnesium Hydroxide 30 ml 10/29/20 22:22 Magnesium Hydroxide (Mom) Oral Liqd Udc PO Q4H PRN Constipation Morphine Sulfate 2 mg 10/29/20 22:22 Morphine 2 Mg/1 Ml Inj IV Q4H PRN Pain, Moderate (4-6) Ondansetron HCl 4 mg 10/29/20 22:22 Ondansetron 4 Mg/2 Ml Inj IV Q8H PRN Nausea And Vomiting Sodium Chloride 10 ml 10/30/20 10:00 10/30/20 09:06 Sodium Chloride 0.9% 10 Ml Flush Syringe IV 10 ml BID BRIAN Administration Sodium Chloride 10 ml 10/29/20 22:22 Sodium Chloride 0.9% 10 Ml Flush Syringe IV PRN PRN LINE FLUSH
[2020-10-30] MEDS: ACETAMINOPHEN 325 MG TAB PO PRN ×3 (11:02→22:28)
--- NOTE | 2020-10-30 13:05 | Consultation ---
History of Present Illness - Reason for Consult Consult date: 10/30/20 sepsis Requesting physician: JOHN GROSS - History of Present Illness The patient is a 64-year-old female with diabetes, hypertension was admitted to the hospital with fever, chills in addition to nausea, vomiting and diarrhea. Nominal pain was mainly in the lower abdominal region going on for about 2 days. Upon evaluation in the ER, she was found to be septic with a T-max of 103.1 F, tachycardia, lab findings showing leukocytosis. Creatinine elevated, UA showed pyuria. CT chest, abdomen and pelvis did not reveal any acute abnormality in the lungs, showed bilateral perinephric fat stranding. Feeling slightly better. Review of Systems: General: Fever HEENT: no new visual disturbance Respiratory: No cough, sputum, hemoptysis or shortness of breath Cardiovascular: No chest pain, syncope Gastrointestinal: As above Genitourinary: As above Musculoskeletal: No new or worsening neck pain or back pain Neurologic: No headaches, seizures Hematologic: No easy bruising or bleeding Endocrine: No night sweats or acute weight loss Skin: negative for rash, jaundice Psychiatric: No suicidal or homicidal ideation Past History Past Medical History: diabetes, hypertension Past Surgical History: Other (Bladder surgery) Social history: no significant social history Family history: no significant family history Medications and Allergies Allergies Allergy/AdvReac Type Severity Reaction Status Date / Time sunflower seed Allergy Anaphylaxis Verified 06/05/20 16:53 Home Medications Medication Instructions Recorded Confirmed Last Taken Type Apixaban [Eliquis] 5 mg PO Q12HR #14 tablet 06/10/20 Unknown Rx Ascorbic Acid [Vitamin C] 1,000 mg PO BID #14 tablet 06/10/20 Unknown Rx Cholecalciferol (Vitamin D3) 5,000 unit PO DAILY #7 tablet 06/10/20 Unknown Rx [Vitamin D3] Insulin Glargine [Lantus VIAL] 30 units SUB-Q QAMDIAB #1 vial 06/10/20 Unknown Rx Lispro Insulin [HumaLOG] 0 unit SUB-Q ACHS #1 vial 06/10/20 Unknown Rx Lispro Insulin [HumaLOG] 12 unit SUB-Q AC #1 vial 06/10/20 Unknown Rx Metoprolol [Lopressor TAB] 12.5 mg PO BID #30 tablet 06/10/20 Unknown Rx Zinc Sulfate 220 mg PO BID #14 capsule 06/10/20 Unknown Rx dexAMETHasone [Decadron] 6 mg PO DAILY #5 tablet 06/10/20 Unknown Rx Active Meds: Active Medications Acetaminophen (Acetaminophen 325 Mg Tab) 650 mg PO Q6H PRN PRN Reason: Pain, Mild (1-3) Last Admin: 10/30/20 11:02 Dose: 650 mg Documented by: Dextrose (Dextrose 50% In Water (25gm) 50 Ml Syringe) 50 ml IV Q30MIN PRN; Protocol PRN Reason: Hypoglycemia Sodium Chloride (Nacl 0.9% 1000 Ml) 1,000 mls @ 125 mls/hr IV DIRECT BRIAN Last Admin: 10/30/20 06:04 Dose: 125 mls/hr Documented by: Cefepime HCl (Cefepime/Ns 2 Gm/100 Ml) 2 gm in 100 mls @ 200 mls/hr IV Q24H BRIAN; Protocol Insulin Human Lispro (Insulin Lispro 100 Unit/Ml) 0 unit SUB-Q ACHS BRIAN; Protocol Last Admin: 10/30/20 13:01 Dose: 2 unit Documented by: Magnesium Hydroxide (Magnesium Hydroxide (Mom) Oral Liqd Udc) 30 ml PO Q4H PRN PRN Reason: Constipation Morphine Sulfate (Morphine 2 Mg/1 Ml Inj) 2 mg IV Q4H PRN PRN Reason: Pain, Moderate (4-6) Ondansetron HCl (Ondansetron 4 Mg/2 Ml Inj) 4 mg IV Q8H PRN PRN Reason: Nausea And Vomiting Sodium Chloride (Sodium Chloride 0.9% 10 Ml Flush Syringe) 10 ml IV BID [facility] Last Admin: 10/30/20 09:06 Dose: 10 ml Documented by: Sodium Chloride (Sodium Chloride 0.9% 10 Ml Flush Syringe) 10 ml IV PRN PRN PRN Reason: LINE FLUSH Physical Examination - Physical Exam Narrative exam: Physical Exam: Constitutional: Alert, cooperative. No acute distress Head, Ears, Nose: Normocephalic, atraumatic. External ears, nose normal Eyes: Conjunctivae/corneas clear. No icterus. No ptosis. Neck: Supple, no meningeal signs Cardiovascular: S1, S2 normal. Respiratory: Good air entry, clear to auscultation bilaterally GI: Soft, non-tender; bowel sounds normal. No peritoneal signs. CVA tenderness + Musculoskeletal: No pedal edema, no cyanosis. Skin: No rash or abscess Hem/Lymphatic: No palpable cervical or supraclavicular nodes. No lymphangitis Psych: Mood ok. Affect normal Neurological: Awake, alert, oriented. No gross abnormality - Constitutional Vitals: Vital Signs Temp Pulse Resp BP Pulse Ox 97.6 F 90 18 130/67 99 10/30/20 04:54 10/30/20 04:54 10/30/20 04:54 10/30/20 04:54 10/30/20 04:54 Temperature -Last 24 Hours Temperature 97.6 F Temperature 103.1 F Results - Labs CBC & Chem 7: 10/30/20 05:19 10/30/20 05:19 Labs: Abnormal lab results 10/29/20 10/29/20 10/29/20 Range/Units 18:02 18:07 18:07 WBC (4.5-11.0) K/mm3 RBC (3.65-5.03) M/mm3 Hgb (10.1-14.3) gm/dl Hct (30.3-42.9) % MCH (28-32) pg Lymph % (Auto) (13.4-35.0) % Seg Neutrophils % (40.0-70.0) % Seg Neuts % (Manual) 90.0 H (40.0-70.0) % Lymphocytes % (Manual) 2.0 L (13.4-35.0) % Seg Neutrophils # (1.8-7.7) K/mm3 Lymphocytes # (Manual) 0.1 L (1.2-5.4) K/mm3 Sodium 127 L (137-145) mmol/L Chloride 95.4 L (98-107) mmol/L Carbon Dioxide 17 L (22-30) mmol/L BUN 63 H (7-17) mg/dL Creatinine 2.0 H (0.6-1.2) mg/dL Glucose 240 H (65-100) mg/dL POC Glucose 230 H (70-105) mg/dL Calcium 8.1 L (8.4-10.2) mg/dL Alkaline Phosphatase 183 H (35-129) units/L Albumin 3.1 L (3.9-5) g/dL Urine WBC (Auto) (0.0-6.0) /HPF 10/30/20 10/30/2021 Range/Units 05:19 05:19 09:04 WBC 11.1 H (4.5-11.0) K/mm3 RBC 3.60 L (3.65-5.03) M/mm3 Hgb 9.8 L (10.1-14.3) gm/dl Hct 30.1 L (30.3-42.9) % MCH 27 L (28-32) pg Lymph % (Auto) 10.7 L (13.4-35.0) % Seg Neutrophils % 82.9 H (40.0-70.0) % Seg Neuts % (Manual) (40.0-70.0) % Lymphocytes % (Manual) (13.4-35.0) % Seg Neutrophils # 9.2 H (1.8-7.7) K/mm3 Lymphocytes # (Manual) (1.2-5.4) K/mm3 Sodium 134 L D (137-145) mmol/L Chloride (98-107) mmol/L Carbon Dioxide 19 L (22-30) mmol/L BUN 63 H (7-17) mg/dL Creatinine 2.1 H (0.6-1.2) mg/dL Glucose 216 H (65-100) mg/dL POC Glucose 207 H (70-105) mg/dL Calcium 8.2 L (8.4-10.2) mg/dL Alkaline Phosphatase (35-129) units/L Albumin (3.9-5) g/dL Urine WBC (Auto) (0.0-6.0) /HPF 10/30/20 10/30/20 Range/Units 11:06 Unknown WBC (4.5-11.0) K/mm3 RBC (3.65-5.03) M/mm3 Hgb (10.1-14.3) gm/dl Hct (30.3-42.9) % MCH (28-32) pg Lymph % (Auto) (13.4-35.0) % Seg Neutrophils % (40.0-70.0) % Seg Neuts % (Manual) (40.0-70.0) % Lymphocytes % (Manual) (13.4-35.0) % Seg Neutrophils # (1.8-7.7) K/mm3 Lymphocytes # (Manual) (1.2-5.4) K/mm3 Sodium (137-145) mmol/L Chloride (98-107) mmol/L Carbon Dioxide (22-30) mmol/L BUN (7-17) mg/dL Creatinine (0.6-1.2) mg/dL Glucose (65-100) mg/dL POC Glucose 196 H (70-105) mg/dL Calcium (8.4-10.2) mg/dL Alkaline Phosphatase (35-129) units/L Albumin (3.9-5) g/dL Urine WBC (Auto) 145.0 H (0.0-6.0) /HPF - Imaging and Cardiology Chest x-ray: report reviewed, image reviewed (no pneumonia) Assessment and Plan Cultures: 10/29/2020 blood culture: No growth so far A/P: 64-year-old female with diabetes, hypertension: #Sepsis, likely secondary to UTI and pyelonephritis: UA showed pyuria, CT showed perinephric stranding. #Diabetes mellitus, uncontrolled #ANDRE versus CKD Recs: Continue renally dosed IV cefepime 1 g every 12 hours Follow-up blood and urine cultures Jessica Silva MD, FACP [facility] ([facility] O: [phone] F: [phone]
[2020-10-30] MEDS ORDERED: CEFEPIME/NS 1 GM/100 ML 1 GM/100 ML BAG IV SCH (14:00)
--- NOTE | 2020-10-30 15:52 | Consultation ---
History of Present Illness - Reason for Consult Consult date: 10/30/20 acute renal failure - History of Present Illness Mr. Lynne is a 64-year-old female with known history of hypertension and diabetes mellitus who presented to the ED with a history of fever and chills x 4 days. She also reported lower abdominal discomfort x 2 days associated with nausea and vomiting. She denies hematuria or dysuria. She denies chest pain, shortness of breath. Upon arrival in the emergency room, patient was found tachycardic with heart rate in the 140s, temperature of 103.1 F. Past History Past Medical History: diabetes, hypertension Past Surgical History: Other (Bladder surgery) Social history: no significant social history Family history: no significant family history Medications and Allergies Allergies Allergy/AdvReac Type Severity Reaction Status Date / Time sunflower seed Allergy Anaphylaxis Verified 06/05/20 16:53 Home Medications Medication Instructions Recorded Confirmed Last Taken Type Apixaban [Eliquis] 5 mg PO Q12HR #14 tablet 06/10/20 Unknown Rx Ascorbic Acid [Vitamin C] 1,000 mg PO BID #14 tablet 06/10/20 Unknown Rx Cholecalciferol (Vitamin D3) 5,000 unit PO DAILY #7 tablet 06/10/20 Unknown Rx [Vitamin D3] Insulin Glargine [Lantus VIAL] 30 units SUB-Q QAMDIAB #1 vial 06/10/20 Unknown Rx Lispro Insulin [HumaLOG] 0 unit SUB-Q ACHS #1 vial 06/10/20 Unknown Rx Lispro Insulin [HumaLOG] 12 unit SUB-Q AC #1 vial 06/10/20 Unknown Rx Metoprolol [Lopressor TAB] 12.5 mg PO BID #30 tablet 06/10/20 Unknown Rx Zinc Sulfate 220 mg PO BID #14 capsule 06/10/20 Unknown Rx dexAMETHasone [Decadron] 6 mg PO DAILY #5 tablet 06/10/20 Unknown Rx Active Meds: Active Medications Acetaminophen (Acetaminophen 325 Mg Tab) 650 mg PO Q6H PRN PRN Reason: Pain, Mild (1-3) Last Admin: 10/30/20 11:02 Dose: 650 mg Documented by: Dextrose (Dextrose 50% In Water (25gm) 50 Ml Syringe) 50 ml IV Q30MIN PRN; Protocol PRN Reason: Hypoglycemia Sodium Chloride (Nacl 0.9% 1000 Ml) 1,000 mls @ 125 mls/hr IV DIRECT BRIAN Last Admin: 10/30/20 06:04 Dose: 125 mls/hr Documented by: Cefepime HCl (Cefepime/Ns 1 Gm/100 Ml) 1 gm in 100 mls @ 200 mls/hr IV Q24H BRIAN; Protocol Insulin Human Lispro (Insulin Lispro 100 Unit/Ml) 0 unit SUB-Q ACHS BRIAN; Protocol Last Admin: 10/30/20 13:01 Dose: 2 unit Documented by: Magnesium Hydroxide (Magnesium Hydroxide (Mom) Oral Liqd Udc) 30 ml PO Q4H PRN PRN Reason: Constipation Morphine Sulfate (Morphine 2 Mg/1 Ml Inj) 2 mg IV Q4H PRN PRN Reason: Pain, Moderate (4-6) Ondansetron HCl (Ondansetron 4 Mg/2 Ml Inj) 4 mg IV Q8H PRN PRN Reason: Nausea And Vomiting Sodium Chloride (Sodium Chloride 0.9% 10 Ml Flush Syringe) 10 ml IV BID [facility] Last Admin: 10/30/20 09:06 Dose: 10 ml Documented by: Sodium Chloride (Sodium Chloride 0.9% 10 Ml Flush Syringe) 10 ml IV PRN PRN PRN Reason: LINE FLUSH Review of Systems All systems: negative Exam - Vital Signs Vital signs: Vital Signs Temp Pulse Resp BP Pulse Ox 103.1 F H 144 H 20 128/74 95 10/29/20 18:02 10/29/20 18:02 10/29/20 18:02 10/29/20 18:02 10/29/20 18:02 - General Appearance General appearance: well-developed, well-nourished EENT: ATNC Respiratory: Clear to Ascultation Heart: regular, S1S2 Gastrointestinal: Present: normal. Absent: tenderness, distended Integumentary: no rash, warm and dry Neurologic: no focal deficit, alert and oriented x3 Psychiatric: mood/affect appropriate, cooperative Results - Lab Results 10/30/20 05:19 10/30/20 05:19 Most recent lab results Calcium 8.2 mg/dL (8.4-10.2) L 10/30/20 05:19 Assessment and Plan Impression: * Acute kidney injury secondary to prerenal azotemia vs ATN * Sepsis * UTI * Hyponatremia * Hypertension * Type II diabetes mellitus Plan: * No acute indication for renal replacement therapy * Continue IV for hydration * Abx per ID * Dose medications for renal function * Avoid potential nephrotoxins * AM labs
--- NOTE | 2020-10-30 18:08 | Electrocardiograph Report ---
[facility] Test Date: 2020-10-29 Test Time: 21:13:12 Pat Name: LAZARO GUZMAN Department: Room: A368 1 Gender: F Physician Office Assistant: : 1955 Requested By: MARISOL DALY Order Number: [id number] Reading MD: Antonino Harkins Measurements Intervals Antoine Rate: 103 P: 57 OH: 150 QRS: 3 QRSD: 77 T: 58 QT: 347 QTc: 459 Interpretive Statements Sinus tachycardia Multiple ventricular premature complexes No previous ECG available for comparison Electronically Signed On 10-30-2020 18:08:36 EDT by Antonino Harkins
[2020-10-31 06:33] LABS: Basophils % (Auto) 0.3 % (0.0-1.8); Eosinophils # (Auto) 0.1 K/mm3 (0.0-0.4); Eosinophils % (Auto) 0.6 % (0.0-4.3); Hemoglobin 9.1 gm/dl (10.1-14.3); Lymphocytes % (Auto) 9.5 % (13.4-35.0); Mean Corpuscular HGB Conc 34 % (30-34); Mean Corpuscular Volume 85 fl (79-97); Monocytes % (Auto) 9.9 % (0.0-7.3); Platelet Count 147 K/mm3 (140-440); Red Blood Count 3.18 M/mm3 (3.65-5.03); Red Cell Distribution Width 15.1 % (13.2-15.2)
[2020-10-31 07:09] LABS: Calcium 8.4 mg/dL (8.4-10.2)
[2020-10-31] MEDS ORDERED: CEFEPIME/NS 2 GM/100 ML 2 GM/100 ML BAG IV SCH (08:00)
[2020-10-31] MEDS: INSULIN LISPRO 100 UNIT/ML SUB-Q SCH ×4 (08:04→22:44)
[2020-10-31] MEDS: CEFEPIME/NS 1 GM/100 ML 1 GM/100 ML BAG IV SCH ×2 (09:00→21:46)
--- NOTE | 2020-10-31 10:24 | Progress Note ---
Assessment and Plan Assessment and Plan Acute encephalopathy Secondary to sepsis and UTI -- UTI (urinary tract infection) Current Visit: No Status: Acute Patient placed on empiric IV antibiotics. We will await urine culture results. --Sepsis secondary to UTI Current Visit: Yes Status: Acute Fever, leukocytosis, tachycardia, UTI possibly secondary to the UTI. Continue on IV fluid and antibiotics. --Acute versus acute on chronic kidney disease; Current Visit: Yes Status: Acute Vasomotor nephropathy, closely monitor renal function Avoid nephrotoxins, nephrology consulted Gentle hydration --Hypertension Current Visit: Yes Status: Acute We will resume home medications once reconciled and monitor vital signs closely. --Hyperglycemia/diabetes mellitus --Current Visit: Yes Status: Acute We will monitor Accu-Cheks. --DVT prophylaxis Current Visit: No Status: Acute Patient placed on subcutaneous heparin. --Obesity; BMI 33.3 Current Visit: No Status: Acute. Patient needs weight reduction Diet modification exercise as tolerated and weight reduction When medically stable -- Full code status Patient is a full code. We will closely monitor patient and adjust management as needed Plan of care reviewed with the patient and her nurse nurse Follow nephrology evaluation recommendations Subjective Date of service: 10/31/20 Principal diagnosis: UTI, acute hyponatremia Interval history: Brief history; Admitted with fever chills, noted to be in sepsis secondary to UTI On antibiotics, follow cultures, ID nephrology following Possible discharge in 1 to 2 days if stable 10/31/2020 Patient doing well today Objective - Constitutional Vitals: Vital Signs - 12hr 10/31/20 05:49 Temperature 98.6 F Pulse Rate 96 H Respiratory 20 Rate Blood Pressure 151/85 O2 Sat by Pulse 100 Oximetry General appearance: Present: no acute distress, well-nourished - EENT Eyes: PERRL, EOM intact ENT: hearing intact, clear oral mucosa Ears: bilateral: normal - Neck Neck: supple, normal ROM - Respiratory Respiratory effort: normal Respiratory: bilateral: CTA - Breasts Breasts: normal - Cardiovascular Heart rate: 78 Rhythm: regular Heart Sounds: Present: S1 & S2. Absent: gallop, rub Extremities: pulses intact, No edema, normal color, Full ROM - Gastrointestinal General gastrointestinal: Present: soft, non-tender, non-distended, normal bowel sounds Rectal Exam: deferred - Genitourinary Female genitourinary: normal - Integumentary Integumentary: clear, warm, dry - Musculoskeletal Musculoskeletal: 1, strength equal bilaterally - Neurologic Neurologic: moves all extremities - Psychiatric Psychiatric: memory intact, appropriate mood/affect, intact judgment & insight - Allied health notes Allied health notes reviewed: nursing, case management - Labs CBC & Chem 7: 10/31/20 05:26 10/31/20 05:26 Labs: Abnormal lab results 10/30/20 10/30/20 10/30/20 Range/Units 11:06 17:14 22:15 RBC (3.65-5.03) M/mm3 Hgb (10.1-14.3) gm/dl Hct (30.3-42.9) % Lymph % (Auto) (13.4-35.0) % [place] % (Auto) (0.0-7.3) % Lymph # (Auto) (1.2-5.4) K/mm3 [place] # (Auto) (0.0-0.8) K/mm3 Seg Neutrophils % (40.0-70.0) % Seg Neutrophils # (1.8-7.7) K/mm3 Sodium (137-145) mmol/L Carbon Dioxide (22-30) mmol/L BUN (7-17) mg/dL Creatinine (0.6-1.2) mg/dL Glucose (65-100) mg/dL POC Glucose 196 H 246 H 264 H (70-105) mg/dL 10/31/20 10/31/20 10/31/20 Range/Units 05:26 05:26 07:47 RBC 3.18 L (3.65-5.03) M/mm3 Hgb 9.1 L (10.1-14.3) gm/dl Hct 27.0 L (30.3-42.9) % Lymph % (Auto) 9.5 L (13.4-35.0) % [place] % (Auto) 9.9 H (0.0-7.3) % Lymph # (Auto) 1.0 L (1.2-5.4) K/mm3 [place] # (Auto) 1.0 H (0.0-0.8) K/mm3 Seg Neutrophils % 79.7 H (40.0-70.0) % Seg Neutrophils # 8.1 H (1.8-7.7) K/mm3 Sodium 134 L (137-145) mmol/L Carbon Dioxide 18 L (22-30) mmol/L BUN 50 H (7-17) mg/dL Creatinine 1.5 H (0.6-1.2) mg/dL Glucose 183 H (65-100) mg/dL POC Glucose 167 H (70-105) mg/dL HEART Score - HEART Score Troponin: Troponin T < 0.010 ng/mL (0.00-0.029) 10/29/20 18:07 Troponin T < 0.010 ng/mL (0.00-0.029) 10/29/20 18:07
[2020-10-31] MEDS: SODIUM CHLORIDE 0.9% 1000 ML 1,000 ML IV SCH (12:10)
--- NOTE | 2020-10-31 18:50 | Progress Note ---
Assessment and Plan Impression: * Acute kidney injury secondary to prerenal azotemia vs ATN * Sepsis * Ecoli bacteremia * UTI * Hyponatremia * Hypertension * Type II diabetes mellitus Plan: * Renal function improving * No acute indication for renal replacement therapy * Continue IV for hydration * Abx per ID * Dose medications for renal function * Avoid potential nephrotoxins * AM labs Subjective Date of service: 10/31/20 Principal diagnosis: UTI, acute hyponatremia Interval history: No acute events overnight Objective - Vital Signs Vital signs: Vital Signs - 12hr 10/31/20 11:18 Temperature 98.3 F Pulse Rate 99 H Respiratory 22 Rate Blood Pressure 147/75 O2 Sat by Pulse 98 Oximetry - General Appearance General appearance: well-developed, well-nourished Cardiology: regular, S1S2 Gastrointestinal: normal, no tenderness, no distended - Lab 10/31/20 05:26 10/31/20 05:26 Most recent lab results Calcium 8.4 mg/dL (8.4-10.2) 10/31/20 05:26 Medications & Allergies - Medications Allergies/Adverse Reactions: Allergies sunflower seed Allergy (Verified 06/05/20 16:53) Anaphylaxis Home Medications: Home Medications Medication Instructions Recorded Confirmed Last Taken Type Apixaban [Eliquis] 5 mg PO Q12HR #14 tablet 06/10/20 Unknown Rx Ascorbic Acid [Vitamin C] 1,000 mg PO BID #14 tablet 06/10/20 Unknown Rx Cholecalciferol (Vitamin D3) 5,000 unit PO DAILY #7 tablet 06/10/20 Unknown Rx [Vitamin D3] Insulin Glargine [Lantus VIAL] 30 units SUB-Q QAMDIAB #1 vial 06/10/20 Unknown Rx Lispro Insulin [HumaLOG] 0 unit SUB-Q ACHS #1 vial 06/10/20 Unknown Rx Lispro Insulin [HumaLOG] 12 unit SUB-Q AC #1 vial 06/10/20 Unknown Rx Metoprolol [Lopressor TAB] 12.5 mg PO BID #30 tablet 06/10/20 Unknown Rx Zinc Sulfate 220 mg PO BID #14 capsule 06/10/20 Unknown Rx dexAMETHasone [Decadron] 6 mg PO DAILY #5 tablet 06/10/20 Unknown Rx Active Medications: Generic Name Dose Route Start Last Admin Trade Name Freq PRN Reason Stop Dose Admin Acetaminophen 650 mg 10/29/20 18:16 10/30/20 22:28 Acetaminophen 325 Mg Tab PO 650 mg Q6H PRN Administration Pain, Mild (1-3) Dextrose 50 ml 10/29/20 22:22 Dextrose 50% In Water (25gm) 50 Ml Syringe IV Q30MIN PRN Hypoglycemia Protocol Sodium Chloride 1,000 mls @ 125 mls/hr 10/29/20 22:30 10/31/20 12:10 Nacl 0.9% 1000 Ml IV 125 mls/hr DIRECT BRIAN Administration Cefepime HCl 1 gm in 100 mls @ 200 mls/hr 10/31/20 10:00 10/31/20 09:00 Cefepime/Ns 1 Gm/100 Ml IV 200 mls/hr Q12HR BRIAN Administration Protocol Insulin Human Lispro 0 unit 10/30/20 07:30 10/31/20 17:19 Insulin Lispro 100 Unit/Ml SUB-Q 4 unit ACHS BRIAN Administration Protocol Magnesium Hydroxide 30 ml 10/29/20 22:22 Magnesium Hydroxide (Mom) Oral Liqd Udc PO Q4H PRN Constipation Morphine Sulfate 2 mg 10/29/20 22:22 Morphine 2 Mg/1 Ml Inj IV Q4H PRN Pain, Moderate (4-6) Ondansetron HCl 4 mg 10/29/20 22:22 Ondansetron 4 Mg/2 Ml Inj IV Q8H PRN Nausea And Vomiting Sodium Chloride 10 ml 10/30/20 10:00 10/31/20 09:00 Sodium Chloride 0.9% 10 Ml Flush Syringe IV Not Given BID BRIAN Sodium Chloride 10 ml 10/29/20 22:22 Sodium Chloride 0.9% 10 Ml Flush Syringe IV PRN PRN LINE FLUSH
[2020-10-31] MEDS: ACETAMINOPHEN 325 MG TAB PO PRN (19:42)
[2020-11-01] MEDS: SODIUM CHLORIDE 0.9% 1000 ML 1,000 ML IV SCH (05:49)
[2020-11-01 06:36] LABS: Basophils % (Auto) 0.4 % (0.0-1.8); Eosinophils # (Auto) 0.1 K/mm3 (0.0-0.4); Eosinophils % (Auto) 0.9 % (0.0-4.3); Hematocrit 26.7 % (30.3-42.9); Hemoglobin 8.8 gm/dl (10.1-14.3); Lymphocytes # (Auto) 1.1 K/mm3 (1.2-5.4); Lymphocytes % (Auto) 10.6 % (13.4-35.0); Mean Corpuscular HGB Conc 33 % (30-34); Mean Corpuscular Volume 85 fl (79-97); Monocytes # (Auto) 1.2 K/mm3 (0.0-0.8); Monocytes % (Auto) 11.8 % (0.0-7.3); Platelet Count 172 K/mm3 (140-440); Red Blood Count 3.15 M/mm3 (3.65-5.03); Red Cell Distribution Width 15.3 % (13.2-15.2)
[2020-11-01 06:50] LABS: Albumin 2.3 g/dL (3.9-5); Calcium 8.5 mg/dL (8.4-10.2)
[2020-11-01] MEDS: INSULIN LISPRO 100 UNIT/ML SUB-Q SCH ×2 (07:30→11:30)
[2020-11-01] MEDS ORDERED: CEFEPIME/NS 2 GM/100 ML 2 GM/100 ML BAG IV SCH (10:00)
[2020-11-01 11:32] VITALS: BP 148/75
--- NOTE | 2020-11-01 14:01 | Discharge Summary ---
Providers - Providers Date of Admission: 10/30/20 11:41 Date of discharge: 11/01/20 Attending physician: WOO CLARK 10/29/20 22:22 Consult to Dietitian/Nutrition [CONS] Routine Physician Instructions: Reason For Exam: Reason for Consult: Diet education Consult to Physician [CONS] Routine Comment: Consulting Provider: KONRAD WHITTINGTON Physician Instructions: Reason For Exam: Sepsis- 10/29/20 22:40 Consult to Physician [CONS] Routine Comment: Consulting Provider: SWETA ROBLES Physician Instructions: Reason For Exam: ANDRE Primary care physician: [employer] Hospitalization Condition: Serious Procedures: Subjective Date of service: 10/31/20 Principal diagnosis: UTI, acute hyponatremia Interval history: Brief history; Admitted with fever chills, noted to be in sepsis secondary to UTI On antibiotics, follow cultures, ID nephrology following Possible discharge in 1 to 2 days if stable 10/31/2020 Patient doing well today 11/01/2020 Patient back to normal self E. coli sensitive to Levaquin ceftriaxone and many other antibiotics except tetracycline Patient to be discharged on Levaquin for another 5 days Hospital course: Assessment and Plan Acute encephalopathy Secondary to sepsis and UTI Resolved -- UTI (urinary tract infection) Current Visit: No Status: Acute Patient placed on empiric IV antibiotics. We will await urine culture results. E. coli in the urine sensitive to Levaquin ceftriaxone and many other antibiotics --Sepsis secondary to UTI Current Visit: Yes Status: Acute Fever, leukocytosis, tachycardia, UTI possibly secondary to the UTI. We will discharge on oral Levaquin for another 5 days --Acute versus acute on chronic kidney disease; Current Visit: Yes Status: Acute Vasomotor nephropathy resolved --Hypertension Current Visit: Yes Status: Acute We will resume home medications once reconciled and monitor vital signs closely. --Hyperglycemia/diabetes mellitus --Current Visit: Yes Status: Acute We will discharge on oral hypoglycemics --DVT prophylaxis Current Visit: No Status: Acute Patient placed on subcutaneous heparin. --Obesity; BMI 33.3 Current Visit: No Status: Acute. Patient needs weight reduction Diet modification exercise as tolerated and weight reduction When medically stable -- Full code status Patient is a full code. Disposition: TO HOME OR SELFCARE Final Discharge Diagnosis (Prints w/discharge instructions): Acute encephalopathy. Sepsis. Urinary tract infection. Type 2 diabetes mellitus. Acute kidney injury Time spent for discharge: 35 minutes - Discharge Diagnoses (1) Acute metabolic encephalopathy Status: Acute (2) Sepsis Status: Acute (3) ANDRE (acute kidney injury) Status: Acute (4) Diabetes mellitus Status: Acute (5) Hypertension Status: Acute (6) Pyelonephritis Status: Acute (7) UTI (urinary tract infection) Status: Acute (8) DVT prophylaxis Status: Acute Core Measure Documentation - Palliative Care Palliative Care/ Comfort Measures: Not Applicable - Core Measures Any of the following diagnoses?: none Exam - Constitutional Vitals: Temp Pulse Resp BP Pulse Ox 98.4 F 93 H 20 148/75 99 11/01/20 11:30 11/01/20 11:30 11/01/20 11:30 11/01/20 11:30 11/01/20 11:30 General appearance: Present: no acute distress, well-nourished - EENT Eyes: Present: PERRL ENT: hearing intact, clear oral mucosa - Neck Neck: Present: supple, normal ROM - Respiratory Respiratory effort: normal Respiratory: bilateral: CTA - Cardiovascular Heart rate: 78 Rhythm: regular Heart Sounds: Present: S1 & S2. Absent: rub, click - Extremities Extremities: no ischemia, pulses intact, pulses symmetrical, No edema Peripheral Pulses: within normal limits - Abdominal General gastrointestinal: Present: soft, non-tender, non-distended, normal bowel sounds Female genitourinary: Present: normal - Integumentary Integumentary: Present: clear, warm, dry - Musculoskeletal Musculoskeletal: gait normal, strength equal bilaterally - Psychiatric Psychiatric: appropriate mood/affect, intact judgment & insight - Neurologic Neurologic: CNII-XII intact, moves all extremities - Allied Health Allied health notes reviewed: nursing, case management Plan Activity: no restrictions Diet: diabetic Follow up with: PRIMARY CARE, [Primary Care Provider] - 3-5 Days
== END 2020-11-01 15:00 | disposition home or self-care (01) | DRG 871 ==
LOC: ED 17:43 → 3A 21:46 → EDBD 10-30 11:41 → OBSVTOIN 10-30 11:41
PROVIDERS: ADMIT Internal Medicine Geriatric Medicine; ATTEND Internal Medicine
DX: A41.51 Sepsis due to Escherichia coli [E. coli] (principal); N17.0 Acute kidney failure with tubular necrosis; G93.41 Metabolic encephalopathy; N12 Tubulo-interstitial nephritis, not specified as acute or chronic; E87.1 Hypo-osmolality and hyponatremia; Z20.822 Contact with and (suspected) exposure to COVID-19; N18.9 Chronic kidney disease, unspecified; E11.65 Type 2 diabetes mellitus with hyperglycemia; E11.22 Type 2 diabetes mellitus with diabetic chronic kidney disease; E66.9 Obesity, unspecified; I12.9 Hypertensive chronic kidney disease with stage 1 through stage 4 chronic kidney disease, or unspecified chronic kidney disease; Z71.3 Dietary counseling and surveillance; Z68.32 Body mass index [BMI] 32.0-32.9, adult; Z79.899 Other long term (current) drug therapy; Z79.4 Long term (current) use of insulin; Z90.49 Acquired absence of other specified parts of digestive tract
CPT/HCPCS: 36415; 71045; 71250; 74176; 78580; 80048; 80053; 80202; 81001; 82010; 82140; 82805; 82962; 84484; 85007; 85025; 85610; 87040; 87076; 87186; 93005; 96365; 96366; 96375; G0378; A9540; J0692; J1815; J3370; J7030; J7040; U0003